=== PATIENT | male | born 1965 | race Caucasian/White ===

== ENCOUNTER 2016-11-14 12:57 | Inpatient (IN) | payer OTHER ==
[2016-11-14] VITALS (8 sets, daily range): BP systolic 114–132; BP diastolic 67–85; PULSE 95–127; RESP 16–18; TEMP 98.2–99; O2SAT 93–99
[~2016-11-14] VITALS: Ht 177.8 cm; Wt 103.0 kg
[~2016-11-14 12:57] MED LIST: NAPR550 PO; ST JTAB PO
--- NOTE | 2016-11-14 13:06 | PD ---
Physical Exam Date Seen by Provider: Nov 14, 2016 Time Seen by Provider: 13:03 Narrative 51 YOWM C/O FINGER TIP BRUISING. L INDEX THE WORST. POS DM. NO TOB. NO SOB OR CP VSS Data Data Last Documented VS Vital Signs Date Time Temp Pulse Resp B/P Pulse Ox O2 Delivery O2 Flow Rate FiO2 11/14/16 13:01 98.6 127 18 114/85 94 MDM Medical Record Reviewed: Yes Supervised Visit with RAYSA: Yes Mesfin Capellan Nov 14, 2016 13:06
[2016-11-14] MEDS ORDERED: SODIUM CHLORIDE 0.9% FLUSH 10 ML FLUSH IVF PRN (13:15)
[2016-11-14] MEDS ORDERED: GLIM1TAB PO (13:16)
[2016-11-14] MEDS ORDERED: METF500T PO (13:16)
[2016-11-14] MEDS ORDERED: ALBUAER3 INH (13:16)
[2016-11-14] MEDS ORDERED: ZANT300T PO (13:16)
--- NOTE | 2016-11-14 13:34 | PD ---
HPI Chief Complaint: Injury Time Seen by Provider: 13:26 Travel History International Travel<30 days: No Contact w/Intl Traveler<30days: No Traveled to known affect area: No History of Present Illness HPI [id number] male patient comes in the emergency department complaining of pain and discoloration the distal phalanx of his left hand second digit that began approximately 3 weeks ago. Patient awoke with the pain however over time progressively become more painful and discoloration to the tip of his finger. Patient states 2 days ago began as a pressure sensation in his right hand second digit distal phalanx. Patient denies any history of smoking or drug use. Patient denies any known trauma to it. Patient denies doing anything for it. Denies anything making it better. Pain is worse with movement of his left finger and palpation. Pain is sharp stabbing like in nature. Patient reports past medical history includes diabetes type 2, asthma, and chronic sinusitis. Denies any fevers with this. States just finished antibiotic yesterday for his chronic sinusitis PFSH Past Medical History Hx Anticoagulant Therapy: No Asthma: Yes Cardiovascular Problems: No Chemotherapy: No Cerebrovascular Accident: No Diabetes: No Patient Takes Glucophage: Yes Diminished Hearing: No Respiratory: Yes (ASTHMA ) Tetanus Vaccination: > 5 Years Influenza Vaccination: No Past Surgical History Hysterectomy: No Other Surgery: Yes (H/O CYST REMOVAL) Social History Alcohol Use: No Tobacco Use: No Substance Use: No Allergies-Medications (Allergen,Severity, Reaction): Coded Allergies: No Known Allergies (Verified , 11/14/16) Reported Meds & Prescriptions Reported Meds & Active Scripts Active Reported Zantac (Ranitidine HCl) 300 Mg Tab 300 Mg PO DAILY Proair Hfa 8.5 GM Inh (Albuterol Sulfate) 90 Mcg/Act Aer 1 Puff INH Q4H PRN 108 mcg/actuation Glimepiride 1 Mg Tab 1 Mg PO DAILY Take with breakfast or first main meal Metformin (Metformin HCl) 500 Mg Tab 500 Mg PO BIDPC With meals Review of Systems Except as stated in HPI: all other systems reviewed are Neg Physical Exam Narrative GENERAL: Well-developed, overly nourished, in no acute distress, and non-ill appearing. SKIN: Focused skin assessment warm and dry. Cyanotic/necrotic appearing distal phalanx second digit left upper extremity. Patient has purple discoloration noted to the distal phalanx of the first third digit left upper extremity and first second and third digits of right upper extremity. There is decreased capillary refill and are cooler to palpation than fourth and fifth digits. Is neurologically intact. Patient is slightly decreased range of motion with flexion of the left hand second digit secondary to pain. HEAD: Atraumatic. Normocephalic. EYES: Pupils equal and round. EOMI. No scleral icterus. No injection or drainage. ENT: No nasal bleeding or discharge. Mucous membranes pink and moist. NECK: Trachea midline. Supple. No nuclear rigidity. CARDIOVASCULAR: Radial pulses 2+, intact, equal bilaterally. RESPIRATORY: No accessory muscle use. No respiratory distress. MUSCULOSKELETAL: No obvious deformities. No clubbing. No edema. Full range of motion. NEUROLOGICAL: Awake and alert. No obvious cranial nerve deficits. Motor grossly within normal limits. Normal speech. PSYCHIATRIC: Appropriate mood and affect; insight and judgment normal. Data Data Last Documented VS Vital Signs Date Time Temp Pulse Resp B/P Pulse Ox O2 Delivery O2 Flow Rate FiO2 11/14/16 15:07 17 11/14/16 14:56 123/77 98 Room Air 11/14/16 13:35 103 11/14/16 13:01 98.6 Orders Basic Metabolic Panel (Bmp) (11/14/16 13:15) Complete Blood Count With Diff (11/14/16 13:15) Prothrombin Time / Inr (Pt) (11/14/16 13:15) Act Partial Throm Time (Ptt) (11/14/16 13:15) Ecg Monitoring (11/14/16 13:15) Iv Access Insert/Monitor (11/14/16 13:15) Oximetry (11/14/16 13:15) Oxygen Administration (11/14/16 13:15) Sodium Chloride 0.9% Flush (Ns Flush) (11/14/16 13:15) Finger (Apt2xut) (11/14/16 ) Cta Up Extrem W Iv Cont W 3d (11/14/16 ) Morphine Inj (Morphine Inj) (11/14/16 13:45) Ondansetron Inj (Zofran Inj) (11/14/16 13:45) Sodium Chlor 0.9% 1000 Ml Inj (Ns 1000 M (11/14/16 13:45) Lactic Acid (11/14/16 14:48) Potassium Chloride (Kcl) (11/14/16 15:00) Sodium Chlor 0.9% 1000 Ml Inj (Ns 1000 M (11/14/16 15:00) Morphine Inj (Morphine Inj) (11/14/16 15:00) Morphine Inj (Morphine Inj) (11/14/16 15:00) Blood Culture (11/14/16 15:02) Sodium Chlor 0.9% 1000 Ml Inj (Ns 1000 M (11/14/16 15:15) Sodium Chlor 0.9% 1000 Ml Inj (Ns 1000 M (11/14/16 15:15) Sodium Chlor 0.9% 1000 Ml Inj (Ns 1000 M (11/14/16 15:15) Ct Brain W & W/O Iv Contrast (11/14/16 ) Piperacil-Tazo 4.5 Gm Premix (Zosyn 4.5 (11/14/16 15:15) Vancomycin Inj (Vancomycin Inj) (11/14/16 15:15) Urinalysis - C+S If Indicated (11/14/16 15:05) Labs Laboratory Tests Test 11/14/16 11/14/16 13:30 14:50 White Blood Count 22.5 TH/MM3 Red Blood Count 4.25 MIL/MM3 Hemoglobin 10.5 GM/DL Hematocrit 33.3 % Mean Corpuscular Volume 78.4 FL Mean Corpuscular Hemoglobin 24.6 PG Mean Corpuscular Hemoglobin 31.4 % Concent Red Cell Distribution Width 15.8 % Platelet Count 504 TH/MM3 Mean Platelet Volume 7.0 FL Neutrophils (%) (Auto) 88.3 % Lymphocytes (%) (Auto) 4.7 % Monocytes (%) (Auto) 6.8 % Eosinophils (%) (Auto) 0.1 % Basophils (%) (Auto) 0.1 % Neutrophils # (Auto) 19.9 TH/MM3 Lymphocytes # (Auto) 1.1 TH/MM3 Monocytes # (Auto) 1.5 TH/MM3 Eosinophils # (Auto) 0.0 TH/MM3 Basophils # (Auto) 0.0 TH/MM3 CBC Comment AUTO DIFF Differential Comment AUTO DIFF CONFIRMED Platelet Estimate HIGH Platelet Morphology Comment NORMAL Prothrombin Time 14.6 SEC Prothromb Time International 1.3 RATIO Ratio Activated Partial 32.2 SEC Thromboplast Time Sodium Level 133 MEQ/L Potassium Level 3.1 MEQ/L Chloride Level 91 MEQ/L Carbon Dioxide Level 23.5 MEQ/L Anion Gap 19 MEQ/L Blood Urea Nitrogen 8 MG/DL Creatinine 0.64 MG/DL Estimat Glomerular Filtration 133 ML/MIN Rate Random Glucose 223 MG/DL Calcium Level 9.0 MG/DL Lactic Acid Level 1.7 mmol/L MDM Medical Decision Making Medical Screen Exam Complete: Yes Emergency Medical Condition: Yes Differential Diagnosis Occlusion, vascular spasm, infection, other Narrative Course Reevaluation patient's questionable slight facial droop noted on right. On further examination. Patient has asymmetrical rise of eyebrows, is unable to keep right eye closed to forced opening, and smile is asymmetrical with the inability to smile on the right. Patient reports this began yesterday when he noticed that he was having liquid drip out the side of his mouth. Patient denies any pain with this, headache, or numbness or tingling. Patient reports he thought that he just slept wrong. I discussed patient with Dr. Rios who saw, evaluated, and assume care of the patient. Please see her documentation for final diagnosis and disposition. Reinaldo Arenas Nov 14, 2016 13:34
[2016-11-14] MEDS ORDERED: MORPHINE SULFATE 4 MG/ML INJ IV PUSH ONE ×3 (13:45→15:00)
[2016-11-14] MEDS ORDERED: ONDANSETRON HCL 4 MG/2 ML VIAL IV PUSH ONE (13:45)
[2016-11-14] MEDS ORDERED: SODIUM CHLOR 0.9% 1000 ML INJ 1,000 ML IV ONE ×5 (13:45→15:15)
[2016-11-14 13:54] LABS: AUTOMATED NEUTROPHIL # 19.9 TH/MM3 (1.8-7.7); BASOPHIL % 0.1 % (0.0-2.0); EOSINOPHIL % 0.1 % (0.0-4.0); HEMATOCRIT 33.3 % (39.0-51.0); LYMPH % 4.7 % (9.0-44.0); LYMPHOCYTE # 1.1 TH/MM3 (1.0-4.8); MEAN CELL VOLUME 78.4 FL (80.0-100.0); MEAN CORPUSCULAR HEMOGLOBIN 24.6 PG (27.0-34.0); MEAN CORPUSCULAR HGB CONC 31.4 % (32.0-36.0); MONO % 6.8 % (0.0-8.0); NEUT % 88.3 % (16.0-70.0); PLATELET COUNT 504 TH/MM3 (150-450); RED BLOOD COUNT 4.25 MIL/MM3 (4.50-5.90); RED CELL DISTRIBUTION WIDTH 15.8 % (11.6-17.2); WHITE BLOOD COUNT 22.5 TH/MM3 (4.0-11.0)
[2016-11-14 13:59] LABS: HEMO FLAGS AUTO DIFF
[2016-11-14 14:10] LABS: APTT (PATIENT) 32.2 SEC (24.3-30.1); INTERNATIONAL NORMALIZED RATIO 1.3 RATIO; PROTHROMBIN TIME - PATIENT 14.6 SEC (9.8-11.6)
[2016-11-14 14:12] LABS: BICARBONATE 23.5 MEQ/L (21.0-32.0); POTASSIUM 3.1 MEQ/L (3.5-5.1)
[2016-11-14 14:30] LABS: PLATELET ESTIMATE SMEAR HIGH (NORMAL); PLATELET MORPHOLOGY NORMAL (NORMAL); SCAN/DIFF AUTO DIFF CONFIRMED
[2016-11-14] MEDS ORDERED: POTASSIUM CHLORIDE 20 MEQ CONTROLLED RELEASE TAB PO ONE (15:00)
--- NOTE | 2016-11-14 15:05 | RADRPT ---
EXAM DATE/TIME: 11/14/2016 14:37 [facility] COMPARISON: No previous studies available for comparison. INDICATIONS : Left hand second digit pain MEDICAL HISTORY : Diabetes mellitus type II. SURGICAL HISTORY : None. ENCOUNTER: Initial ACUITY: 3 weeks PAIN SCORE: 10/10 LOCATION: Left upper extremity FINDINGS: Examination of the second digit of the left hand demonstrates no evidence of fracture or dislocation. No radiopaque foreign bodies are seen. The soft tissues are intact. CONCLUSION: Unremarkable examination of the left second finger. David Palmer MD on November 14, 2016 at 15:02 Board Certified Radiologist. This report was verified electronically.
[2016-11-14] MEDS ORDERED: PIPERACIL-TAZO 4.5 GM PREMIX 100 ML IV ONE (15:15)
[2016-11-14] MEDS ORDERED: VANCOMYCIN INJ 1,000 MG in SODIUM CHLOR 0.9% 250 ML INJ 250 ML IV ONE (15:15)
[2016-11-14] MEDS ORDERED: POTASSIUM CHLOR 20 MEQ PREMIX 100 ML IV ONE (16:30)
[2016-11-14] MEDS ORDERED: POTASSIUM CHLORIDE 25 MEQ EFFERVESCENT TAB PO ONE (16:30)
--- NOTE | 2016-11-14 16:41 | PD ---
HPI Chief Complaint: Injury Time Seen by Provider: 13:14 Travel History International Travel<30 days: No Contact w/Intl Traveler<30days: No Traveled to known affect area: No History of Present Illness HPI 51-year-old male came to the emergency room with history of left index fingertip discoloration. He says it's been going on for past 2-3 weeks but worse today. He was seen by the PA initially and I've taken over the case. Patient was tachycardic upon arrival and continued to stay tachycardic. He looks to be in moderate distress and says that he has not been feeling good and dizzy and lightheaded for 2-3 weeks. He wasn't sure if he was getting any fever at home are not. He says he has been having a lot of head pressure and sinus kind of symptoms over the past few weeks. He also feels like his right ear is plugged up. While I was talking to him I noticed that he had difficulty closing his right eye completely when he blinked and some right-sided facial droop. Upon asking he said he noticed that since yesterday. He has been drooling a little bit when he drinks liquid. Patient does look to be in moderate distress in ER. Patient is a diabetic. He denies smoking cigarettes. PFSH Past Medical History Narrative Medical List of his past medical, surgical, social and family history is reviewed from the nursing note. Hx Anticoagulant Therapy: No Asthma: Yes Cardiovascular Problems: No Chemotherapy: No Cerebrovascular Accident: No Diabetes: No Patient Takes Glucophage: Yes Diminished Hearing: No Respiratory: Yes (ASTHMA ) Tetanus Vaccination: > 5 Years Influenza Vaccination: No Past Surgical History Hysterectomy: No Other Surgery: Yes (H/O CYST REMOVAL) Social History Alcohol Use: No Tobacco Use: No Substance Use: No Allergies-Medications (Allergen,Severity, Reaction): Coded Allergies: No Known Allergies (Verified , 11/14/16) Comments List of his allergies reviewed from the nursing note. Reported Meds & Prescriptions Reported Meds & Active Scripts Active Reported Zantac (Ranitidine HCl) 300 Mg Tab 300 Mg PO DAILY Proair Hfa 8.5 GM Inh (Albuterol Sulfate) 90 Mcg/Act Aer 1 Puff INH Q4H PRN 108 mcg/actuation Glimepiride 1 Mg Tab 1 Mg PO DAILY Take with breakfast or first main meal Metformin (Metformin HCl) 500 Mg Tab 500 Mg PO BIDPC With meals Narrative Medication List of his home medications reviewed from the nursing note. Review of Systems Except as stated in HPI: all other systems reviewed are Neg Physical Exam Narrative GENERAL: Awake, alert, moderate distress, disheveled SKIN: Focused skin assessment warm/dry. Pale. Left index finger distal phalanx is discolored and almost black in color. There is discoloration of his thumb on the same hand as well as discoloration of his right index and middle finger. It is not as black as the left index finger but definitely discolored compared to the other fingers. Distal radial pulses palpable. HEAD: Atraumatic. Normocephalic. EYES: Pupils equal and round. No scleral icterus. No injection or drainage. ENT: No nasal bleeding or discharge. Mucous membranes pink and moist. NECK: Trachea midline. No JVD. CARDIOVASCULAR: Regular rate and rhythm. Tachycardia. No murmur appreciated. RESPIRATORY: No accessory muscle use. Clear to auscultation. Breath sounds equal bilaterally. GASTROINTESTINAL: Abdomen soft, non-tender, nondistended. Hepatic and splenic margins not palpable. MUSCULOSKELETAL: No obvious deformities. No clubbing. No cyanosis. No edema. NEUROLOGICAL: Awake and alert. No obvious cranial nerve deficits. Motor grossly within normal limits. Normal speech. Right Akins's palsy. PSYCHIATRIC: Appropriate mood and affect; insight and judgment normal. Data Data Last Documented VS Vital Signs Date Time Temp Pulse Resp B/P Pulse Ox O2 Delivery O2 Flow Rate FiO2 11/14/16 17:19 98.2 100 18 124/67 99 Room Air Orders Basic Metabolic Panel (Bmp) (11/14/16 13:15) Complete Blood Count With Diff (11/14/16 13:15) Prothrombin Time / Inr (Pt) (11/14/16 13:15) Act Partial Throm Time (Ptt) (11/14/16 13:15) Ecg Monitoring (11/14/16 13:15) Iv Access Insert/Monitor (11/14/16 13:15) Oximetry (11/14/16 13:15) Oxygen Administration (11/14/16 13:15) Sodium Chloride 0.9% Flush (Ns Flush) (11/14/16 13:15) Finger (Vtr3psl) (11/14/16 ) Cta Up Extrem W Iv Cont W 3d (11/14/16 ) Morphine Inj (Morphine Inj) (11/14/16 13:45) Ondansetron Inj (Zofran Inj) (11/14/16 13:45) Sodium Chlor 0.9% 1000 Ml Inj (Ns 1000 M (11/14/16 13:45) Lactic Acid (11/14/16 14:48) Potassium Chloride (Kcl) (11/14/16 15:00) Sodium Chlor 0.9% 1000 Ml Inj (Ns 1000 M (11/14/16 15:00) Morphine Inj (Morphine Inj) (11/14/16 15:00) Morphine Inj (Morphine Inj) (11/14/16 15:00) Blood Culture (11/14/16 15:02) Sodium Chlor 0.9% 1000 Ml Inj (Ns 1000 M (11/14/16 15:15) Sodium Chlor 0.9% 1000 Ml Inj (Ns 1000 M (11/14/16 15:15) Sodium Chlor 0.9% 1000 Ml Inj (Ns 1000 M (11/14/16 15:15) Ct Brain W & W/O Iv Contrast (11/14/16 ) Piperacil-Tazo 4.5 Gm Premix (Zosyn 4.5 (11/14/16 15:15) Vancomycin Inj (Vancomycin Inj) (11/14/16 15:15) Urinalysis - C+S If Indicated (11/14/16 15:05) Potassium Chloride Eff (K-Lyte Cl Eff) (11/14/16 16:30) Potassium Chlor 20 Meq Premix (Kcl 20 Me (11/14/16 16:30) Electrocardiogram (11/14/16 ) Iohexol 350 Inj (Omnipaque 350 Inj) (11/14/16 16:59) Admit To Inpatient (11/14/16 ) Vital Signs (Adult) Q4H (11/14/16 17:57) Activity Oob With Assistance (11/14/16 17:57) Bedside Glucose ESPERANZA.AC&HS (11/14/16 17:57) Material Chaser / Telemetry .CONTINUOUS (11/14/16 17:57) Sodium Chlor 0.9% 1000 Ml Inj (Ns 1000 M (11/14/16 20:00) Sodium Chloride 0.9% Flush (Ns Flush) (11/14/16 18:00) Sodium Chloride 0.9% Flush (Ns Flush) (11/14/16 21:00) Acetaminophen (Tylenol) (11/14/16 18:00) Ondansetron Inj (Zofran Inj) (11/14/16 18:00) Magnesium Hydroxide Liq (Milk Of Magnesi (11/14/16 18:00) Basic Metabolic Panel (Bmp) (11/15/16 06:00) Complete Blood Count With Diff (11/15/16 06:00) Resp Oxygen Dex C Titrat 1-4 L (11/14/16 ) Pt Request For Service (11/14/16 17:57) Case Management Consult (11/14/16 17:57) Scd Bilateral/Knee High ESPERANZA.BID (11/14/16 17:57) Juan Bilateral/Knee High ESPERANZA.QSHIFT (11/14/16 17:57) Inpatient Certification (11/14/16 ) Diet 1800 Ada Cons Carb (11/14/16 Dinner) Piperacil-Tazo 4.5 Gm Premix (Zosyn 4.5 (11/14/16 21:00) Vancomycin Consult Pharmacy (Vancomycin (11/14/16 18:00) Consult Infectious Disease (11/14/16 ) Echo 2d Comp W/Dopp(Routine) (11/14/16 ) Consult Hand Surgery (11/14/16 ) Basic Metabolic Panel (Bmp) (11/14/16 18:01) Basic Metabolic Panel (Bmp) (11/15/16 18:01) Lactic Acid Sepsis Protocol (11/14/16 18:02) (Hub Use Only)Inp Phy Cons/Ref (11/14/16 ) Admit Order (Ed Use Only) (11/14/16 18:28) Labs Laboratory Tests Test 11/14/16 11/14/16 11/14/16 13:30 14:50 18:08 White Blood Count 22.5 TH/MM3 Red Blood Count 4.25 MIL/MM3 Hemoglobin 10.5 GM/DL Hematocrit 33.3 % Mean Corpuscular Volume 78.4 FL Mean Corpuscular Hemoglobin 24.6 PG Mean Corpuscular Hemoglobin 31.4 % Concent Red Cell Distribution Width 15.8 % Platelet Count 504 TH/MM3 Mean Platelet Volume 7.0 FL Neutrophils (%) (Auto) 88.3 % Lymphocytes (%) (Auto) 4.7 % Monocytes (%) (Auto) 6.8 % Eosinophils (%) (Auto) 0.1 % Basophils (%) (Auto) 0.1 % Neutrophils # (Auto) 19.9 TH/MM3 Lymphocytes # (Auto) 1.1 TH/MM3 Monocytes # (Auto) 1.5 TH/MM3 Eosinophils # (Auto) 0.0 TH/MM3 Basophils # (Auto) 0.0 TH/MM3 CBC Comment AUTO DIFF Differential Comment AUTO DIFF CONFIRMED Platelet Estimate HIGH Platelet Morphology Comment NORMAL Prothrombin Time 14.6 SEC Prothromb Time International 1.3 RATIO Ratio Activated Partial 32.2 SEC Thromboplast Time Sodium Level 133 MEQ/L 135 MEQ/L Potassium Level 3.1 MEQ/L 3.5 MEQ/L Chloride Level 91 MEQ/L 97 MEQ/L Carbon Dioxide Level 23.5 MEQ/L 27.9 MEQ/L Anion Gap 19 MEQ/L 10 MEQ/L Blood Urea Nitrogen 8 MG/DL 7 MG/DL Creatinine 0.64 MG/DL 0.57 MG/DL Estimat Glomerular Filtration 133 ML/MIN 152 ML/MIN Rate Random Glucose 223 MG/DL 190 MG/DL Calcium Level 9.0 MG/DL 8.3 MG/DL Lactic Acid Level 1.7 mmol/L 1.8 mmol/L [facility] Medical Decision Making Medical Screen Exam Complete: Yes Emergency Medical Condition: Yes Medical Record Reviewed: Yes Interpretation(s) Twelve-lead EKG was reviewed by me. Normal sinus rhythm, right axis deviation, right bundle branch block, tachycardia. Heart rate of 100 bpm. Differential Diagnosis Sepsis, septic emboli Narrative Course 4:37 PM blood test result that was ordered by the PA came back with significant leukocytosis and bandemia. Patient was started on IV antibiotic as per sepsis protocol by me and fluids. Lactic acid is within normal limit. Patient has slight anion gap increased. His sugar is elevated and his potassium is low. I replaced the potassium. Awaiting for the CAT scan to be resulted. He just came back from CT. Patient will require admission. The PA of the vascular surgeon is down here seeing another patient. I let her know about him as well and she will see him and let him know about the case. 5:46 PM vascular surgeon wanted hand surgeon to consult on the patient first given the location of the insufficiency. Hand surgery, Dr. Pablo will be called again once the report of the CT angiogram of the upper extremity which is pending. CAT scan of his head showed abnormal sinuses and nasal cavity but otherwise negative. Critical Care Narrative Aggregate critical care time was 45 minutes. Time to perform other separately billable procedures was not included in the critical care time. My time did not include minutes spent treating any other patients simultaneously or on activities that did not directly contribute to the patient's treatment. The services I provided to this patient were to treat and/or prevent clinically significant deterioration that could result in: Sepsis, sepsis protocol I provided critical care services requiring my management, as noted below: Chart data review, documentation time, medication orders and management, vital sign assessments/reviewing monitor data, ordering and reviewing lab tests, ordering and interpreting/reviewing x-rays and diagnostic studies, care of the patient and discussion of the patient with the admitting physicians. Procedures EKG Prior to Arrival: No Physician Communication Physician Communication Dr. Hassan, Dr. Huitron Diagnosis Primary Impression: Sepsis Qualified Code: A41.9 - Sepsis, due to unspecified organism Additional Impressions: Gangrene of finger Akins's palsy Admitting Information Admitting Physician Requests: Admit Elmer Marcelino MD Nov 14, 2016 16:41
[2016-11-14] MEDS: IOHEXOL 350 MG/ML 10 ML VIAL (for RAD DIAG) IV ONE (16:59)
--- NOTE | 2016-11-14 17:30 | RADRPT ---
EXAM DATE/TIME: 11/14/2016 16:29 [facility] COMPARISON: No previous studies available for comparison. INDICATIONS : Eval cerebral abscess. IV CONTRAST: 100 cc Omnipaque 350 (iohexol) IV RADIATION DOSE: 49.69 CTDIvol (mGy) MEDICAL HISTORY : Diabetes mellitus type 2. SURGICAL HISTORY : None. ENCOUNTER: Initial ACUITY: 1 day PAIN SCALE: 5/10 LOCATION: cranial TECHNIQUE: Multiple contiguous axial images were obtained of the head. Using automated exposure control and adj ustment of the mA and/or kV according to patient size, radiation dose was kept as low as reasonably a chievable to obtain optimal diagnostic quality images. FINDINGS: CEREBRUM: The ventricles are normal for age. No evidence of midline shift, cerebral edema or blood products. No extra-axial fluid collections are seen. POSTERIOR FOSSA: The cerebellum and brainstem are intact. The 4th ventricle is midline. The cerebellar pontine angle is unremarkable. EXTRACRANIAL: There is extensive sinus disease with complete or near complete opacification of multiple ethmoid air cells and portions of the sphenoid sinus. There is mucosal thickening in the frontal sinuses and vis ualized maxillary antra. The nasal cavity is severely disrupted with absence of the nasal septum and turbinates in the visualized upper nasal cavity. This could be a destructive phenomena if the patient has not had some sort of aggressive surgery to account for the appearance. SKULL: The calvaria is intact. No evidence of skull fracture. POST CONTRAST: No abnormal areas of parenchymal or dural enhancement. No evidence of blood-brain barrier breakdown. CONCLUSION: No acute intracranial findings. Severely abnormal appearance of the sinuses and nasal cavity David Palmer MD on November 14, 2016 at 17:25 Board Certified Radiologist. This report was verified electronically.
[2016-11-14] MEDS ORDERED: SODIUM CHLORIDE 0.9% FLUSH 10 ML FLUSH IV FLUSH PRN (18:00)
[2016-11-14] MEDS ORDERED: ACETAMINOPHEN 325 MG TAB PO PRN (18:00)
[2016-11-14] MEDS ORDERED: VANCOMYCIN INJ 1,250 MG in SODIUM CHLOR 0.9% 250 ML INJ 250 ML IV SCH (18:00)
[2016-11-14] MEDS ORDERED: MAGNESIUM HYDROXIDE SUSP 30 ML CUP PO PRN (18:00)
[2016-11-14] MEDS ORDERED: ONDANSETRON HCL 4 MG/2 ML VIAL IVP PRN (18:00)
[2016-11-14] MEDS ORDERED: Vancomycin Consult Pharmacy 1 EA OTHER SCH (18:00)
--- NOTE | 2016-11-14 18:28 | RADRPT ---
EXAM DATE/TIME: 11/14/2016 16:37 [facility] COMPARISON: No previous studies available for comparison. INDICATIONS : Pain and discoloration of left second digit. IV CONTRAST: 100 cc Omnipaque 350 (iohexol) IV ; Cumulative dose for multiple exams. RADIATION DOSE: 16.45 CTDIvol (mGy) MEDICAL HISTORY : Venous insufficiency. SURGICAL HISTORY : None. ENCOUNTER: Initial ACUITY: 1 day PAIN SCALE: 5/10 LOCATION: Left fingers TECHNIQUE: Volumetric scanning was performed using a multirow detector CT scanner. Using automated exposure cont rol and adjustment of the mA and/or kV according to patient size, radiation dose was kept as low as r easonably achievable to obtain optimal diagnostic quality images. The data was post processed with a variety of visualization algorithms including full-volume maximum intensity projection, multiplanar sliding thin-slab reformation, curved-planar reformation, and surface-rendering techniques. Using au tomated exposure control and adjustment of the mA and/or kV according to patient size, radiation dose was kept as low as reasonably achievable to obtain optimal diagnostic quality images. FINDINGS: There is normal diameter and smooth margins of the distal axillary artery, and throughout the brachia l artery. There is a normal bifurcation and flow seen in the proximal radial and ulnar arteries. Fl ow is seen in the radial artery all the way to the wrist and the flow the ulnar artery tapers out in the distal one third of the forearm. No vessel truncation and no aneurysm. CONCLUSION: Negative CTA of the upper extremity. Flow is seen down to the wrist via the radial artery. Tom Campos MD on November 14, 2016 at 18:24 Board Certified Radiologist. This report was verified electronically.
[2016-11-14 18:40] LABS: BICARBONATE 27.9 MEQ/L (21.0-32.0); POTASSIUM 3.5 MEQ/L (3.5-5.1)
[2016-11-14] MEDS: SODIUM CHLOR 0.9% 1000 ML INJ 1,000 ML IV SCH (20:13)
[2016-11-14] MEDS: SODIUM CHLORIDE 0.9% FLUSH 10 ML FLUSH IV FLUSH SCH (21:00)
[2016-11-14] MEDS ORDERED: ACETAMINOPHEN/HYDROcodone 325 MG/5 MG TAB PO PRN (21:15)
[2016-11-14] MEDS ORDERED: ALBUTEROL SULFATE 90 MCG/ACT HFA 18 GM INHALER INH PRN (21:15)
[2016-11-14] MEDS ORDERED: DEXTROSE 50% IN WATER 50 ML VIAL(D50) IV PUSH PRN (21:15)
[2016-11-14] MEDS ORDERED: GLUCAGON 1 MG/ML VIAL OTHER PRN (21:15)
--- NOTE | 2016-11-14 21:26 | HHI.HP ---
[facility] Ruben Harrison MD Admission Diagnosis sepsis, finger gangrene Diagnoses: (1) Gangrene of finger Diagnosis: Principal Chief Complaint: pain/ discoloration of the left index finger Travel History International Travel<30 Days: No Contact w/Intl Traveler <30 Da: No Traveled to Known Affected Are: No History of Present Illness patient is a 51 y/o male with history of diabetes who presented to ER with pain and discoloration of the left index finger. he says that it started as a ' bruise' about three weeks ago. however it started to get painful and cold about a week ago. he says that he noticed that the first three right fingers started to have some discoloration today. no history of similar episodes in the past. during my evaluation I noticed that he wasn't able to open the right eye completely and had some facial droop on the right side. on further questioning he said that he had these symptoms since yesterday. Review of Systems Constitutional: DENIES: Fever, Weight loss, Chills, Night Sweats Eyes: DENIES: Blurred vision, Diplopia, Vision loss, Double Vision Ears, nose, mouth, throat: DENIES: Tinnitus, Vertigo, Throat pain, Epistaxis Respiratory: DENIES: Apneas, Cough, Snoring, Wheezing, Hemoptysis, Sputum production, Shortness of breath Cardiovascular: DENIES: Chest pain, Palpitations, Syncope, Dyspnea on Exertion , PND, Lower Extremity Edema, Orthopnea, Claudication Gastrointestinal: DENIES: Abdominal pain, Black stools, Bloody stools, Constipation, Diarrhea, Nausea, Vomiting, Difficulty Swallowing, Anorexia Genitourinary: DENIES: Urinary frequency, Urgency, Hematuria, Dysuria Musculoskeletal: DENIES: Joint pain, Muscle aches, Stiffness, Joint Swelling Integumentary: DENIES: Rash Neurologic: DENIES: Abnormal gait, Headache, Localized weakness, Paresthesias, Seizures, Speech Problems, Tremor, Poor Balance Psychiatric: DENIES: Anxiety, Confusion, Mood changes, Depression, Hallucinations, Agitation, Suicidal Ideation, Homicidal Ideation, Delusions discoloration/ pain to the left index finger Past Family Social History Past Medical History diabetes mellitus murphy's palsy Past Surgical History sinus surgery Reported Medications Zantac (Ranitidine HCl) 300 Mg Tab 300 Mg PO DAILY Proair Hfa 8.5 GM Inh (Albuterol Sulfate) 90 Mcg/Act Aer 1 Puff INH Q4H PRN 108 mcg/actuation Glimepiride 1 Mg Tab 1 Mg PO DAILY Take with breakfast or first main meal Metformin (Metformin HCl) 500 Mg Tab 500 Mg PO BIDPC With meals Allergies: Coded Allergies: No Known Allergies (Verified , 11/14/16) Active Ordered Medications Current Medications Sodium Chloride (NS Flush) 2 ml UNSCH PRN IVF FLUSH AFTER USING IV ACCESS Last administered on 11/14/16 14:40; Start 11/14/16 at 13:15; Stop 11/14/16 at 19:05; Status DC Morphine Sulfate (Morphine Inj) 2 mg ONCE ONCE IV PUSH Last administered on 13:41; Start 11/14/16 at 13:45; Stop 11/14/16 at 13:46; Status DC Ondansetron HCl 4 mg 4 mg ONCE ONCE IV PUSH Last administered on 11/14/16 13: 41; Start 11/14/16 at 13:45; Stop 11/14/16 at 13:46; Status DC Sodium Chloride (NS 1000 ml Inj) 1,000 ml @ 999 mls/hr BOLUS ONCE IV Last administered on 11/14/16 13:40; Start 11/14/16 at 13:45; Stop 11/14/16 at 14:45; Status DC Potassium Chloride 40 meq 40 meq ONCE ONCE PO Last administered on 11/14/16 15 :01; Start 11/14/16 at 15:00; Stop 11/14/16 at 15:01; Status DC Sodium Chloride (NS 1000 ml Inj) 1,000 ml @ 999 mls/hr BOLUS ONCE IV Last administered on 11/14/16 15:01; Start 11/14/16 at 15:00; Stop 11/14/16 at 16:00; Status DC Morphine Sulfate (Morphine Inj) 2 mg ONCE ONCE IV PUSH ; Start 11/14/16 at 15:00 ; Stop 11/14/16 at 15:00; Status DC Morphine Sulfate 4 mg 4 mg ONCE ONCE IV PUSH Last administered on 11/14/16 15: 02; Start 11/14/16 at 15:00; Stop 11/14/16 at 15:01; Status DC Sodium Chloride 1,000 ml @ 999 mls/hr BOLUS ONCE IV Last administered on 15:19; Start 11/14/16 at 15:15; Stop 11/14/16 at 16:15; Status DC Sodium Chloride 1,000 ml @ 999 mls/hr BOLUS ONCE IV Last administered on 15:20; Start 11/14/16 at 15:15; Stop 11/14/16 at 16:15; Status DC Sodium Chloride 1,000 ml @ 999 mls/hr BOLUS ONCE IV Last administered on 15:40; Start 11/14/16 at 15:15; Stop 11/14/16 at 16:15; Status DC Piperacillin Sod/ Tazobactam Sod 100 ml @ 200 mls/hr ONCE ONCE IV Last administered on 11/14/16 15:19; Start 11/14/16 at 15:15; Stop 11/14/16 at 15:44; Status DC Vancomycin HCl/ Sodium Chloride (Vancomycin Inj/ NS 250 ml Inj) 250 ml @ 250 mls/hr ONCE ONCE IV Last administered on 11/14/16 15:20; Start 11/14/16 at 15: 15; Stop 11/14/16 at 16:14; Status DC Potassium Bicarb/ Potassium Chloride 25 meq 25 meq ONCE ONCE PO Last administered on 11/14/16 17:01; Start 11/14/16 at 16:30; Stop 11/14/16 at 16:31; Status DC Potassium Chloride (KCl 20 Meq Premix Inj) 100 ml @ 50 mls/hr ONCE ONCE IV Last administered on 11/14/16 17:01; Start 11/14/16 at 16:30; Stop 11/14/16 at 18: 29; Status DC Iohexol 100 ml 100 ml STK-MED ONCE IV Last administered on 11/14/16 16:59; Start 11/14/16 at 16:59; Stop 11/14/16 at 17:00; Status DC Sodium Chloride (NS 1000 ml Inj) 1,000 ml @ 100 mls/hr Q10H IV Last administered on 4/4/17at 20:13; Start 11/14/16 at 20:00 Sodium Chloride (NS Flush) 2 ml UNSCH PRN IV FLUSH FLUSH AFTER USING IV ACCESS ; Start 11/14/16 at 18:00 Sodium Chloride (NS Flush) 2 ml BID IV FLUSH ; Start 11/14/16 at 21:00 Acetaminophen (Tylenol) 650 mg Q4H PRN PO TEMP > 100.4; Start 11/14/16 at 18:00 Ondansetron HCl (Zofran Inj) 4 mg Q6H PRN IVP NAUSEA OR VOMITING; Start at 18:00 Magnesium Hydroxide 30 ml 30 ml Q12H PRN PO CONSTIPATION; Start 11/14/16 at 18: 00 Piperacillin Sod/ Tazobactam Sod 100 ml @ 200 mls/hr Q6H IV ; Start 11/14/16 at 21:00 Vancomycin HCl 1250 mg/Sodium Chloride 262.5 ml @ 262.5 mls/ hr Q24H IV ; Start 11/14/16 at 18:00; Status UNV Pharmacy Profile Note 0 ml @ 0 mls/hr UNSCH OTHER ; Start 11/14/16 at 18:00 Vancomycin HCl/ Sodium Chloride (Vancomycin Inj/ NS 500 ml Inj) 516 ml @ 250 mls/hr Q12H IV ; Start 11/14/16 at 22:00 Miscellaneous Information SPECIFIC LAB TO BE ... ONCE ONCE .XX ; Start at 09:45; Stop 11/16/16 at 09:46 Family History not significant. Social History no smoking or drinking. Physical Exam Vital Signs Vital Signs Date Time Temp Pulse Resp B/P Pulse Ox O2 Delivery O2 Flow Rate FiO2 11/14/16 20:22 98.4 102 16 120/71 98 11/14/16 19:54 98.5 100 16 122/70 98 Room Air 11/14/16 17:19 98.2 100 18 124/67 99 Room Air 11/14/16 15:07 17 11/14/16 14:56 18 123/77 98 Room Air 11/14/16 13:46 17 11/14/16 13:35 103 17 132/78 97 Room Air 11/14/16 13:25 18 97 Room Air 11/14/16 13:25 97 Room Air 11/14/16 13:09 106 18 97 Room Air 11/14/16 13:01 98.6 127 18 114/85 94 Physical Exam GENERAL: This is a well-nourished, well-developed patient, in no apparent distress. SKIN:discoloration of the left index finger and the first three fingers on the right HEAD: Atraumatic. Normocephalic. No temporal or scalp tenderness. EYES: Pupils equal round and reactive. Extraocular motions intact. No scleral icterus. No injection or drainage. ENT: Nose without bleeding, purulent drainage or septal hematoma. Throat without erythema, tonsillar hypertrophy or exudate. Uvula midline. Airway patent. NECK: Trachea midline. No JVD or lymphadenopathy. Supple, nontender, no meningeal signs. CARDIOVASCULAR: Regular rate and rhythm without murmurs, gallops, or rubs. RESPIRATORY: Clear to auscultation. Breath sounds equal bilaterally. No wheezes , rales, or rhonchi. GASTROINTESTINAL: Abdomen soft, non-tender, nondistended. No hepato-splenomegaly , or palpable masses. No guarding. MUSCULOSKELETAL: Extremities without clubbing, cyanosis, or edema. No joint tenderness, effusion, or edema noted. No calf tenderness. Negative Homans sign bilaterally. NEUROLOGICAL: Awake and alert. Cranial nerves II through XII intact. Motor and sensory grossly within normal limits. Five out of 5 muscle strength in all muscle groups. Normal speech. Laboratory Laboratory Tests Test 11/14/16 11/14/16 11/14/16 13:30 14:50 18:08 White Blood Count 22.5 Red Blood Count 4.25 Hemoglobin 10.5 Hematocrit 33.3 Mean Corpuscular Volume 78.4 Mean Corpuscular Hemoglobin 24.6 Mean Corpuscular Hemoglobin 31.4 Concent Red Cell Distribution Width 15.8 Platelet Count 504 Mean Platelet Volume 7.0 Neutrophils (%) (Auto) 88.3 Lymphocytes (%) (Auto) 4.7 Monocytes (%) (Auto) 6.8 Eosinophils (%) (Auto) 0.1 Basophils (%) (Auto) 0.1 Neutrophils # (Auto) 19.9 Lymphocytes # (Auto) 1.1 Monocytes # (Auto) 1.5 Eosinophils # (Auto) 0.0 Basophils # (Auto) 0.0 CBC Comment AUTO DIFF Differential Comment AUTO DIFF CONFIRMED Platelet Estimate HIGH Platelet Morphology Comment NORMAL Prothrombin Time 14.6 Prothromb Time International 1.3 Ratio Activated Partial 32.2 Thromboplast Time Sodium Level 133 135 Potassium Level 3.1 3.5 Chloride Level 91 97 Carbon Dioxide Level 23.5 27.9 Anion Gap 19 10 Blood Urea Nitrogen 8 7 Creatinine 0.64 0.57 Estimat Glomerular Filtration 133 152 Rate Random Glucose 223 190 Calcium Level 9.0 8.3 Lactic Acid Level 1.7 1.8 Date/Time Procedure Status Source Growth 11/14/16 15:11 Aerobic Blood Culture Received Blood Peripheral Pending 11/14/16 15:11 Anaerobic Blood Culture Received Blood Peripheral Pending Result Diagram: 11/14/16 1330 11/14/16 1808 Imaging Last Impressions Upper Extremity CTA 11/14/16 0000 Signed Impressions: Service Date/Time: Monday, November 14, 2016 16:37 - CONCLUSION: Negative CTA of the upper extremity. Flow is seen down to the wrist via the radial artery. Tom Campos MD Head CT 11/14/16 0000 Signed Impressions: Service Date/Time: Monday, November 14, 2016 16:29 - CONCLUSION: No acute intracranial findings. Severely abnormal appearance of the sinuses and nasal cavity David Palmer MD Finger X-Ray 11/14/16 0000 Signed Impressions: Service Date/Time: Monday, November 14, 2016 14:37 - CONCLUSION: Unremarkable examination of the left second finger. David Palmer MD Assessment and Plan Assessment and Plan A/P - left index finger discoloration CTA of the left upper extremity negative. d/w hand surgery mariama who recommended vascular surgery evaluation and trial of CCB; will start him on Amlodipine. 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 Physician Certification 2 Midnight Certification Type: Admission for Inpatient Services Order for Inpatient Services The services are ordered in accordance with Medicare regulations or non- Medicare payer requirements, as applicable. In the case of services not specified as inpatient-only, they are appropriately provided as inpatient services in accordance with the 2-midnight benchmark. Estimated LOS (days): 2 days is the estimated time the patient will need to remain in the hospital, assuming treatment plan goals are met and no additional complications. Post-Hospital Plan: Home Andre Díaz MD Nov 14, 2016 21:26
--- NOTE | 2016-11-14 21:34 | MB ---
cc: ADAN BLANC MD DATE OF CONSULTATION 11/14/2016 REASON FOR CONSULTATION Discoloration fingers of both hands. HISTORY OF THE PRESENT ILLNESS The patient is a 51-year-old left-hand dominant male with history of diabetes, presented to the ED with complaints of discoloration of the left index finger of three weeks duration. The patient states he noticed slight discoloration of the left index finger which has gradually worsened for the past three days. He also complains of discoloration, change in color involving the left thumb and middle fingers on the left side, and he also complains of discoloration involving the right hand which is worse for the past one day. The patient denies any history of similar complaints in the past. The patient also complains of tingling sensation involving fingertips. He also complains of associated pain. He also complains of feeling of cold involving the fingertips. The patient gives history of repeated sinus infection. He also had CT scan of the brain for possible Twining palsy. He denies any fever. PAST MEDICAL AND SURGICAL HISTORY His past medical and surgical history are noted significant for diabetes. PHYSICAL EXAMINATION GENERAL: The patient is alert and oriented times three. Not in acute distress. EXTREMITIES: Examination of the left hand reveals discoloration of the index finger from the DIP joint region distally. No evidence of capillary refill noted. There is also evidence of purplish discoloration of the thumb and middle fingers. The fingertips are cold to touch from middle phalanx region. No palpable digital artery. Delayed capillary refill noted in the finger pulps as well as the thumb pulp. He has palpable radial artery. Ulnar arteries not palpable. He has palpable brachial artery. The patient is able to make a full fist. He has full extension of the fingers. Range of motion of the fingers is associated with pain. Decreased sensation noted ove the fingertips. Examination of right hand reveals purplish discoloration as well as pale fingertips. The fingertips are cold to touch from the middle phalanx region distally. Capillary refill is delayed. No palpable digital arteries. He has palpable radial artery. Ulnar artery is questionable. He has decreased sensation over the fingertips. Pulse ox over the fingers is not able to pick any signal over the index finger. Other fingers have poor quality wave forms. Doppler ultrasound was carried out bedside. He has good Dopplerable pulses at the radial and ulnar arteries. Weak Dopplerable pulses in the arch and weak Dopplerable pulses in the digital arteries. This appears to be bilaterally symmetrical. CTA of the left upper extremity was reviewed. Also had a discussion regarding the same with the radiologist. He has good flow in the radial artery up to the anatomical snuff box and the artery tapers off with no formation of the arch. The ulnar artery has good takeoff and tapers off in the proximal to mid forearm in a smooth tapering extending up to the wrist region. No superficial palmar visible visible on the CTA. LABORATORY DATA His lab work was reviewed. He has a white count of 22. He has a neutrophil shift of 83%. He has a PT of 14.6 and APTT of 32.2. Chemistry he has low sodium levels. ASSESSMENT A 51-year-old male with diabetes and bilateral ischemic fingers. PLAN The patient appears to have ischemic fingers with decreased capillary refill and cold fingers from distal to the middle phalanx region bilaterally. He also has necrotic left index fingertip. Differential diagnosis includes vascular spasm, vasculitis, septic emboli. He would also benefit from angiogram after the discussion with the radiologist to better delineate the vascular anatomy. Plan will be to obtain a vascular consult and we will have a discussion with hospitalist regarding calcium channel blockers, anticoagulation and hand surgery will follow. Adan Blanc MD SE/LOREN /8:17 PM /9:10 PM ROSIBEL
[2016-11-14] MEDS ORDERED: VANCOMYCIN INJ 1,600 MG in SODIUM CHLORID 0.9% 500 ML INJ 500 ML IV SCH (22:00)
[2016-11-14] MEDS: PIPERACIL-TAZO 4.5 GM PREMIX 100 ML IV SCH (22:38)
[2016-11-14 22:53] LABS: BACTERIA, URINE RARE /hpf; BLOOD, URINE LARGE (NEG); GLUCOSE,URINE NEG (NEG); KETONE, URINE 80 mg/dL (NEG); MUCUS URINE FEW /lpf (OCC); NITRITE,URINE NEG (NEG); PH, URINE 6.5 (5.0-8.5); RENAL EPITHELIAL CELLS <1 /hpf; SQUAMOUS EPITHELIAL CELL URINE <1 /hpf (0-5); TRANSITIONAL EPI CELLS, URINE <1 /hpf; URINE COLOR YELLOW (YELLW/STRAW)
[2016-11-14 22:54] LABS: COMMENT (UR) CULT NOT INDICATED; CULTURE IF INDICATED CULT NOT INDICATED
[2016-11-15] VITALS (8 sets, daily range): BP systolic 117–133; BP diastolic 66–88; PULSE 96–105; RESP 16–22; TEMP 98–99.8; O2SAT 86–96
[2016-11-15] MEDS: amLODIPine BESYLATE 5 MG TAB PO SCH ×2 (00:15→08:53)
[2016-11-15] MEDS: HYDROmorphone HCL PF 1 MG/ML VIAL IV PUSH PRN ×4 (00:27→17:56)
[2016-11-15] MEDS: PIPERACIL-TAZO 4.5 GM PREMIX 100 ML IV SCH ×2 (03:26→08:53)
[2016-11-15] MEDS: SODIUM CHLOR 0.9% 1000 ML INJ 1,000 ML IV SCH (05:17)
[2016-11-15] MEDS: INSULIN ASPART SUPPLEMENTAL SCALE SQ SCH ×4 (05:57→21:35)
[2016-11-15 07:49] LABS: AUTOMATED NEUTROPHIL # 11.1 TH/MM3 (1.8-7.7); BASOPHIL % 0.3 % (0.0-2.0); EOSINOPHIL # 0.2 TH/MM3 (0-0.4); EOSINOPHIL % 1.4 % (0.0-4.0); HEMATOCRIT 29.1 % (39.0-51.0); LYMPH % 9.6 % (9.0-44.0); LYMPHOCYTE # 1.3 TH/MM3 (1.0-4.8); MEAN CELL VOLUME 76.9 FL (80.0-100.0); MEAN CORPUSCULAR HEMOGLOBIN 24.6 PG (27.0-34.0); MEAN CORPUSCULAR HGB CONC 31.9 % (32.0-36.0); MONO % 9.2 % (0.0-8.0); NEUT % 79.5 % (16.0-70.0); PLATELET COUNT 432 TH/MM3 (150-450); RED BLOOD COUNT 3.78 MIL/MM3 (4.50-5.90); RED CELL DISTRIBUTION WIDTH 15.5 % (11.6-17.2); WHITE BLOOD COUNT 13.9 TH/MM3 (4.0-11.0)
[2016-11-15 07:52] LABS: HEMO FLAGS AUTO DIFF
[2016-11-15 08:13] LABS: POTASSIUM 3.1 MEQ/L (3.5-5.1)
[2016-11-15 08:21] LABS: BICARBONATE 26.9 MEQ/L (21.0-32.0)
[2016-11-15 08:39] LABS: SCAN/DIFF AUTO DIFF CONFIRMED
[2016-11-15] MEDS: FAMOTIDINE 20 MG TAB PO SCH ×2 (08:53→21:34)
--- NOTE | 2016-11-15 09:15 | PD.CONS ---
History of Present Illness Service Infectious disease Consult Requested By Dr Daryn Russell Reason for Consult Evaluate patient for possible septic emboli Primary Care Physician Ruben Harrison MD Diagnoses: History of Present Illness Patient seen and examined. Records reviewed. Patient is a 51-year-old male presented to the hospital for further evaluation of purplish discoloration of his left index finger. Patient initially noted a discoloration on his left index finger about 3 weeks ago. He thought it was a bruise and he just monitored it. It was not improving and it was changing color , and about for 5 days ago he started getting really dark. He also noted some discoloration beginning on his left middle finger as well as his thumb, and also noted some changes on his right hand. There is some numbness to it. He has no prior history of experiencing any cyanosis of his fingers at any time. Had any fever or chills or sweats. Patient has had sinus problems since around 2014, and that time he was treated initially conservatively, but he was not improving, and subsequently underwent surgery at [facility]. Since around March or April, he started having symptoms again related to his sinuses, and he saw his ENT doctor. He was being referred to a surgeon in [place], but apparently his insurance did not cover that. He was managed conservatively again and his been having on and off exacerbation of his sinus problem. The last time he received any antibiotics for his sinusitis was about a month ago. About a day prior to admission patient also noted some problem on the right side of his face. Patient denies any previous heart problem. Patient has had problem with asthma. Since admission he has not had any fever. His sedimentation rate and CRP are both elevated. He is now being worked up for septic emboli, and there is a vascular consult pending. The CTA was unremarkable. His initial WBC was 22,000. Infectious disease consultation has been requested to evaluate the patient. Review of Systems Constitutional: DENIES: Fever, Weight loss, Chills Eyes: DENIES: Eye pain Ears, nose, mouth, throat: COMPLAINS OF: Nasal discharge, Throat pain, Hoarseness, Sinus Pain, DENIES: Oral lesions, Ear Pain, Toothache Respiratory: COMPLAINS OF: Cough, Wheezing, Shortness of breath, DENIES: Sputum production Cardiovascular: DENIES: Chest pain, Palpitations Gastrointestinal: DENIES: Abdominal pain, Constipation, Diarrhea, Nausea, Vomiting, Difficulty Swallowing Genitourinary: DENIES: Dysuria Musculoskeletal: DENIES: Joint pain, Muscle aches, Joint Swelling Neurologic: COMPLAINS OF: Paresthesias, DENIES: Headache Psychiatric: DENIES: Hallucinations Past Family Social History Allergies: Coded Allergies: No Known Allergies (Verified , 11/14/16) Past Medical History diabetes mellitus murphy's palsy Asthma, and patient was told it was work-related Past Surgical History Sinus surgery Active Ordered Medications Tylenol [place] Albuterol Norvasc Pepcid Dilaudid Insulin MOM Morphine Zosyn Vancomycin Social History No smoking Alcohol abuse No illicit drug use Works as a boom truck driver Physical Exam Vital Signs Vital Signs Date Time Temp Pulse Resp B/P Pulse Ox O2 Delivery O2 Flow Rate FiO2 11/15/16 04:00 99.8 96 16 119/66 94 11/15/16 02:07 86 11/15/16 00:00 98.5 101 18 117/70 92 11/14/16 20:40 99.0 95 18 130/69 93 11/14/16 20:22 98.4 102 16 120/71 98 11/14/16 19:54 98.5 100 16 122/70 98 Room Air 11/14/16 17:19 98.2 100 18 124/67 99 Room Air 11/14/16 15:07 17 11/14/16 14:56 18 123/77 98 Room Air 11/14/16 13:46 17 11/14/16 13:35 103 17 132/78 97 Room Air 11/14/16 13:25 18 97 Room Air 11/14/16 13:25 97 Room Air 11/14/16 13:09 106 18 97 Room Air 11/14/16 13:01 98.6 127 18 114/85 94 Physical Exam GENERAL: This is a well-nourished, well-developed male, awake and alert, not toxic appearing, not in respiratory distress. SKIN: Cool and dry. Has mottling noted on his R hand, R foot, and LMF and L thumb. Has gangrene at distal LIF. Some embolic lesions on his R palm HEAD: Atraumatic. Normocephalic. No temporal or scalp tenderness. EYES: [place] conjunctivae, no petechia or subconjunctival hemorrhage. Pupils equal round and reactive. Extraocular motions intact. No scleral icterus. No injection or drainage. ENT: Nose without bleeding, or purulent drainage. Moist oral mucosa. Troat without erythema, or exudate. Airway patent. NECK: Trachea midline. No JVD or lymphadenopathy. Supple, nontender, no meningeal signs. CARDIOVASCULAR: Regular rate and rhythm without murmurs, gallops, or rubs. Difficult exam due to the diffuse rhonchi. RESPIRATORY: Has diffuse rhonchi bilaterally. Equal breath sounds. GASTROINTESTINAL: Abdomen soft, non-tender, nondistended. Bowel sounds are present and normoactive. No hepato-splenomegaly, or palpable masses. No guarding. MUSCULOSKELETAL: Extremities without clubbing, or edema. No joint effusion, or edema noted, has good ROM. No calf tenderness. Negative Homans sign bilaterally. Findings also as described in the skin exam NEUROLOGICAL: Awake and alert. Has decreased nasolabial fold on R, not closing R eye, not raising R eyebrow. Five out of 5 muscle strength in all muscle groups. Normal speech. PSYCH: Calm and cooperative LINE: PIV with no evidence of infection Laboratory Laboratory Tests Test 11/14/16 11/14/16 11/14/16 11/14/16 13:30 14:50 18:08 22:20 White Blood Count 22.5 Red Blood Count 4.25 Hemoglobin 10.5 Hematocrit 33.3 Mean Corpuscular Volume 78.4 Mean Corpuscular Hemoglobin 24.6 Mean Corpuscular Hemoglobin 31.4 Concent Red Cell Distribution Width 15.8 Platelet Count 504 Mean Platelet Volume 7.0 Neutrophils (%) (Auto) 88.3 Lymphocytes (%) (Auto) 4.7 Monocytes (%) (Auto) 6.8 Eosinophils (%) (Auto) 0.1 Basophils (%) (Auto) 0.1 Neutrophils # (Auto) 19.9 Lymphocytes # (Auto) 1.1 Monocytes # (Auto) 1.5 Eosinophils # (Auto) 0.0 Basophils # (Auto) 0.0 CBC Comment AUTO DIFF Differential Comment AUTO DIFF CONFIRMED Platelet Estimate HIGH Platelet Morphology Comment NORMAL Prothrombin Time 14.6 Prothromb Time International 1.3 Ratio Activated Partial 32.2 Thromboplast Time Sodium Level 133 135 Potassium Level 3.1 3.5 Chloride Level 91 97 Carbon Dioxide Level 23.5 27.9 Anion Gap 19 10 Blood Urea Nitrogen 8 7 Creatinine 0.64 0.57 Estimat Glomerular Filtration 133 152 Rate Random Glucose 223 190 Calcium Level 9.0 8.3 Lactic Acid Level 1.7 1.8 Urine Color YELLOW Urine Turbidity CLEAR Urine pH 6.5 Urine Specific [place] GREATER THAN 1.050 Urine Protein 30 Urine Glucose (UA) NEG Urine Ketones 80 Urine Occult Blood LARGE Urine Nitrite NEG Urine Bilirubin NEG Urine Urobilinogen 2.0 Urine Leukocyte Esterase NEG Urine RBC 42 Urine WBC 4 Urine Squamous Epithelial <1 Cells Urine Transitional Epithelial <1 Cells Urine Renal Epithelial Cells <1 Urine Bacteria RARE Urine Mucus FEW Microscopic Urinalysis Comment CULT NOT INDICATED Test 11/15/16 07:12 White Blood Count 13.9 Red Blood Count 3.78 Hemoglobin 9.3 Hematocrit 29.1 Mean Corpuscular Volume 76.9 Mean Corpuscular Hemoglobin 24.6 Mean Corpuscular Hemoglobin 31.9 Concent Red Cell Distribution Width 15.5 Platelet Count 432 Mean Platelet Volume 6.5 Neutrophils (%) (Auto) 79.5 Lymphocytes (%) (Auto) 9.6 Monocytes (%) (Auto) 9.2 Eosinophils (%) (Auto) 1.4 Basophils (%) (Auto) 0.3 Neutrophils # (Auto) 11.1 Lymphocytes # (Auto) 1.3 Monocytes # (Auto) 1.3 Eosinophils # (Auto) 0.2 Basophils # (Auto) 0.0 CBC Comment AUTO DIFF Differential Comment AUTO DIFF CONFIRMED Erythrocyte Sedimentation Rate GREATER THAN 140 Sodium Level 139 Potassium Level 3.1 Chloride Level 102 Carbon Dioxide Level 26.9 Anion Gap 10 Blood Urea Nitrogen 5 Creatinine 0.39 Estimat Glomerular Filtration 235 Rate Random Glucose 135 Calcium Level 8.4 C-Reactive Protein 22.90 Date/Time Procedure Status Source Growth 11/14/16 15:11 Aerobic Blood Culture Received Blood Peripheral Pending 11/14/16 15:11 Anaerobic Blood Culture Received Blood Peripheral Pending Result Diagram: 11/15/16 0712 11/15/16 0712 Imaging RADIOLOGY STUDIES/FILMS REVIEWED Upper Extremity CTA 11/14/16 0000 Signed Impressions: Service Date/Time: Monday, November 14, 2016 16:37 - CONCLUSION: Negative CTA of the upper extremity. Flow is seen down to the wrist via the radial artery. Tom Campos MD Head CT 11/14/16 0000 Signed Impressions: Service Date/Time: Monday, November 14, 2016 16:29 - CONCLUSION: No acute intracranial findings. Severely abnormal appearance of the sinuses and nasal cavity David Palmer MD Finger X-Ray 11/14/16 0000 Signed Impressions: Service Date/Time: Monday, November 14, 2016 14:37 - CONCLUSION: Unremarkable examination of the left second finger. David aPlmer MD Assessment and Plan Assessment and Plan IMPRESSION Embolic lesions to both hands and R foot, etiology? - endocarditis can do this but if he is throwing this much emboli one would expect to see more S/Sxs of sepsis, like more acutely ill appearing, fevers; ? valvular heart disease - ?autoimmune, vasculitis Asthma and sinusitis, ?CVD, Osei's Known DM RECOMMENDATION Agree with echo Hold off on Abx Repeat BC Work-up for vasculitis, autoimmune disorder - will get KRYSTIAN, RF, ANCA Follow C/S Monitor progress I will follow along with you Thank you for this consultation Discussed Condition With Explained plan to the patient Maggie Norman MD Nov 15, 2016 09:15
--- NOTE | 2016-11-15 09:55 | EKG ---
Date Performed: 11/14/2016 Time Performed: 17:17:10 PTAGE: 51 years EKG: SINUS TACHYCARDIA BORDERLINE LEFT AXIS DEVIATION RIGHT BUNDLE BRANCH BLOCK ABNORMAL ECG NO PREVIOUS TRACING DOCTOR: Tano Yates Interpretating Date/Time 11/15/2016 09:53:59
--- NOTE | 2016-11-15 10:36 | EC ---
Study Study Date:11/15/2016 STUDY CONCLUSIONS SUMMARY - Procedure narrative: Transthoracic echocardiography. Image quality was good. Scanning was performed from the parasternal, apical, and subcostal acoustic windows. - Left ventricle: The cavity size was normal. Wall thickness was normal. Systolic function was normal. The estimated ejection fraction was in the range of 60% to 65%. Wall motion was normal; there were no regional wall motion abnormalities. - Tricuspid valve: Trace regurgitation. If LV function is below 40, please consider prescribing an ACEI or ARB or document rationale for non-use. PROCEDURE DATA STUDY STATUS: Elective. Procedure: Transthoracic echocardiography. Image quality was good. Scanning was performed from the parasternal, apical, and subcostal acoustic windows. Study completion: The patient tolerated the procedure well. Transthoracic echocardiography. M-mode, complete 2D, complete spectral Doppler, and color Doppler. Patient status: Inpatient. CARDIAC ANATOMY LEFT VENTRICLE: The cavity size was normal. Wall thickness was normal. Systolic function was normal. The estimated ejection fraction was in the range of 60% to 65%. Wall motion was normal; there were no regional wall motion abnormalities. AORTIC VALVE: Trileaflet; normal thickness leaflets. Doppler: Transvalvular velocity was within the normal range. There was no stenosis. No regurgitation. Peak gradient: 13mm Hg (S). AORTA: Aortic root: The aortic root was normal in size. MITRAL VALVE: Structurally normal valve. Doppler: Transvalvular velocity was within the normal range. There was no evidence for stenosis. No regurgitation. LEFT ATRIUM: The atrium was normal in size. RIGHT VENTRICLE: The cavity size was normal. Wall thickness was normal. PULMONIC VALVE: Doppler: Transvalvular velocity was within the normal range. There was no evidence for stenosis. No regurgitation. TRICUSPID VALVE: Structurally normal valve. Doppler: Transvalvular velocity was within the normal range. Trace regurgitation. PULMONARY ARTERY: The main pulmonary artery was normal-sized. Systolic pressure was within the normal range. RIGHT ATRIUM: The atrium was normal in size. PERICARDIUM: There was no pericardial effusion. SYSTEMIC VEINS: Inferior vena cava: The vessel was normal in size. BASIC MEASUREMENTS ADULT NORMAL Left ventricle LV internal dimension, ED, chordal level, 45.9 mm 43-52 PLAX LV internal dimension, ES, chordal level, 36 mm 23-38 PLAX Fractional shortening, chordal level, PLAX *22 % >29 LV posterior wall thickness, ED 6.44 mm IVS/LVPW ratio, ED *1.5 <1.3 Ventricular septum Septal thickness, ED 9.66 mm Aortic valve Leaflet separation 21 mm 15-26 Left atrium Anterior-posterior dimension 32 mm Right ventricle RV internal dimension, ED, PLAX 20.4 mm 19-38 BASIC MEASUREMENTS ADULT NORMAL Aortic valve Leaflet separation 21 mm 15-26 Aorta Root diameter, ED 33 mm 20-37 DOPPLER MEASUREMENTS ADULT NORMAL Aortic valve Peak velocity, S 178 cm/s Peak gradient, S 13 mm Hg Mitral valve Peak E-wave velocity 68.1 cm/s Peak A-wave velocity 88.4 cm/s Peak E/A ratio 0.8 Tricuspid valve Regurgitant peak velocity 149 cm/s Peak RV-RA gradient, S 9 mm Hg Maximal regurgitant velocity 149 cm/s LEGEND: Mean values are shown as u=mean value. Asterisk (*) gaitan values outside specified normal range. Prepared and signed by Babatunde Bardales [id number]
--- NOTE | 2016-11-15 10:57 | HHI.PR ---
Subjective Remarks Patient laying in bed with at the bedside He told me he had sinus surgeries and that's why his nose bridge is collapsed, however he denied having sinusitis problem of his life I discussed with the hand surgeon who requested to have the vascular surgeon seeing the patient prior to addressing further recommendation, I also discussed with him the option of sending patient to a [facility] like [facility], I will consult case monitor to start the process home especially that we do not have a critical care registered nurse on board Objective Vitals Vital Signs Date Time Temp Pulse Resp B/P Pulse Ox O2 Delivery O2 Flow Rate FiO2 11/15/16 04:00 99.8 96 16 119/66 94 11/15/16 02:07 86 11/15/16 00:00 98.5 101 18 117/70 92 11/14/16 20:40 99.0 95 18 130/69 93 11/14/16 20:22 98.4 102 16 120/71 98 11/14/16 19:54 98.5 100 16 122/70 98 Room Air 11/14/16 17:19 98.2 100 18 124/67 99 Room Air 11/14/16 15:07 17 11/14/16 14:56 18 123/77 98 Room Air 11/14/16 13:46 17 11/14/16 13:35 103 17 132/78 97 Room Air 11/14/16 13:25 18 97 Room Air 11/14/16 13:25 97 Room Air 11/14/16 13:09 106 18 97 Room Air 11/14/16 13:01 98.6 127 18 114/85 94 I/O 11/14/16 11/14/16 11/14/16 11/15/16 11/15/16 11/15/16 07:00 15:00 23:00 07:00 15:00 23:00 Intake Total 1229 ml Balance 1229 ml Intake Oral 240 ml IV Total 989 ml # Voids 1 # Bowel Movements 0 Result Diagram: 11/15/1612 11/15/1612 Imaging Last Impressions Upper Extremity CTA 11/14/16 0000 Signed Impressions: Service Date/Time: Monday, November 14, 2016 16:37 - CONCLUSION: Negative CTA of the upper extremity. Flow is seen down to the wrist via the radial artery. Tom Campos MD Head CT 11/14/16 0000 Signed Impressions: Service Date/Time: Monday, November 14, 2016 16:29 - CONCLUSION: No acute intracranial findings. Severely abnormal appearance of the sinuses and nasal cavity David Palmer MD Finger X-Ray 11/14/16 0000 Signed Impressions: Service Date/Time: Monday, November 14, 2016 14:37 - CONCLUSION: Unremarkable examination of the left second finger. David Palmer MD Objective Remarks GENERAL: This is a well-nourished, well-developed patient, in no apparent distress. SKIN: Multiple petechial skin lesion on the sole of the right and left feet more on the right, left tip index gangrene, and right gangrenous lesion which is less than the left HEAD: Collapsed nose bridge due to sinus surgery, Normocephalic. EYES: Pupils equal round and reactive. Extraocular motions intact. No scleral icterus. ENT: Nose without bleeding, or drainage, Airway patent. NECK: Trachea midline. Supple CARDIOVASCULAR: Regular rate and rhythm without murmurs, gallops, or rubs. RESPIRATORY: Fair air entry bilaterally. No wheezes, rales, or rhonchi. GASTROINTESTINAL: Abdomen soft, non-tender, nondistended. Positive bowel sounds MUSCULOSKELETAL: Extremities without clubbing, cyanosis, or edema. Pedal pulses appreciated NEUROLOGICAL: Awake and alert. Moves all extremity. Normal speech.no focal neurological deficit A/P Problem List: (1) Gangrene of finger ICD Code: I96 Status: Acute Assessment and Plan -Bilateral hands and right foot embolic lesion rule out endocarditis versus autoimmune vasculitis -Left finger index discoloration continue pain control. CTA of the left upper extremity as above, hand surgeon consulted as well as vascular surgery d/w hand surgeryDr.E in length , he requested to notify vascular surgery that he did see the patient and he still would like to have them evaluate the patient ; he also may consider transferring patient to [facility] started on Amlodipine. Status post IV antibiotics- ID consulted> recommended stopping antibiotic in pursuing autoimmune workup With his history of sinusitis need to rule out possibility of underlying vasculitis such as Jc , Will need a rheumatology consultation, unfortunately no critical care registered nurse available on board, we will KRYSTIAN, RF, ANCA pending , significant increase ESR was 49, CRP 22, if ANCA + we may consider CT chest and PFT to look for nodules or increase DLCO, and later on tissue bx -[place] palsy- CT head negative-pending neurology consult -diabetes mellitus; accu-check with SSI -DVT prophylaxis with SCD's Time spent 60 minutes addendum : i received a call from the hand surgeon asking to start pt on nitro patch to be placed on his left palm Jabier Conroy MD Nov 15, 2016 10:57
[2016-11-15 12:23] LABS: RHEUMATOID FACTOR TRIGGER LESS THAN 10.0 IU/ML (0.0-14.9)
--- NOTE | 2016-11-15 15:04 | PD.VS.CON ---
History of Present Illness Chief Complaint: Left 2nd, 3rd digit fingers with discoloration times 2- 3 weeks Consult Requested by: Dr. Conroy History of Present Illness As noted Mr. Mercado is a 51 y/o male with history of diabetes who presented to ER with pain and discoloration of the left index finger. he says that it started as a ' bruise' about three weeks ago. however it started to get painful and cold about a week ago. he says that he noticed that the first three right fingers started to have some discoloration today. no history of similar episodes in the past. during my evaluation I noticed that he wasn't able to open the right eye completely and had some facial droop on the right side. on further questioning he said that he had these symptoms since yesterday. (Acacia Jones) Past/Family/Social History Past Medical History diabetes mellitus murphy's palsy Past Surgical History sinus surgery Social History Denies smoking Denies ETOH (Acacia Jones) Home Medications Reported Medications Ranitidine (Zantac)300 Mg [id number] Mg PO DAILY Ref 0 11/14/16 Albuterol 8.5 GM Inh (Proair Hfa 8.5 GM Inh)90 Mcg/Act Aer1 Puff INH Q4H PRN ( SHORTNESS OF BREATH) #1 INHALER Ref 0 108 mcg/actuation 11/14/16 Glimepiride 1 Mg Tab1 Mg PO DAILY #30 TAB Ref 0 Take with breakfast or first main meal 11/14/16 Metformin 500 Mg [id number] Mg PO BIDPC #60 TAB Ref 0 With meals 11/14/16 Coded Allergies: No Known Allergies (Verified , 11/14/16) Physical Exam Vitals/I&O Date Time Temp Pulse Resp B/P Pulse Ox O2 Delivery O2 Flow Rate FiO2 11/15/16 12:00 98.0 100 20 124/72 96 11/15/16 08:00 99.0 100 20 120/69 94 11/15/16 04:00 99.8 96 16 119/66 94 11/15/16 02:07 86 11/15/16 00:00 98.5 101 18 117/70 92 11/14/16 20:40 99.0 95 18 130/69 93 11/14/16 20:22 98.4 102 16 120/71 98 11/14/16 19:54 98.5 100 16 122/70 98 Room Air 11/14/16 17:19 98.2 100 18 124/67 99 Room Air 11/14/16 15:07 17 11/14/16 14:56 18 123/77 98 Room Air Neuro: Alert and oriented Neck: supple, NO JVD Vascular: Palpable radial pulses noted bilat Extremities: Left index and middle finger discolored at the tips of the fingers (Acacia Jones) Laboratory Tests Test 11/14/16 11/14/16 11/14/16 11/15/16 14:50 18:08 22:20 07:12 Lactic Acid Level 1.7 1.8 Sodium Level 135 139 Potassium Level 3.5 3.1 Chloride Level 97 102 Carbon Dioxide Level 27.9 26.9 Anion Gap 10 10 Blood Urea Nitrogen 7 5 Creatinine 0.57 0.39 Estimat Glomerular Filtration 152 235 Rate Random Glucose 190 135 Calcium Level 8.3 8.4 Urine Color YELLOW Urine Turbidity CLEAR Urine pH 6.5 Urine Specific [place] GREATER THAN 1.050 Urine Protein 30 Urine Glucose (UA) NEG Urine Ketones 80 Urine Occult Blood LARGE Urine Nitrite NEG Urine Bilirubin NEG Urine Urobilinogen 2.0 Urine Leukocyte Esterase NEG Urine RBC 42 Urine WBC 4 Urine Squamous Epithelial <1 Cells Urine Transitional Epithelial <1 Cells Urine Renal Epithelial Cells <1 Urine Bacteria RARE Urine Mucus FEW Microscopic Urinalysis Comment CULT NOT INDICATED White Blood Count 13.9 Red Blood Count 3.78 Hemoglobin 9.3 Hematocrit 29.1 Mean Corpuscular Volume 76.9 Mean Corpuscular Hemoglobin 24.6 Mean Corpuscular Hemoglobin 31.9 Concent Red Cell Distribution Width 15.5 Platelet Count 432 Mean Platelet Volume 6.5 Neutrophils (%) (Auto) 79.5 Lymphocytes (%) (Auto) 9.6 Monocytes (%) (Auto) 9.2 Eosinophils (%) (Auto) 1.4 Basophils (%) (Auto) 0.3 Neutrophils # (Auto) 11.1 Lymphocytes # (Auto) 1.3 Monocytes # (Auto) 1.3 Eosinophils # (Auto) 0.2 Basophils # (Auto) 0.0 CBC Comment AUTO DIFF Differential Comment AUTO DIFF CONFIRMED Erythrocyte Sedimentation Rate GREATER THAN 140 C-Reactive Protein 22.90 Test 11/15/16 11:34 Rheumatoid Factor Screen NEGATIVE Rheumatoid Factor Titer Date/Time Procedure Status Source Growth 11/15/16 11:40 Aerobic Blood Culture Received Blood Peripheral Pending 11/15/16 11:40 Anaerobic Blood Culture Received Blood Peripheral Pending 11/14/16 15:11 Aerobic Blood Culture - Preliminary Resulted Blood Peripheral NO GROWTH IN 1 DAY 11/14/16 15:11 Anaerobic Blood Culture - Preliminary Resulted Blood Peripheral NO GROWTH IN 1 DAY Last 48 hours Impressions Upper Extremity CTA 11/14/16 0000 Signed Impressions: Service Date/Time: Monday, November 14, 2016 16:37 - CONCLUSION: Negative CTA of the upper extremity. Flow is seen down to the wrist via the radial artery. Tom Campos MD Head CT 11/14/16 0000 Signed Impressions: Service Date/Time: Monday, November 14, 2016 16:29 - CONCLUSION: No acute intracranial findings. Severely abnormal appearance of the sinuses and nasal cavity David Palmer MD Finger X-Ray 11/14/16 0000 Signed Impressions: Service Date/Time: Monday, November 14, 2016 14:37 - CONCLUSION: Unremarkable examination of the left second finger. David Palmer MD (Acacia Jones) Assessment and Plan Assessment: (1) Gangrene of finger Status: Acute Plan Plan Ordered CTA Carotids Consult Rheumatology Pending results will continue to follow Acacia WOODY [facility]/[place] [phone] (Acacia Jones) Plan Patient 51 year old with distal index finger ischemia bilaterally. Bounding radial pulses and palpable ulnar pulses as well. left index great finger more impressive ischemic changes. CTA of arm shows intact blood vessels but does not look at great vessel origins. Need a CTA of great vessel origins off the arch of the aorta. With increased CRP and ESR with leukocytosis may be a vasculitis vs septic atheremboli from a cardiac source? Will rule out proximal vascular lesion. Will follow. Ricardo Hassan DO, FACS [employer]. (Ricardo Hassan DO) Acacia Jones Nov 15, 2016 15:04 Ricardo Hassan DO Nov 15, 2016 15:16
[2016-11-15] MEDS ORDERED: NITROGLYCERIN 0.2 MG/HR PATCH T-DERMAL ONE (17:00)
[2016-11-15] MEDS ORDERED: IOHEXOL 350 MG/ML 10 ML VIAL (for RAD DIAG) IV ONE (17:01)
--- NOTE | 2016-11-15 17:56 | HHI.PR ---
Subjective Remarks pain symptoms little better keeping the hands warm started on calcium channel blockers Objective Vital Signs Date Time Temp Pulse Resp B/P Pulse Ox O2 Delivery O2 Flow Rate FiO2 11/15/16 12:00 98.0 100 20 124/72 96 11/15/16 08:00 102 11/15/16 08:00 99.0 100 20 120/69 94 11/15/16 04:00 99.8 96 16 119/66 94 11/15/16 02:07 86 11/15/16 00:00 98.5 101 18 117/70 92 11/14/16 20:40 99.0 95 18 130/69 93 11/14/16 20:22 98.4 102 16 120/71 98 11/14/16 19:54 98.5 100 16 122/70 98 Room Air I/O 11/14/16 11/14/16 11/14/16 11/15/16 11/15/16 11/15/16 07:00 15:00 23:00 07:00 15:00 23:00 Intake Total 1229 ml Balance 1229 ml Intake Oral 240 ml IV Total 989 ml # Voids 1 # Bowel Movements 0 examination of the both hand: gangrene involving the left index finger tip purplish discoloration and pale looking fingers with decreased capillary refill numbness of the finger tips noted palpable radial pulse, ulnar artery not palpable digital arteries not palpable Laboratory Tests Test 11/14/16 11/14/16 11/14/16 11/15/16 13:30 18:08 22:20 07:12 White Blood Count 22.5 TH/MM3 13.9 TH/MM3 (4.0-11.0) (4.0-11.0) Red Blood Count 4.25 MIL/MM3 3.78 MIL/MM3 (4.50-5.90) (4.50-5.90) Hemoglobin 10.5 GM/DL 9.3 GM/DL (13.0-17.0) (13.0-17.0) Hematocrit 33.3 % 29.1 % (39.0-51.0) (39.0-51.0) Mean Corpuscular Volume 78.4 FL 76.9 FL (80.0-100.0) (80.0-100.0) Mean Corpuscular Hemoglobin 24.6 PG 24.6 PG (27.0-34.0) (27.0-34.0) Mean Corpuscular Hemoglobin 31.4 % 31.9 % Concent (32.0-36.0) (32.0-36.0) Platelet Count 504 TH/MM3 (150-450) Neutrophils (%) (Auto) 88.3 % 79.5 % (16.0-70.0) (16.0-70.0) Lymphocytes (%) (Auto) 4.7 % (9.0-44.0) Neutrophils # (Auto) 19.9 TH/MM3 11.1 TH/MM3 (1.8-7.7) (1.8-7.7) Monocytes # (Auto) 1.5 TH/MM3 1.3 TH/MM3 (0-0.9) (0-0.9) Platelet Estimate HIGH (NORMAL) Prothrombin Time 14.6 SEC (9.8-11.6) Activated Partial 32.2 SEC Thromboplast Time (24.3-30.1) Sodium Level 133 MEQ/L 135 MEQ/L (136-145) (136-145) Potassium Level 3.1 MEQ/L 3.1 MEQ/L (3.5-5.1) (3.5-5.1) Chloride Level 91 MEQ/L 97 MEQ/L (98-107) (98-107) Anion Gap 19 MEQ/L (5-15) Random Glucose 223 MG/DL 190 MG/DL 135 MG/DL (74-106) (74-106) (74-106) Creatinine 0.57 MG/DL 0.39 MG/DL (0.60-1.30) (0.60-1.30) Calcium Level 8.3 MG/DL 8.4 MG/DL (8.5-10.1) (8.5-10.1) Urine Specific [place] GREATER THAN 1.050 (1.002-1.035) Urine Protein 30 mg/dL (NEG-TRACE) Urine Ketones 80 mg/dL (NEG) Urine Occult Blood LARGE (NEG) Urine RBC 42 /hpf (0-3) Urine Bacteria RARE /hpf (NONE) Urine Mucus FEW /lpf (OCC) Mean Platelet Volume 6.5 FL (7.0-11.0) Monocytes (%) (Auto) 9.2 % (0.0-8.0) Erythrocyte Sedimentation Rate GREATER THAN 140 mm/hr (0-15) Blood Urea Nitrogen 5 MG/DL (7-18) C-Reactive Protein 22.90 MG/DL (0.00-0.30) Result Diagram: 11/15/16 0712 11/15/16 0712 Assessment and Plan Assessment and Plan 51 year old male with diabetes and ischemic fingers likely vasculitis vs emboli Plan; Palmar arches not visible on CTA with smooth tapering of the ulnar artery from midforearm, weak signals on hand held doppler, bilaterality suggests patient having Raynaud's phenomenon, vasculitis or emboli. Home Improvement Contractor opinion would be helpful continue keeping the hands warm nitro paste application to the palm of the hands and base of the fingers continue calcium channel blockers Seymour Huitron MD Nov 15, 2016 17:56
--- NOTE | 2016-11-15 18:00 | RADRPT ---
EXAM DATE/TIME: 11/15/2016 16:55 [facility] COMPARISON: No previous studies available for comparison. INDICATIONS : Left facial droop, evaluate for occlusion. IV CONTRAST: 73 cc Omnipaque 350 (iohexol) IV RADIATION DOSE: 28.58 CTDIvol (mGy) MEDICAL HISTORY : None SURGICAL HISTORY : None. ENCOUNTER: Initial ACUITY: 2 days PAIN SCALE: 0/10 LOCATION: Bilateral neck Elevated flow velocities and ICA/CCA ratios have been found to correlate with increased degrees of vessel stenosis, calculated as percentage of diameter relative to a normal segment of distal ICA/CCA. TECHNIQUE: Volumetric scanning was performed using a multirow detector CT scanner. The data was post processed with a variety of visualization algorithms including full-volume maximum intensity projection, multip lanar sliding thin-slab reformation, curved-planar reformation, and surface-rendering techniques. Us ing automated exposure control and adjustment of the mA and/or kV according to patient size, radiatio n dose was kept as low as reasonably achievable to obtain optimal diagnostic quality images. FINDINGS: AORTIC ARCH: There is a three-vessel origin of the great vessels from the aorta. No evidence of ostial narrowing. The right innominate artery and left subclavian artery are patent approximately RIGHT CAROTID: The common carotid artery is intact. The carotid bulb has a normal configuration without ulceration o r narrowing. The internal carotid artery lumen is smooth without stenosis. The external carotid danika ry is intact. LEFT CAROTID: The common carotid artery is intact. The carotid bulb has a normal configuration without ulceration or narrowing. The internal carotid artery lumen is smooth without stenosis. The external carotid ar lea is intact. VERTEBRALS: The vertebral arteries have a symmetric diameter. No stenotic lesions are seen. CONCLUSION: Negative for hemodynamically significant stenosis. There is strong clinical concern of an ulcerated plaque in the subclavian and her around the clavicle catheter angiography may be of benefit.. Valentin Monzon MD FACR on November 15, 2016 at 17:58 Board Certified Radiologist. This report was verified electronically.
[2016-11-15] MEDS: NITROGLYCERIN 2% OINT 1 GM PACKET TOPICAL SCH (18:21)
[2016-11-15 20:09] LABS: BICARBONATE 28.4 MEQ/L (21.0-32.0)
[2016-11-15] MEDS: SODIUM CHLORIDE 0.9% FLUSH 10 ML FLUSH IV FLUSH SCH (21:35)
[2016-11-16] VITALS (9 sets, daily range): BP systolic 127–140; BP diastolic 62–79; PULSE 95–119; RESP 17–20; TEMP 98–99.3; O2SAT 93–98
[2016-11-16] MEDS: HYDROmorphone HCL PF 1 MG/ML VIAL IV PUSH PRN ×6 (00:23→21:29)
[2016-11-16] MEDS: SODIUM CHLOR 0.9% 1000 ML INJ 1,000 ML IV SCH ×3 (02:00→21:19)
[2016-11-16] MEDS: INSULIN ASPART SUPPLEMENTAL SCALE SQ SCH ×4 (05:59→21:00)
[2016-11-16 06:43] LABS: INDIRECT BILIRUBIN 0.3 MG/DL (0.0-0.8); TOTAL BILIRUBIN ADULT 0.4 MG/DL (0.2-1.0)
--- NOTE | 2016-11-16 06:59 | MB ---
cc: MANUEL EPSTEIN MD DATE OF CONSULTATION 11/15/2016 REASON FOR CONSULTATION Akins's palsy HISTORY OF PRESENT ILLNESS Mr. Mercado is a 41-year-old male with past medical history of diabetes mellitus who presented to the emergency room at [facility] for pain and discoloration of his left index finger that had started about three weeks ago. The patient also states that over the last three days he noticed that his right eye started tearing and there was drooling from the right angle of the mouth. The patient denies any headache, numbness of the face, blurred vision, double vision, difficulty swallowing or chewing. He states that there is some slurring of speech that is intermittent. He denies any earache. He states that he has lost sense of smell, but this has been ongoing for four weeks and he thinks it is related to chronic sinusitis and he has diminished hearing on the right side which also relates to chronic sinusitis. These two symptoms have been ongoing for a few weeks. The patient denies upper or lower extremity weakness. REVIEW OF SYSTEMS A 12-point review of systems is negative except for what is stated in the HPI. PAST MEDICAL HISTORY 1. Diabetes mellitus 2. Akins's palsy 3. Peripheral vascular disease PAST SURGICAL HISTORY Sinus surgery MEDICATIONS 1. Zantac 2. ProAir 3. Glimepiride 4. Metformin ALLERGIES No known allergies. FAMILY HISTORY Noncontributory SOCIAL HISTORY Denies smoking cigarettes or drinking alcohol or use of illicit drugs. PHYSICAL EXAMINATION GENERAL: Awake, alert, oriented, good historian not in acute distress HEENT: Atraumatic, normocephalic. Right sided facial weakness. Intact hearing. Intact vision. NECK: Supple. Trachea in the midline. No signs of meningeal irritation. CARDIOVASCULAR: Regular rate and rhythm. RESPIRATORY: Clear to auscultation. No wheezes. MUSCULOSKELETAL: Extremities with bilateral index finger black discoloration more predominant on the left side. NEUROLOGIC EXAMINATION: Awake, alert, oriented to time, person and place. Hoarseness of voice/the patient states that this has been a chronic change in voice due to sinuses, intact speech content, intact external ocular motility. Pupils are 3 mm bilateral symmetrical reacting to light. Right facial weakness of lower motor neuron lesion/unable to elevate right eye globe, unable to tightly close the eye, unable to completely tightly purse the right corner of the mouth, unable to hold air on the right cheek and decreased bleeding rate on the right side of the face. No skin rashes on the side of the face. Upper and lower extremities 5/5. No abnormal movement, normal tone. Reflexes 2+ bilateral symmetrical upper extremities with 1+ bilateral ankles. Plantar's right upgoing toe, left equivocal. [id number], [id number] are bilateral symmetrical and normal. Sensation is intact bilateral symmetrical except for gloves and stockings distribution to pain and temperature. PSYCHOLOGICAL: Normal mood and affect. Normal behavior. No hallucination. LABORATORY DATA White blood cells 22.5, hemoglobin 10.5, MCV 78.4, platelets 504. Sodium 133, potassium 3.1, anion gap 90, BUN 8, creatinine 0.64, lactic acid 1.7, sed rate greater than 140, C-reactive protein 22.9, INR 1.3. DIAGNOSTICS IMAGING -Head CT scan without contrast with no acute intracranial findings, severely abnormal appearance of the sinuses and nasal cavity. - CTA was negative for hemodynamically significant stenosis, but there is strong clinical concern of an ulcerated plaque in the subclavian around the clavicle catheter. Angiography may be on benefit as per the radiology recommendation. DIAGNOSTIC IMPRESSION 1. Right lower motor neuron facial palsy. 2. Given the abnormal taste, abnormal hearing and change in the tone of voice with a right lower motor neuron facial palsy and long tract signs of upgoing toe on the right side with elevated markers of infection, I want to rule out the possibility of inflammatory/vasculitic infectious etiology, basal meningitis or a CP angle lesion. PLAN 1. Neuro checks q. four hourly. 2. MRI brain with and without contrast. 3. Cardiac echo to rule out cardiac source for possible septic emboli. 4. DVT prophylaxis. 5. Eye patch especially during the night. 6. Eye ointment/drops to prevent conjunctivitis. Thank you for opportunity to participate in the care of the patient. MD CHYNA Grossman/CARMENZA /10:41 PM /6:30 AM [facility]IB[facility]
[2016-11-16] MEDS ORDERED: LORazepam 2 MG/ML VIAL IV PRN (08:15)
[2016-11-16] MEDS: amLODIPine BESYLATE 5 MG TAB PO SCH (08:22)
[2016-11-16] MEDS: FAMOTIDINE 20 MG TAB PO SCH ×2 (08:22→21:15)
[2016-11-16] MEDS: SODIUM CHLORIDE 0.9% FLUSH 10 ML FLUSH IV FLUSH SCH ×2 (08:24→21:16)
[2016-11-16] MEDS: NITROGLYCERIN 2% OINT 1 GM PACKET TOPICAL SCH (08:32)
[2016-11-16] MEDS ORDERED: PHARMACY ORDERED LAB ONE (09:45)
--- NOTE | 2016-11-16 10:40 | HHI.DS ---
Discharge Summary Admission Date Nov 14, 2016 at 18:32 Discharge Date: Nov 16, 2016 Admitting Diagnosis sepsis, finger gangrene (1) Gangrene of finger ICD Code: I96 Diagnosis: Principal (2) right lower motor neuron palsy Diagnosis: Principal Procedures none Brief History - From Admission patient is a 51 y/o male with history of diabetes who presented to ER with pain and discoloration of the left index finger. he says that it started as a ' bruise' about three weeks ago. however it started to get painful and cold about a week ago. he says that he noticed that the first three right fingers started to have some discoloration today. no history of similar episodes in the past. during my evaluation I noticed that he wasn't able to open the right eye completely and had some facial droop on the right side. on further questioning he said that he had these symptoms since yesterday. CBC/BMP: 11/15/16 0712 11/15/161923 Significant Findings Laboratory Tests Test 11/14/16 11/14/16 11/14/16 11/15/16 13:30 18:08 22:20 07:12 White Blood Count 22.5 TH/MM3 13.9 TH/MM3 (4.0-11.0) (4.0-11.0) Red Blood Count 4.25 MIL/MM3 3.78 MIL/MM3 (4.50-5.90) (4.50-5.90) Hemoglobin 10.5 GM/DL 9.3 GM/DL (13.0-17.0) (13.0-17.0) Hematocrit 33.3 % 29.1 % (39.0-51.0) (39.0-51.0) Mean Corpuscular Volume 78.4 FL 76.9 FL (80.0-100.0) (80.0-100.0) Mean Corpuscular Hemoglobin 24.6 PG 24.6 PG (27.0-34.0) (27.0-34.0) Mean Corpuscular Hemoglobin 31.4 % 31.9 % Concent (32.0-36.0) (32.0-36.0) Platelet Count 504 TH/MM3 (150-450) Neutrophils (%) (Auto) 88.3 % 79.5 % (16.0-70.0) (16.0-70.0) Lymphocytes (%) (Auto) 4.7 % (9.0-44.0) Neutrophils # (Auto) 19.9 TH/MM3 11.1 TH/MM3 (1.8-7.7) (1.8-7.7) Monocytes # (Auto) 1.5 TH/MM3 1.3 TH/MM3 (0-0.9) (0-0.9) Platelet Estimate HIGH (NORMAL) Prothrombin Time 14.6 SEC (9.8-11.6) Activated Partial 32.2 SEC Thromboplast Time (24.3-30.1) Sodium Level 133 MEQ/L 135 MEQ/L (136-145) (136-145) Potassium Level 3.1 MEQ/L 3.1 MEQ/L (3.5-5.1) (3.5-5.1) Chloride Level 91 MEQ/L 97 MEQ/L (98-107) (98-107) Anion Gap 19 MEQ/L (5-15) Random Glucose 223 MG/DL 190 MG/DL 135 MG/DL (74-106) (74-106) (74-106) Creatinine 0.57 MG/DL 0.39 MG/DL (0.60-1.30) (0.60-1.30) Calcium Level 8.3 MG/DL 8.4 MG/DL (8.5-10.1) (8.5-10.1) Urine Specific [place] GREATER THAN 1.050 (1.002-1.035) Urine Protein 30 mg/dL (NEG-TRACE) Urine Ketones 80 mg/dL (NEG) Urine Occult Blood LARGE (NEG) Urine RBC 42 /hpf (0-3) Urine Bacteria RARE /hpf (NONE) Urine Mucus FEW /lpf (OCC) Mean Platelet Volume 6.5 FL (7.0-11.0) Monocytes (%) (Auto) 9.2 % (0.0-8.0) Erythrocyte Sedimentation Rate GREATER THAN 140 mm/hr (0-15) Blood Urea Nitrogen 5 MG/DL (7-18) C-Reactive Protein 22.90 MG/DL (0.00-0.30) Test 11/15/16 11/16/16 19:24 05:31 Potassium Level 3.0 MEQ/L (3.5-5.1) Blood Urea Nitrogen 3 MG/DL (7-18) Creatinine 0.43 MG/DL (0.60-1.30) Random Glucose 147 MG/DL (74-106) Calcium Level 7.9 MG/DL (8.5-10.1) Aspartate Amino Transf 11 U/L (15-37) (AST/SGOT) Total Protein 5.7 GM/DL (6.4-8.2) Albumin 1.5 GM/DL (3.4-5.0) Imaging Last Impressions Neck CTA 11/15/16 0000 Signed Impressions: Service Date/Time: Tuesday, November 15, 2016 16:55 - CONCLUSION: Negative for hemodynamically significant stenosis. There is strong clinical concern of an ulcerated plaque in the subclavian and her around the clavicle catheter angiography may be of benefit.. Valentin Monzon MD FACR Upper Extremity CTA 11/14/16 0000 Signed Impressions: Service Date/Time: Monday, November 14, 2016 16:37 - CONCLUSION: Negative CTA of the upper extremity. Flow is seen down to the wrist via the radial artery. Tom Campos MD Head CT 11/14/16 0000 Signed Impressions: Service Date/Time: Monday, November 14, 2016 16:29 - CONCLUSION: No acute intracranial findings. Severely abnormal appearance of the sinuses and nasal cavity David Palmer MD Finger X-Ray 11/14/16 0000 Signed Impressions: Service Date/Time: Monday, November 14, 2016 14:37 - CONCLUSION: Unremarkable examination of the left second finger. David Palmer MD PE at Discharge GENERAL: This is a well-nourished, well-developed patient, in no apparent distress. SKIN: Multiple petechial skin lesion on the sole of the right and left feet more on the right, left tip index finger gangrene, and right fingertips with multiple discoloration this has worsened. HEAD: Collapsed nose bridge due to sinus surgery, Normocephalic. EYES: Pupils equal round and reactive. Extraocular motions intact. No scleral icterus. ENT: Nose without bleeding, or drainage, Airway patent. NECK: Trachea midline. Supple CARDIOVASCULAR: Regular rate and rhythm without murmurs, gallops, or rubs. RESPIRATORY: Fair air entry bilaterally. No wheezes, rales, or rhonchi. GASTROINTESTINAL: Abdomen soft, non-tender, nondistended. Positive bowel sounds MUSCULOSKELETAL: Extremities without clubbing, cyanosis, or edema. Pedal pulses appreciated NEUROLOGICAL: Awake and alert. Moves all extremity. Normal speech.no focal neurological deficit Pt update on day of discharge Follow-up for ischemic fingers. Patient stated that ischemia has worsened. His notice increased discoloration on his right fingertips. Denies any fevers or chills. Denying visual changes or focal neurological deficits. He remains afebrile. Hospital Course Patient presented with bilateral hand and right foot with ischemic changes left index finger being severe. Patient was treated initially empirically for septic embolic disease with IV antibiotics and infectious disease was consulted. Since patient did not display any symptoms of sepsis and was afebrile per infectious disease very highly unlikely that this is an septic emboli. Antibiotics was discontinued and he remained afebrile. Hand surgeon was also consulted in which they requested vascular surgeon to be consulted and also recommending possible transfer to [facility] for rheumatology consult. Patient was put on amlodipine and nitroglycerin which did not help with symptoms. He also had CTA of the left upper extremity which was negative, x-ray of the hand which was also negative. Initial autoimmune workup was obtained which all were negative the moment. CRP was elevated at 22.9. Vascular surgeon also consulted and recommend encyclopedia research worker consultation. During hospitalization patient was diagnosed with a possible Akins's palsy so neurologist was consulted. Patient had no focal neurological deficit. CT scan of the head was done which was negative. Per neurologist he wanted to obtain a MRI of the brain. Apply eye patch during the night along with eye ointment at night. An echo was done which was negative. I d/w Dr. Ann hospitalist at [facility] in regards to transfer. She asked for urine drug screen to be obtain for the transfer and accepted the patient. And medically stable at the time of transfer. Pt Condition on Discharge: Stable Discharge Disposition: Disch to Another Hospital Discharge Time: > 30 minutes Discharge Instructions DIET: Follow Instructions for: Diabetic Diet Activities you can perform: Regular-No Restrictions New Medications: Amlodipine (Norvasc) 5 Mg Tab 5 MG PO DAILY questionable raynauds #30 Ref 0 TAB Nitroglycerin Topical (Nitro-Bid Topical) 2 % Oint [address] on palm of hands questionable raynauds #1 Ref 0 TUBE Continued Medications: Albuterol 8.5 GM Inh (Proair Hfa 8.5 GM Inh) 90 Mcg/Act Aer 1 PUFF INH Q4H 108 mcg/actuation PRN SHORTNESS OF BREATH #1 Ref 0 INHALER Glimepiride (Glimepiride) 1 Mg Tab 1 MG PO DAILY Take with breakfast or first main meal Blood Sugar Management #30 Ref 0 TAB Metformin (Metformin) 500 Mg Tab 500 MG PO BIDPC With meals Blood Sugar Management #60 Ref 0 TAB Ranitidine (Zantac) 300 Mg Tab 300 MG PO DAILY Ref 0 TAB Danna Juarez MD Nov 16, 2016 10:40
[2016-11-16] MEDS ORDERED: NITR2OIN TOPICAL (10:53)
[2016-11-16] MEDS ORDERED: AMLO5 PO (10:53)
[2016-11-16] MEDS ORDERED: GADODIAMIDE PF 287 MG/ML 20 ML VIAL (for RAD MRI) IV ONE (11:16)
--- NOTE | 2016-11-16 11:58 | RADRPT ---
EXAM DATE/TIME: 11/16/2016 10:55 [facility] COMPARISON: No previous studies available for comparison. INDICATIONS : Akins's palsy. CONTRAST: 20 cc Omniscan (gadodiamide) IV MEDICAL HISTORY : Diabetes mellitus type 2. SURGICAL HISTORY : Sinus surgery. Cyst removal. ENCOUNTER: Subsequent ACUITY: 2 day PAIN SCORE: 0/10 LOCATION: head. TECHNIQUE: Multiplanar, multisequence MRI of the brain was performed both prior to and following the administrat ion of paramagnetic contrast. FINDINGS: CEREBRUM: The ventricles are normal for age. No evidence of midline shift, mass lesion, hemorrhage or acute in farction. No extraaxial fluid collections are seen. The pituitary gland and suprasellar cistern are normal in configuration. WHITE MATTER: No significant signal abnormalities are seen in the white matter. POSTERIOR FOSSA: The cerebellum and brainstem are intact. The 4th ventricle is midline. The cerebellopontine angle is unremarkable. The cerebellar tonsils are normal in position. DIFFUSION IMAGING: No focal areas of restricted diffusion are seen. No evidence of acute infarction. EXTRACRANIAL: There is a most complete opacification right maxillary sinus. Small air-fluid level seen in the left maxillary sinus. Mucosal thickening in the right sphenoid sinus and opacification of left sphenoid sinus. Mild callosal thickening in bilateral frontal sinuses. The visualized portions of the orbits are unremarkable. POST-CONTRAST: No abnormal areas of parenchymal or dural enhancement. No evidence of blood-brain barrier breakdown. CONCLUSION: 1. No acute findings the brain. 2. Diffuse pansinus disease. Large air-fluid level in the right maxillary and small air-fluid in the left maxillary sinus. Tom Campos MD on November 16, 2016 at 11:53 Board Certified Radiologist. This report was verified electronically.
--- NOTE | 2016-11-16 13:12 | PD.VS.PN ---
Subjective Subjective/Hospital Course left index finger darker and right index finger improved color. Objective Vitals/I&O Date Time Temp Pulse Resp B/P Pulse Ox O2 Delivery O2 Flow Rate FiO2 11/16/16 08:58 93 Nasal Cannula 3.00 11/16/16 08:00 99.2 98 20 128/63 95 11/16/16 07:41 95 11/16/16 04:00 98.0 104 18 131/62 95 11/16/16 00:00 99.3 97 17 129/66 96 11/15/16 20:59 95 Nasal Cannula 3.00 11/15/16 20:00 99.3 98 18 122/69 95 11/15/16 16:00 98.3 105 22 133/88 95 11/16/16 11/16/16 11/16/16 07:00 15:00 23:00 Intake Total 200 ml Balance 200 ml Physical Exam Palpable radial and ulnar pulses bilaterally. Left index finger dark from nailbed across 1st phalanx right index finger with mild discoloration distally. Laboratory Laboratory Tests Test 11/15/16 11/16/16 19:24 05:31 Sodium Level 137 Potassium Level 3.0 Chloride Level 99 Carbon Dioxide Level 28.4 Anion Gap 10 Blood Urea Nitrogen 3 Creatinine 0.43 Estimat Glomerular Filtration 210 Rate Random Glucose 147 Calcium Level 7.9 Total Bilirubin 0.4 Direct Bilirubin 0.1 Indirect Bilirubin 0.3 Aspartate Amino Transf 11 (AST/SGOT) Alanine Aminotransferase 14 (ALT/SGPT) Alkaline Phosphatase 60 Total Protein 5.7 Albumin 1.5 Date/Time Procedure Status Source Growth 11/15/16 11:40 Aerobic Blood Culture - Preliminary Resulted Blood Peripheral NO GROWTH IN 1 DAY 11/15/16 11:40 Anaerobic Blood Culture - Preliminary Resulted Blood Peripheral NO GROWTH IN 1 DAY Imaging Last 48 hours Impressions Brain MRI 11/16/16 0000 Signed Impressions: Service Date/Time: November 10:55 - CONCLUSION: 1. No acute findings the brain. 2. Diffuse pansinus disease. Large air-fluid level in the right maxillary and small air-fluid in the left maxillary sinus. Tom Campos MD Neck CTA 11/15/16 0000 Signed Impressions: Service Date/Time: Tuesday, November 15, 2016 16:55 - CONCLUSION: Negative for hemodynamically significant stenosis. There is strong clinical concern of an ulcerated plaque in the subclavian and her around the clavicle catheter angiography may be of benefit.. Valentin Monzon MD FACR Assessment and Plan Assessment: (1) Gangrene of finger Status: Acute Plan Patient 51 year old with distal index finger ischemia bilaterally. Bounding radial pulses and palpable ulnar pulses as well. left index great finger more impressive ischemic changes. CTA of arm and great vessels show no aneurysmal changes or flow limiting lesions. No arterial obstructive or aneurysmal process for etiology of finger ischemia. Patient will be following up with rheumatology at [facility]. Consultation appreciated. Ricardo Hassan DO, [facility] Boiler Setter of Vascular Surgery. Ricardo Hassan DO Nov 16, 2016 13:12
[2016-11-16 16:44] LABS: AMPHETAMINE, URINE NEG (NEG); BARBITURATES, URINE NEG (NEG); COCAINE, URINE NEG (NEG)
[2016-11-16] MEDS ORDERED: REMOVE OLD PATCH T-DERMAL SCH (18:00)
--- NOTE | 2016-11-16 18:44 | HHI.PR ---
Subjective Remarks No change in symptoms keeping the hands warm On calcium channel blockers and nitro paste Objective Vital Signs Date Time Temp Pulse Resp B/P Pulse Ox O2 Delivery O2 Flow Rate FiO2 11/16/16 16:00 98.0 119 20 140/75 95 11/16/16 12:00 99.2 98 20 128/63 95 11/16/16 08:58 93 Nasal Cannula 3.00 11/16/16 08:00 99.2 98 20 128/63 95 11/16/16 07:41 95 11/16/16 04:00 98.0 104 18 131/62 95 11/16/16 00:00 99.3 97 17 129/66 96 11/15/16 20:59 95 Nasal Cannula 3.00 11/15/16 20:00 99.3 98 18 122/69 95 I/O 11/15/16 11/15/16 11/15/16 11/16/16 11/16/16 11/16/16 07:00 15:00 23:00 07:00 15:00 23:00 Intake Total 1229 ml 480 ml 480 ml 200 ml 1257 ml Balance 1229 ml 480 ml 480 ml 200 ml 1257 ml Intake Oral 240 ml 480 ml 480 ml 200 ml IV Total 989 ml 1257 ml # Voids 1 1 2 2 # Bowel Movements 0 0 Examination of both hands; gangrenous tip from distal middle phalanx region left index finger purplish/pale/pinkish pulp rest of the fingers finger tips are warm to touch decreased capillary refill of the tips palpable radial arteries Result Diagram: 11/15/16 0712 11/15/16 1924 Assessment and Plan Assessment and Plan 51 year old male with diabetes and ischemic fingers likely vasculitis vs emboli Plan; Finger tips are warm with decreased capillary refill Palmar arches not visible on CTA with smooth tapering of the ulnar artery from midforearm, weak signals on hand held doppler, bilaterality suggests patient having Raynaud's phenomenon, vasculitis or emboli. angiogram of the upper extremity would better delineate the vascular anatomy for possible reconstruction depending on the findings. planning for transfer to [facility] continue keeping the hands warm nitro paste application to the palm of the hands and base of the fingers continue calcium channel blockers Seymour Huitron MD Nov 16, 2016 18:44
[2016-11-17] VITALS (7 sets, daily range): BP systolic 106–150; BP diastolic 59–72; PULSE 89–104; RESP 16–20; TEMP 97.8–100.7; O2SAT 93–98
[2016-11-17] MEDS: HYDROmorphone HCL PF 1 MG/ML VIAL IV PUSH PRN ×5 (01:26→20:33)
[2016-11-17] MEDS: INSULIN ASPART SUPPLEMENTAL SCALE SQ SCH ×4 (06:13→20:32)
[2016-11-17] MEDS: SODIUM CHLORIDE 0.9% FLUSH 10 ML FLUSH IV FLUSH SCH ×2 (09:00→20:33)
[2016-11-17] MEDS: amLODIPine BESYLATE 5 MG TAB PO SCH (09:45)
[2016-11-17] MEDS: NITROGLYCERIN 2% OINT 1 GM PACKET TOPICAL SCH (09:45)
[2016-11-17] MEDS: FAMOTIDINE 20 MG TAB PO SCH ×2 (09:45→20:32)
[2016-11-17] MEDS: SODIUM CHLOR 0.9% 1000 ML INJ 1,000 ML IV SCH ×2 (09:58→17:39)
--- NOTE | 2016-11-17 10:38 | HHI.IDPN ---
Subjective Subjective Remarks Notes reviewed Low grade temps overnight No new complaints Has chronic sinus symptoms Imaging studies reviewed Patient being transferred to [facility] All BC are negative Echo report noted Antibiotics None Lines PIV Past Medical History diabetes mellitus murphy's palsy Asthma, and patient was told it was work-related Past Surgical History Sinus surgery Allergies: Coded Allergies: No Known Allergies (Verified , 11/14/16) Objective . Vital Signs Date Time Temp Pulse Resp B/P Pulse Ox O2 Delivery O2 Flow Rate FiO2 11/17/16 08:00 100.4 101 18 133/72 96 11/17/16 04:00 97.8 104 17 142/67 98 11/17/16 00:01 100.1 104 16 136/63 97 11/16/16 20:40 109 11/16/16 20:00 98.3 106 17 127/79 98 11/16/16 16:00 98.0 119 20 140/75 95 11/16/16 12:00 99.2 98 20 128/63 95 11/16/16 11/16/16 11/17/16 15:00 23:00 07:00 Intake Total 1257 ml 440 ml Output Total 600 ml Balance 1257 ml -160 ml Intake Oral 440 ml IV Total 1257 ml Output Urine Total 600 ml # Voids 4 . Laboratory Tests Test 11/15/16 11/16/16 19:24 05:31 Sodium Level 137 MEQ/L Potassium Level 3.0 MEQ/L Chloride Level 99 MEQ/L Carbon Dioxide Level 28.4 MEQ/L Anion Gap 10 MEQ/L Blood Urea Nitrogen 3 MG/DL Creatinine 0.43 MG/DL Estimat Glomerular Filtration 210 ML/MIN Rate Random Glucose 147 MG/DL Calcium Level 7.9 MG/DL Total Bilirubin 0.4 MG/DL Direct Bilirubin 0.1 MG/DL Indirect Bilirubin 0.3 MG/DL Aspartate Amino Transf 11 U/L (AST/SGOT) Alanine Aminotransferase 14 U/L (ALT/SGPT) Alkaline Phosphatase 60 U/L Total Protein 5.7 GM/DL Albumin 1.5 GM/DL Microbiology Date/Time Procedure Status Source Growth 11/14/16 15:10 Aerobic Blood Culture - Preliminary Resulted Blood Peripheral NO GROWTH IN 2 DAYS 11/14/16 15:10 Anaerobic Blood Culture - Preliminary Resulted Blood Peripheral NO GROWTH IN 2 DAYS 11/14/16 15:11 Aerobic Blood Culture - Preliminary Resulted Blood Peripheral NO GROWTH IN 2 DAYS 11/14/16 15:11 Anaerobic Blood Culture - Preliminary Resulted Blood Peripheral NO GROWTH IN 2 DAYS 11/15/16 11:34 Aerobic Blood Culture - Preliminary Resulted Blood Peripheral NO GROWTH IN 1 DAY 11/15/16 11:34 Anaerobic Blood Culture - Preliminary Resulted Blood Peripheral NO GROWTH IN 1 DAY 11/15/16 11:40 Aerobic Blood Culture - Preliminary Resulted Blood Peripheral NO GROWTH IN 1 DAY 11/15/16 11:40 Anaerobic Blood Culture - Preliminary Resulted Blood Peripheral NO GROWTH IN 1 DAY Imaging Brain MRI 11/16/16 Signed Impressions: Service Date/Time: November 10:55 - CONCLUSION: 1. No acute findings the brain. 2. Diffuse pansinus disease. Large air-fluid level in the right maxillary and small air-fluid in the left maxillary sinus. Tom Campos MD Neck CTA 11/15/16 Signed Impressions: Service Date/Time: Tuesday, November 15, 2016 16:55 - CONCLUSION: Negative for hemodynamically significant stenosis. There is strong clinical concern of an ulcerated plaque in the subclavian and her around the clavicle catheter angiography may be of benefit.. Valentin Monzon MD FACR Upper Extremity CTA 11/14/16 Signed Impressions: Service Date/Time: Monday, November 14, 2016 16:37 - CONCLUSION: Negative CTA of the upper extremity. Flow is seen down to the wrist via the radial artery. Tom Campos MD Head CT 11/14/16 Signed Impressions: Service Date/Time: Monday, November 14, 2016 16:29 - CONCLUSION: No acute intracranial findings. Severely abnormal appearance of the sinuses and nasal cavity David Palmer MD Finger X-Ray 11/14/16 Signed Impressions: Service Date/Time: Monday, November 14, 2016 14:37 - CONCLUSION: Unremarkable examination of the left second finger. David Palmer MD Physical Exam GENERAL: awake and alert, not toxic appearing, not in respiratory distress. SKIN: Cool and dry. Has mottling in R hand, on 2 fingers, color looks darker. Dry gangrene LIF. Lesions on R foot better. HEENT: [place] conjunctivae, no petechia or subconjunctival hemorrhage. No scleral icterus. No injection or drainage. Moist oral mucosa. Troat without erythema, or exudate. Airway patent. NECK: Trachea midline. No JVD or lymphadenopathy. Supple, nontender, no meningeal signs. CARDIOVASCULAR: Regular rate and rhythm without murmurs, gallops, or rubs. Difficult exam due to the diffuse rhonchi. RESPIRATORY: Few scattered rhonchi GASTROINTESTINAL: Abdomen soft, non-tender, nondistended. Bowel sounds are present and normoactive. No hepato-splenomegaly, or palpable masses. No guarding. MUSCULOSKELETAL: Extremities without clubbing, or edema. No joint effusion, or edema noted, has good ROM. No calf tenderness. Findings also as described in the skin exam NEUROLOGICAL: Awake and alert. Has decreased nasolabial fold on R, not closing R eye, not raising R eyebrow. Five out of 5 muscle strength in all muscle groups. Normal speech. PSYCH: Calm and cooperative LINE: PIV with no evidence of infection Assessment & Plan Remarks IMPRESSION Embolic lesions to both hands and R foot, etiology? - endocarditis can do this but if he is throwing this much emboli one would expect to see more S/Sxs of sepsis, like more acutely ill appearing, fevers; ? valvular heart disease - ?autoimmune, vasculitis Sinusituis Low grade temps Asthma and sinusitis, ?CVD, Osei's Known DM RECOMMENDATION Repeat BC Rocephin for sinuses Work-up for vasculitis, autoimmune disorder Follow C/S Monitor progress Being transferred to [facility] D/W Dr Juarez Patient had a lot of questions and I answered them to his satisfaction Maggie Norman MD Nov 17, 2016 10:38
--- NOTE | 2016-11-17 11:16 | HHI.PR ---
Objective Vitals Vital Signs Date Time Temp Pulse Resp B/P Pulse Ox O2 Delivery O2 Flow Rate FiO2 11/17/16 08:00 89 11/17/16 08:00 100.4 101 18 133/72 96 11/17/16 04:00 97.8 104 17 142/67 98 11/17/16 00:01 100.1 104 16 136/63 97 11/16/16 20:40 109 11/16/16 20:00 98.3 106 17 127/79 98 11/16/16 16:00 98.0 119 20 140/75 95 11/16/16 12:00 99.2 98 20 128/63 95 I/O 11/16/16 11/16/16 11/16/16 11/17/16 11/17/16 11/17/16 07:00 15:00 23:00 07:00 15:00 23:00 Intake Total 200 ml 1257 ml 440 ml Output Total 600 ml Balance 200 ml 1257 ml -160 ml Intake Oral 200 ml 440 ml IV Total 1257 ml Output Urine Total 600 ml # Voids 2 4 Result Diagram: 11/15/16 0712 11/15/161923 Objective Remarks GENERAL: This is a well-nourished, well-developed patient, in no apparent distress. SKIN: Multiple petechial skin lesion on the sole of the right and left feet more on the right, left tip index finger gangrene, and right fingertips with multiple discoloration this has worsened. HEAD: Collapsed nose bridge due to sinus surgery, Normocephalic. EYES: Pupils equal round and reactive. Extraocular motions intact. No scleral icterus. ENT: Nose without bleeding, or drainage, Airway patent. NECK: Trachea midline. Supple CARDIOVASCULAR: Regular rate and rhythm without murmurs, gallops, or rubs. RESPIRATORY: Fair air entry bilaterally. No wheezes, rales, or rhonchi. GASTROINTESTINAL: Abdomen soft, non-tender, nondistended. Positive bowel sounds MUSCULOSKELETAL: Extremities without clubbing, cyanosis, or edema. Pedal pulses appreciated NEUROLOGICAL: Awake and alert. Moves all extremity. 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
[2016-11-17] MEDS: cefTRIAXone INJ 2,000 MG in SODIUM CHLORIDE 0.9% INJ 100 ML IV SCH (12:13)
--- NOTE | 2016-11-17 15:22 | HHI.PR ---
Subjective Remarks No change in symptoms keeping the hands warm On calcium channel blockers and nitro paste waiting for bed at [facility] for transfer Objective Vital Signs Date Time Temp Pulse Resp B/P Pulse Ox O2 Delivery O2 Flow Rate FiO2 11/17/16 13:12 96 Nasal Cannula 3.00 11/17/16 08:00 89 11/17/16 08:00 100.4 101 18 133/72 96 11/17/16 04:00 97.8 104 17 142/67 98 11/17/16 00:01 100.1 104 16 136/63 97 11/16/16 20:40 109 11/16/16 20:00 98.3 106 17 127/79 98 11/16/16 16:00 98.0 119 20 140/75 95 I/O 11/16/16 11/16/16 11/16/16 11/17/16 11/17/16 11/17/16 07:00 15:00 23:00 07:00 15:00 23:00 Intake Total 200 ml 1257 ml 440 ml Output Total 600 ml Balance 200 ml 1257 ml -160 ml Intake Oral 200 ml 440 ml IV Total 1257 ml Output Urine Total 600 ml # Voids 2 4 left hand: gangrene index finger from mid phalanx region distally pale looking fingers with decreased capillary refill right hand: purplish discoloration, pale pulp with decreased capillary refill Result Diagram: 11/15/16 0712 11/15/16 1924 Assessment and Plan Assessment and Plan 51 year old male with diabetes and ischemic fingers likely vasculitis vs emboli Plan; Left index finger gangrenous from distal mid phalanx region. Palmar arches not visible on CTA with smooth tapering of the ulnar artery from midforearm, weak signals on hand held doppler, bilaterality suggests patient having Raynaud's phenomenon, vasculitis or emboli. angiogram of the upper extremity would better delineate the vascular anatomy for possible reconstruction depending on the findings. planning for transfer to [facility] continue keeping the hands warm nitro paste application to the palm of the hands and base of the fingers continue calcium channel blockers Seymour Huitron MD Nov 17, 2016 15:22
[2016-11-17 15:54] LABS: MYELOPEROXIDASE LESS THAN 1.0 AI (<1.0); PROTEINASE-3 15.1 AI (<1.0)
--- NOTE | 2016-11-17 16:08 | HHI.PR ---
Subjective Remarks Follow-up with ischemic fingers Patient stated that he does not want to look at his fingers anymore. Waiting for a bed availability at [facility]. Spoke to patient's brother over the phone who is very upset that patient was not transferred over to [facility] yet. Patient stated that his brother can be very abrasive and that he understands that we are doing everything possible for him. Otherwise patient has no complaints. He denies any visual changes, headache, or focal neurological deficit. No other events since he was last seen. Objective Vitals Vital Signs Date Time Temp Pulse Resp B/P Pulse Ox O2 Delivery O2 Flow Rate FiO2 11/17/16 13:12 96 Nasal Cannula 3.00 11/17/16 08:00 89 11/17/16 08:00 100.4 101 18 133/72 96 11/17/16 04:00 97.8 104 17 142/67 98 11/17/16 00:01 100.1 104 16 136/63 97 11/16/16 20:40 109 11/16/16 20:00 98.3 106 17 127/79 98 I/O 11/16/16 11/16/16 11/16/16 11/17/16 11/17/16 11/17/16 07:00 15:00 23:00 07:00 15:00 23:00 Intake Total 200 ml 1257 ml 440 ml Output Total 600 ml Balance 200 ml 1257 ml -160 ml Intake Oral 200 ml 440 ml IV Total 1257 ml Output Urine Total 600 ml # Voids 2 4 Result Diagram: 11/15/16 0712 11/15/161923 Objective Remarks GENERAL: This is a well-nourished, well-developed patient, in no apparent distress. SKIN: Multiple petechial skin lesion on the sole of the right and left feet more on the right, left tip index finger gangrene, and right fingertips with multiple discoloration this has worsened. HEAD: Collapsed nose bridge due to sinus surgery, Normocephalic. EYES: Pupils equal round and reactive. Extraocular motions intact. No scleral icterus. ENT: Nose without bleeding, or drainage, Airway patent. NECK: Trachea midline. Supple CARDIOVASCULAR: Regular rate and rhythm without murmurs, gallops, or rubs. RESPIRATORY: Fair air entry bilaterally. No wheezes, rales, or rhonchi. GASTROINTESTINAL: Abdomen soft, non-tender, nondistended. Positive bowel sounds MUSCULOSKELETAL: Extremities without clubbing, cyanosis, or edema. Pedal pulses appreciated NEUROLOGICAL: Awake and alert. Moves all extremity. Normal speech.no focal neurological deficit Procedures none Medications and IVs Current Medications Sodium Chloride (NS Flush) 2 ml UNSCH PRN IVF FLUSH AFTER USING IV ACCESS Last administered on 11/14/16 14:40; Start 11/14/16 at 13:15; Stop 11/14/16 at 19:05; Status DC Morphine Sulfate (Morphine Inj) 2 mg ONCE ONCE IV PUSH Last administered on 13:41; Start 11/14/16 at 13:45; Stop 11/14/16 at 13:46; Status DC Ondansetron HCl 4 mg 4 mg ONCE ONCE IV PUSH Last administered on 11/14/16 13: 41; Start 11/14/16 at 13:45; Stop 11/14/16 at 13:46; Status DC Sodium Chloride (NS 1000 ml Inj) 1,000 ml @ 999 mls/hr BOLUS ONCE IV Last administered on 11/14/16 13:40; Start 11/14/16 at 13:45; Stop 11/14/16 at 14:45; Status DC Potassium Chloride 40 meq 40 meq ONCE ONCE PO Last administered on 11/14/16 15 :01; Start 11/14/16 at 15:00; Stop 11/14/16 at 15:01; Status DC Sodium Chloride (NS 1000 ml Inj) 1,000 ml @ 999 mls/hr BOLUS ONCE IV Last administered on 11/14/16 15:01; Start 11/14/16 at 15:00; Stop 11/14/16 at 16:00; Status DC Morphine Sulfate (Morphine Inj) 2 mg ONCE ONCE IV PUSH ; Start 11/14/16 at 15:00 ; Stop 11/14/16 at 15:00; Status DC Morphine Sulfate 4 mg 4 mg ONCE ONCE IV PUSH Last administered on 11/14/16 15: 02; Start 11/14/16 at 15:00; Stop 11/14/16 at 15:01; Status DC Sodium Chloride 1,000 ml @ 999 mls/hr BOLUS ONCE IV Last administered on 15:19; Start 11/14/16 at 15:15; Stop 11/14/16 at 16:15; Status DC Sodium Chloride 1,000 ml @ 999 mls/hr BOLUS ONCE IV Last administered on 15:20; Start 11/14/16 at 15:15; Stop 11/14/16 at 16:15; Status DC Sodium Chloride 1,000 ml @ 999 mls/hr BOLUS ONCE IV Last administered on 15:40; Start 11/14/16 at 15:15; Stop 11/14/16 at 16:15; Status DC Piperacillin Sod/ Tazobactam Sod 100 ml @ 200 mls/hr ONCE ONCE IV Last administered on 11/14/16 15:19; Start 11/14/16 at 15:15; Stop 11/14/16 at 15:44; Status DC Vancomycin HCl/ Sodium Chloride (Vancomycin Inj/ NS 250 ml Inj) 250 ml @ 250 mls/hr ONCE ONCE IV Last administered on 11/14/16 15:20; Start 11/14/16 at 15: 15; Stop 11/14/16 at 16:14; Status DC Potassium Bicarb/ Potassium Chloride 25 meq 25 meq ONCE ONCE PO Last administered on 11/14/16 17:01; Start 11/14/16 at 16:30; Stop 11/14/16 at 16:31; Status DC Potassium Chloride (KCl 20 Meq Premix Inj) 100 ml @ 50 mls/hr ONCE ONCE IV Last administered on 11/14/16 17:01; Start 11/14/16 at 16:30; Stop 11/14/16 at 18: 29; Status DC Iohexol 100 ml 100 ml STK-MED ONCE IV Last administered on 11/14/16 16:59; Start 11/14/16 at 16:59; Stop 11/14/16 at 17:00; Status DC Sodium Chloride (NS 1000 ml Inj) 1,000 ml @ 100 mls/hr Q10H IV Last administered on 11/17/16 09:58; Start 11/14/16 at 20:00 Sodium Chloride (NS Flush) 2 ml UNSCH PRN IV FLUSH FLUSH AFTER USING IV ACCESS ; Start 11/14/16 at 18:00 Sodium Chloride (NS Flush) 2 ml BID IV FLUSH Last administered on 11/16/16 21: 16; Start 11/14/16 at 21:00 Acetaminophen (Tylenol) 650 mg Q4H PRN PO TEMP > 100.4; Start 11/14/16 at 18:00 Ondansetron HCl (Zofran Inj) 4 mg Q6H PRN IVP NAUSEA OR VOMITING; Start at 18:00 Magnesium Hydroxide 30 ml 30 ml Q12H PRN PO CONSTIPATION; Start 11/14/16 at 18: 00 Piperacillin Sod/ Tazobactam Sod 100 ml @ 200 mls/hr Q6H IV Last administered on 11/15/16 08:53; Start 11/14/16 at 21:00; Stop 11/15/16 at 09:11; Status DC Vancomycin HCl 1250 mg/Sodium Chloride 262.5 ml @ 262.5 mls/ hr Q24H IV ; Start 11/14/16 at 18:00; Status UNV Pharmacy Profile Note 0 ml @ 0 mls/hr UNSCH OTHER ; Start 11/14/16 at 18:00; Stop 11/15/16 at 09:11; Status DC Vancomycin HCl/ Sodium Chloride (Vancomycin Inj/ NS 500 ml Inj) 516 ml @ 250 mls/hr Q12H IV Last administered on 11/15/16 00:16; Start 11/14/16 at 22:00; Stop 11/15/16 at 09:12; Status DC Miscellaneous Information SPECIFIC LAB TO BE MOISÉS... ONCE ONCE .XX ; Start at 09:45; Stop 11/16/16 at 09:46; Status Cancel Amlodipine Besylate (Norvasc) 5 mg DAILY PO Last administered on 11/17/16 09:45 ; Start 11/14/16 at 21:15 Albuterol Sulfate (Ventolin Hfa Inh) 1 puff Q4H PRN INH SHORTNESS OF BREATH Last administered on 11/15/16 00:25; Start 11/14/16 at 21:15 Famotidine (Pepcid) 20 mg BID PO Last administered on 11/17/16 09:45; Start 11/15/16 at 09:00 Dextrose (D50w (Vial) Inj) 25 ml UNSCH PRN IV PUSH HYPOGLYCEMIA-SEE COMMENTS; Start 11/14/16 at 21:15 Glucagon (Glucagon Inj) 1 mg UNSCH PRN OTHER HYPOGLYCEMIA-SEE COMMENTS; Start 11/14/16 at 21:15 Insulin Aspart (NovoLOG SUPPLEMENTAL SCALE) 1 ACHS SLIDING SCALE SQ Last administered on 11/17/16 15:55; Start 11/15/16 at 07:00 Hydromorphone HCl (Dilaudid Pf Inj) 0.5 mg Q4H PRN IV PUSH PAIN > 5 Last administered on 11/17/16 15:56; Start 11/14/16 at 21:15 Acetaminophen/ Hydrocodone Bitart ([place] 5-325 Mg) 1 tab Q4H PRN PO PAIN < 5 Last administered on 11/14/16 22:38; Start 11/14/16 at 21:15 Nitroglycerin (Nitro-Dur 0.2 Mg Patch.24 Hr) 1 patch ONCE ONCE T-DERMAL ; Start 11/15/16 at 17:00; Stop 11/15/16 at 17:01; Status Cancel Miscellaneous Information 1 ONCE T-DERMAL ; Start 11/16/16 at 18:00; Stop at 20:00; Status Cancel Iohexol (Omnipaque 350 Inj) 73 ml STK-MED ONCE IV Last administered on 17:01; Start 11/15/16 at 17:01; Stop 11/15/16 at 17:02; Status DC Nitroglycerin (Nitroglycerin 2% Oint) 1 inch DAILY TOPICAL Last administered on 11/17/16 09:45; Start 11/15/16 at 18:21 Lorazepam (Ativan Inj) 1 mg UNSCH X1 PRN IV PRIOR TO MRI Last administered on 10:09; Start 11/16/16 at 08:15; Stop 11/16/16 at 16:00; Status DC Gadodiamide 20 ml 20 ml STK-MED ONCE IV Last administered on 11/16/16 11:16; Start 11/16/16 at 11:16; Stop 11/16/16 at 11:17; Status DC Ceftriaxone Sodium/Sodium Chloride (Rocephin Inj/NS Inj) 100 ml @ 200 mls/hr Q24H IV Last administered on 11/17/16 12:13; Start 11/17/16 at 11:00 A/P Problem List: (1) Gangrene of finger ICD Code: I96 Status: Acute (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 Since patient did not display any symptoms of sepsis and was afebrile per infectious disease very highly unlikely that this is an septic emboli. Antibiotics was discontinued and he remained afebrile. - Hand surgeon was also consulted in which they requested vascular surgeon to be consulted and also recommending possible transfer to [facility] for rheumatology consult. - on amlodipine and nitroglycerin which did not help with symptoms. - CTA of the left upper extremity which was negative, x-ray of the hand which was also negative. - Initial autoimmune workup was obtained which all were negative the moment. CRP was elevated at 22.9. Vascular surgeon also consulted and recommend designer architect consultation. -Pending transfer to [facility]. Akins's palsy so neurologist was consulted. - CT scan of the head was done which was negative. -MRI showed sinusitis. - Apply eye patch during the night along with eye ointment at night. - An echo was done which was negative. Sinusitis -Patient was put on Rocephin. DVT prophylaxis -SCDs. Discharge Planning I spoke to patient and his brother extensively on the management. Unfortunately patient is not improving with current treatment in which a designer architect if needed for assistance. [facility] does not have a designer architect so patient is being transferred to [facility]. [facility] accepted the patient we are still waiting for a bed placement. Patient stated that I do not need to speak to his brother in regards to any updates and that he will update his brother. I spoke to patient's brother Bautista Alissayana at [phone]. Danna Juarez MD Nov 17, 2016 16:08
[2016-11-18] VITALS (10 sets, daily range): BP systolic 128–146; BP diastolic 63–89; PULSE 79–107; RESP 18–20; TEMP 97.9–99.5; O2SAT 91–97
[2016-11-18] MEDS: HYDROmorphone HCL PF 1 MG/ML VIAL IV PUSH PRN ×5 (00:58→21:19)
[2016-11-18] MEDS: SODIUM CHLOR 0.9% 1000 ML INJ 1,000 ML IV SCH ×2 (05:31→14:00)
[2016-11-18] MEDS: INSULIN ASPART SUPPLEMENTAL SCALE SQ SCH ×4 (07:00→21:18)
--- NOTE | 2016-11-18 08:14 | HHI.PR ---
Subjective Remarks f/u for ischemic fingers. Patient stated he feels the same. continues to required pain meds. Patient is very concerned that he will lose all his fingers. Patient's brother and mother are at the bedside. Objective Vitals Vital Signs Date Time Temp Pulse Resp B/P Pulse Ox O2 Delivery O2 Flow Rate FiO2 11/18/16 08:09 93 Nasal Cannula 2.00 11/18/16 05:25 99.1 95 20 142/63 97 11/18/16 00:34 99.5 79 20 133/63 96 11/17/16 20:55 98.9 104 20 150/64 95 11/17/16 20:27 99 11/17/16 16:00 100.7 103 18 106/59 93 11/17/16 13:12 96 Nasal Cannula 3.00 I/O 11/17/16 11/17/16 11/17/16 11/18/16 11/18/16 11/18/16 07:00 15:00 23:00 07:00 15:00 23:00 Intake Total 440 ml 480 ml Output Total 600 ml Balance -160 ml 480 ml Intake Oral 440 ml 480 ml Output Urine Total 600 ml # Voids 4 1 1 # Bowel Movements 0 0 Result Diagram: 11/15/16 0712 11/15/161923 Objective Remarks GENERAL: This is a well-nourished, well-developed patient, in no apparent distress. SKIN: Multiple petechial skin lesion on the sole of the right and left feet more on the right, left tip index finger gangrene, and right fingertips with multiple discoloration this has worsened. HEAD: Collapsed nose bridge, Normocephalic. EYES: Pupils equal round and reactive. Extraocular motions intact. No scleral icterus. ENT: Nose without bleeding, or drainage, Airway patent. NECK: Trachea midline. Supple CARDIOVASCULAR: Regular rate and rhythm without murmurs, gallops, or rubs. RESPIRATORY: Left basilar area with course crackles. GASTROINTESTINAL: Abdomen soft, non-tender, nondistended. Positive bowel sounds MUSCULOSKELETAL: Extremities without clubbing, cyanosis, or edema. Pedal pulses appreciated NEUROLOGICAL: Awake and alert. Moves all extremity. Normal speech.no focal neurological deficit Procedures none Medications and IVs Current Medications Sodium Chloride (NS Flush) 2 ml UNSCH PRN IVF FLUSH AFTER USING IV ACCESS Last administered on 11/14/16 14:40; Start 11/14/16 at 13:15; Stop 11/14/16 at 19:05; Status DC Morphine Sulfate (Morphine Inj) 2 mg ONCE ONCE IV PUSH Last administered on 13:41; Start 11/14/16 at 13:45; Stop 11/14/16 at 13:46; Status DC Ondansetron HCl 4 mg 4 mg ONCE ONCE IV PUSH Last administered on 11/14/16 13: 41; Start 11/14/16 at 13:45; Stop 11/14/16 at 13:46; Status DC Sodium Chloride (NS 1000 ml Inj) 1,000 ml @ 999 mls/hr BOLUS ONCE IV Last administered on 11/14/16 13:40; Start 11/14/16 at 13:45; Stop 11/14/16 at 14:45; Status DC Potassium Chloride 40 meq 40 meq ONCE ONCE PO Last administered on 11/14/16 15 :01; Start 11/14/16 at 15:00; Stop 11/14/16 at 15:01; Status DC Sodium Chloride (NS 1000 ml Inj) 1,000 ml @ 999 mls/hr BOLUS ONCE IV Last administered on 11/14/16 15:01; Start 11/14/16 at 15:00; Stop 11/14/16 at 16:00; Status DC Morphine Sulfate (Morphine Inj) 2 mg ONCE ONCE IV PUSH ; Start 11/14/16 at 15:00 ; Stop 11/14/16 at 15:00; Status DC Morphine Sulfate 4 mg 4 mg ONCE ONCE IV PUSH Last administered on 11/14/16 15: 02; Start 11/14/16 at 15:00; Stop 11/14/16 at 15:01; Status DC Sodium Chloride 1,000 ml @ 999 mls/hr BOLUS ONCE IV Last administered on 15:19; Start 11/14/16 at 15:15; Stop 11/14/16 at 16:15; Status DC Sodium Chloride 1,000 ml @ 999 mls/hr BOLUS ONCE IV Last administered on 15:20; Start 11/14/16 at 15:15; Stop 11/14/16 at 16:15; Status DC Sodium Chloride 1,000 ml @ 999 mls/hr BOLUS ONCE IV Last administered on 15:40; Start 11/14/16 at 15:15; Stop 11/14/16 at 16:15; Status DC Piperacillin Sod/ Tazobactam Sod 100 ml @ 200 mls/hr ONCE ONCE IV Last administered on 11/14/16 15:19; Start 11/14/16 at 15:15; Stop 11/14/16 at 15:44; Status DC Vancomycin HCl/ Sodium Chloride (Vancomycin Inj/ NS 250 ml Inj) 250 ml @ 250 mls/hr ONCE ONCE IV Last administered on 11/14/16 15:20; Start 11/14/16 at 15: 15; Stop 11/14/16 at 16:14; Status DC Potassium Bicarb/ Potassium Chloride 25 meq 25 meq ONCE ONCE PO Last administered on 11/14/16 17:01; Start 11/14/16 at 16:30; Stop 11/14/16 at 16:31; Status DC Potassium Chloride (KCl 20 Meq Premix Inj) 100 ml @ 50 mls/hr ONCE ONCE IV Last administered on 11/14/16 17:01; Start 11/14/16 at 16:30; Stop 11/14/16 at 18: 29; Status DC Iohexol 100 ml 100 ml STK-MED ONCE IV Last administered on 11/14/16 16:59; Start 11/14/16 at 16:59; Stop 11/14/16 at 17:00; Status DC Sodium Chloride (NS 1000 ml Inj) 1,000 ml @ 100 mls/hr Q10H IV Last administered on 11/18/16 14:00; Start 11/14/16 at 20:00 Sodium Chloride (NS Flush) 2 ml UNSCH PRN IV FLUSH FLUSH AFTER USING IV ACCESS ; Start 11/14/16 at 18:00 Sodium Chloride (NS Flush) 2 ml BID IV FLUSH Last administered on 11/17/16 20: 33; Start 11/14/16 at 21:00 Acetaminophen (Tylenol) 650 mg Q4H PRN PO TEMP > 100.4; Start 11/14/16 at 18:00 Ondansetron HCl (Zofran Inj) 4 mg Q6H PRN IVP NAUSEA OR VOMITING; Start at 18:00 Magnesium Hydroxide 30 ml 30 ml Q12H PRN PO CONSTIPATION; Start 11/14/16 at 18: 00 Piperacillin Sod/ Tazobactam Sod 100 ml @ 200 mls/hr Q6H IV Last administered on 11/15/16 08:53; Start 11/14/16 at 21:00; Stop 11/15/16 at 09:11; Status DC Vancomycin HCl 1250 mg/Sodium Chloride 262.5 ml @ 262.5 mls/ hr Q24H IV ; Start 11/14/16 at 18:00; Status UNV Pharmacy Profile Note 0 ml @ 0 mls/hr UNSCH OTHER ; Start 11/14/16 at 18:00; Stop 11/15/16 at 09:11; Status DC Vancomycin HCl/ Sodium Chloride (Vancomycin Inj/ NS 500 ml Inj) 516 ml @ 250 mls/hr Q12H IV Last administered on 11/15/16 00:16; Start 11/14/16 at 22:00; Stop 11/15/16 at 09:12; Status DC Miscellaneous Information SPECIFIC LAB TO BE MOISÉS... ONCE ONCE .XX ; Start at 09:45; Stop 11/16/16 at 09:46; Status Cancel Amlodipine Besylate (Norvasc) 5 mg DAILY PO Last administered on 11/18/16 09:28 ; Start 11/14/16 at 21:15 Albuterol Sulfate (Ventolin Hfa Inh) 1 puff Q4H PRN INH SHORTNESS OF BREATH Last administered on 11/15/16 00:25; Start 11/14/16 at 21:15 Famotidine (Pepcid) 20 mg BID PO Last administered on 11/18/16 09:28; Start 11/15/16 at 09:00 Dextrose (D50w (Vial) Inj) 25 ml UNSCH PRN IV PUSH HYPOGLYCEMIA-SEE COMMENTS; Start 11/14/16 at 21:15 Glucagon (Glucagon Inj) 1 mg UNSCH PRN OTHER HYPOGLYCEMIA-SEE COMMENTS; Start 11/14/16 at 21:15 Insulin Aspart (NovoLOG SUPPLEMENTAL SCALE) 1 ACHS SLIDING SCALE SQ Last administered on 11/18/16 12:13; Start 11/15/16 at 07:00 Hydromorphone HCl (Dilaudid Pf Inj) 0.5 mg Q4H PRN IV PUSH PAIN > 5 Last administered on 11/18/16 13:43; Start 11/14/16 at 21:15 Acetaminophen/ Hydrocodone Bitart ([place] 5-325 Mg) 1 tab Q4H PRN PO PAIN < 5 Last administered on 11/14/16 22:38; Start 11/14/16 at 21:15 Nitroglycerin (Nitro-Dur 0.2 Mg Patch.24 Hr) 1 patch ONCE ONCE T-DERMAL ; Start 11/15/16 at 17:00; Stop 11/15/16 at 17:01; Status Cancel Miscellaneous Information 1 ONCE T-DERMAL ; Start 11/16/16 at 18:00; Stop at 20:00; Status Cancel Iohexol (Omnipaque 350 Inj) 73 ml STK-MED ONCE IV Last administered on 17:01; Start 11/15/16 at 17:01; Stop 11/15/16 at 17:02; Status DC Nitroglycerin (Nitroglycerin 2% Oint) 1 inch DAILY TOPICAL Last administered on 11/18/16 09:28; Start 11/15/16 at 18:21 Lorazepam (Ativan Inj) 1 mg UNSCH X1 PRN IV PRIOR TO MRI Last administered on 10:09; Start 11/16/16 at 08:15; Stop 11/16/16 at 16:00; Status DC Gadodiamide 20 ml 20 ml STK-MED ONCE IV Last administered on 11/16/16 11:16; Start 11/16/16 at 11:16; Stop 11/16/16 at 11:17; Status DC Ceftriaxone Sodium/Sodium Chloride (Rocephin Inj/NS Inj) 100 ml @ 200 mls/hr Q24H IV Last administered on 11/18/16 12:13; Start 11/17/16 at 11:00 Methylprednisolone Sodium Succinate (SoluMEDROL INJ) 125 mg ONCE ONCE IV PUSH Last administered on 11/18/16 13:43; Start 11/18/16 at 12:45; Stop 11/18/16 at 12: 46; Status DC Potassium Chloride (KCl) 30 meq Q12HR PO Last administered on 11/18/16 13:43; Start 11/18/16 at 13:00 Methylprednisolone Sodium Succinate (SoluMEDROL INJ) 60 mg TID IV PUSH ; Start 11/18/16 at 18:00 Albuterol/ Ipratropium (Duoneb Neb) 1 ampule Q6HR NEB NEB ; Start 11/18/16 at 16 :00 Albuterol/ Ipratropium (Duoneb Neb) 1 ampule Q2HR NEB PRN NEB SHORTNESS OF BREATH; Start 11/18/16 at 13:45 A/P Problem List: (1) Gangrene of finger ICD Code: I96 Status: Acute (2) right lower motor neuron palsy Status: Acute Assessment and Plan Bilateral fingers and right foot with ischemic changes left index finger being severe and most likely gangrenous - initially treated empirically for septic embolic disease with IV antibiotics and infectious disease was consulted. Since patient did not display any symptoms of sepsis and was afebrile per infectious disease very highly unlikely that this is an septic emboli. Antibiotics was discontinued. - Hand surgeon was also consulted in which they requested vascular surgeon to be consulted both requesting thoracic surgeon input for possible vasculitis. - on amlodipine and nitroglycerin for possible Raynaud which did not help with symptoms. - CTA of the left upper extremity which was negative, x-ray of the hand which was also negative. - c-ANCA positive and CRP was elevated at 22.9. 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 I told them this is an emergency and that patient might have a rare dx that needs to be treated ARYAN or him will lose his fingers. I also spoke to [facility] and they stated they do not have [place] [facility] at there hospital. -In the meantime I spoke to the vascular surgeon over the phone in which he stated that he thinks this is a vasculitis. I also spoke to hand surgeon in person who stated that patient may need reconstruction of his hand. -Since patient is not improving with current treatment and suspecting diagnosis includes vasculitis in which patient does have elevated sedimentation rate and CRP will treat empirically with IV Solu-Medrol. Will monitor for response clinically and with CRP. -Will also obtain other autoimmune labs and ischemic workup. -Will also consult irrigationist designer Dr. Garcia to help assist. Left lower lobe crackles -Patient was asymptomatic, but due to the working diagnosis as above a chest x- ray was obtained. -Patient now has a large left pleural effusion. Most likely will need a therapeutic thoracentesis. Will consult logging tractor operator swamp. -Transmission Tester may also help in getting a possible biopsy. 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 - CT scan of the head was done which was negative. -MRI showed sinusitis. - Apply eye patch during the night along with eye ointment at night. - An echo was done which was negative. Sinusitis -Patient was put on Rocephin. -I also tried to contact Dr. Chapa patient's ENT physician in regards to his previous workup. DVT prophylaxis -SCDs. Discharge Planning That is still not available as [facility]. They stated that patient is on their emergency list. I dealt extensively at the bedside with patient, his brother, and his mother in regards of his transfer and with the current workup. All questions were answer and they were satisfied. Danna Juarez MD Nov 18, 2016 08:14
[2016-11-18] MEDS: SODIUM CHLORIDE 0.9% FLUSH 10 ML FLUSH IV FLUSH SCH ×2 (09:00→21:00)
--- NOTE | 2016-11-18 09:13 | RADRPT ---
EXAM DATE/TIME: 11/18/2016 08:20 [facility] COMPARISON: CHEST PA & LAT, March 16, 2015, 7:34. INDICATIONS : Cough. MEDICAL HISTORY : Diabetes mellitus type 2. SURGICAL HISTORY : Sinus surgery. Cyst removal. ENCOUNTER: Subsequent ACUITY: 4 - 6 days PAIN SCORE: 0/10 LOCATION: Chest. FINDINGS: PA lateral views of the chest demonstrate a new large left-sided pleural effusion with overlying atel ectasis. The remainder of the aerated lungs are clear. The heart size is normal. Osseous structures a re unremarkable. Multiple overlying wires are noted. CONCLUSION: New large left-sided pleural effusion with overlying atelectasis. Ilana Shepherd MD on November 18, 2016 at 9:11 Board Certified Radiologist. This report was verified electronically.
[2016-11-18] MEDS: NITROGLYCERIN 2% OINT 1 GM PACKET TOPICAL SCH (09:28)
[2016-11-18] MEDS: amLODIPine BESYLATE 5 MG TAB PO SCH (09:28)
[2016-11-18] MEDS: FAMOTIDINE 20 MG TAB PO SCH ×2 (09:28→21:17)
[2016-11-18 11:14] LABS: AUTOMATED NEUTROPHIL # 13.4 TH/MM3 (1.8-7.7); BASOPHIL % 0.1 % (0.0-2.0); EOSINOPHIL # 0.1 TH/MM3 (0-0.4); EOSINOPHIL % 0.9 % (0.0-4.0); HEMATOCRIT 28.1 % (39.0-51.0); LYMPH % 5.9 % (9.0-44.0); LYMPHOCYTE # 0.9 TH/MM3 (1.0-4.8); MEAN CELL VOLUME 76.8 FL (80.0-100.0); MEAN CORPUSCULAR HEMOGLOBIN 24.7 PG (27.0-34.0); MEAN CORPUSCULAR HGB CONC 32.2 % (32.0-36.0); MONO % 8.4 % (0.0-8.0); NEUT % 84.7 % (16.0-70.0); PLATELET COUNT 461 TH/MM3 (150-450); RED BLOOD COUNT 3.66 MIL/MM3 (4.50-5.90); RED CELL DISTRIBUTION WIDTH 15.5 % (11.6-17.2); WHITE BLOOD COUNT 15.8 TH/MM3 (4.0-11.0)
[2016-11-18 11:18] LABS: HEMO FLAGS AUTO DIFF
[2016-11-18 11:45] LABS: WESTERGREN SEDIMENTATION RATE GREATER THAN 140 mm/hr (0-15)
[2016-11-18 11:56] LABS: OVALOCYTES 1+ (NORMAL); SCAN/DIFF AUTO DIFF CONFIRMED
[2016-11-18 12:05] LABS: BICARBONATE 27.6 MEQ/L (21.0-32.0); HDL CHOLESTEROL 27.8 MG/DL (40.0-60.0)
[2016-11-18] MEDS: cefTRIAXone INJ 2,000 MG in SODIUM CHLORIDE 0.9% INJ 100 ML IV SCH (12:13)
[2016-11-18 12:40] LABS: POTASSIUM 2.7 MEQ/L (3.5-5.1)
[2016-11-18] MEDS ORDERED: methylPREDNISolone SOD SUCC 125 MG/2 ML VIAL IV PUSH ONE (12:45)
[2016-11-18] MEDS: POTASSIUM CHLORIDE 10 MEQ CONTROLLED RELEASE TAB PO SCH ×2 (13:43→21:17)
[2016-11-18] MEDS ORDERED: RESP: ALBUTEROL 2.5 MG/IPRATROPIUM 0.5 MG NEB (PRN) NEB (13:45)
[2016-11-18 14:08] LABS: MAGNESIUM 1.6 MG/DL (1.5-2.5)
[2016-11-18] MEDS ORDERED: IOHEXOL 350 MG/ML 10 ML VIAL (for RAD DIAG) IV ONE (15:10)
--- NOTE | 2016-11-18 15:14 | RADRPT ---
EXAM DATE/TIME: 11/18/2016 14:53 [place] Corrected on: November 18, 2016; [facility] COMPARISON: No previous studies available for comparison. INDICATIONS : Sinus disease. RADIATION DOSE: 9.21 CTDIvol (mGy) MEDICAL HISTORY : None SURGICAL HISTORY : Sinus surgery. ENCOUNTER: Initial ACUITY: 1 week PAIN SCORE: 3/10 LOCATION: Bilateral cranial TECHNIQUE: Volumetric scanning of the paranasal sinuses was performed. Using automated exposure control and adj ustment of the mA and/or kV according to patient size, radiation dose was kept as low as reasonably a chievable to obtain optimal diagnostic quality images. FINDINGS: MAXILLARY SINUSES: There is evidence of previous nasal sinus surgery with near complete opacification of the right maxil pritesh sinus. Mild to moderate mucosal thickening in the left maxillary sinus. No definite air-fluid le vels. ETHMOID SINUSES: There is evidence of previous nasal sinus surgery. There is opacification of the white sinuses bilate rally. SPHENOID SINUSES: There is almost near complete opacification of the sphenoid sinuses bilaterally. FRONTAL SINUSES: There is moderate opacification of the frontal sinuses bilaterally. NASAL FOSSA: There is evidence of previous nasal sinus surgery. There is diffuse mucosal thickening throughout the nasal cavity bilaterally. There is some chronic mastoiditis on the right side. There is mucosal thickening in the right middle ear cavity. CONCLUSION: 1. There is evidence of previous nasal sinus surgery. 2. There is diffuse bilateral pansinusitis as noted above. 3. No air-fluid levels are seen at this time. Indra Harris MD on November 18, 2016 at 15:10 Board Certified Radiologist. This report was verified electronically. Indra Harris MD on November 18, 2016 at 15:15 Board Certified Radiologist. This report was verified electronically.
[2016-11-18] MEDS ORDERED: MAGNESIUM SULFATE 1 GM PREMIX 100 ML IV ONE (15:30)
[2016-11-18] MEDS ORDERED: POTASSIUM CHLORIDE 10 MEQ CONTROLLED RELEASE TAB PO ONE (15:30)
--- NOTE | 2016-11-18 16:01 | RADRPT ---
EXAM DATE/TIME: 11/18/2016 15:00 [facility] COMPARISON: CHEST PA & LAT, November 18, 2016, 8:20. INDICATIONS : Shortness of breath. IV CONTRAST: 60 cc Omnipaque 350 (iohexol) IV RADIATION DOSE: 14.36 CTDIvol (mGy) MEDICAL HISTORY : None SURGICAL HISTORY : None. ENCOUNTER: Initial ACUITY: 1 day PAIN SCALE: 0/10 LOCATION: chest TECHNIQUE: Volumetric scanning of the chest was performed using a pulmonary embolism protocol MIP images were re constructed. Using automated exposure control and adjustment of the mA and/or kV according to patien t size, radiation dose was kept as low as reasonably achievable to obtain optimal diagnostic quality images. FINDINGS: PULMONARY ARTERIES: No filling defects are seen in the pulmonary arteries through the segmental level. LUNGS: There is some scattered areas of atelectasis in the left lower lung. Otherwise the left lung is clear . The right lung is grossly clear. However, there is a 1.8 cm density in the right cardiophrenic angl e with density measurements suggestive of a probable cyst. Given its location this is most likely a s mall pericardial cyst. There is some nonspecific parenchymal changes in both hilar areas. PLEURAE: There is a very small left pleural effusion. No pleural effusion on the right. MEDIASTINUM: There is good visualization of the great vessels of the middle mediastinum. There is some nonspecific increased soft tissue changes in both hilar areas. No evidence of mediastinal or hilar adenopathy/m ass. There appears to be a 1.8 cm probable pericardial cyst in the right cardiophrenic angle. MUSCULOSKELETAL: Within normal limits for patient age. MISCELLANEOUS: The visualized upper abdominal organs demonstrate no acute abnormality. CONCLUSION: 1. No evidence of pulmonary embolism. 2. 1.8 cm well-defined density in the right cardiophrenic angle. Density measurements suggest this is probably a pericardial cyst. However, for conservative management I would recommend a PET CT on a n onemergent outpatient basis to exclude any focal hypermetabolic activity. 3. Increased parenchymal changes in the hilar areas bilaterally. Perihilar infiltrates versus adenopa thy are the considerations. 4. Very small left pleural effusion with left lower lung atelectasis. Indra Harris MD on November 18, 2016 at 15:51 Board Certified Radiologist. This report was verified electronically.
[2016-11-18] MEDS: RESP: ALBUTEROL 2.5 MG/IPRATROPIUM 0.5 MG NEB (SCH) NEB ×2 (16:04→21:20)
[2016-11-18] MEDS: methylPREDNISolone SOD SUCC 125 MG/2 ML VIAL IV PUSH SCH (17:12)
[2016-11-18 17:49] LABS: BLOOD, URINE LARGE (NEG); GLUCOSE,URINE NEG (NEG); KETONE, URINE 80 mg/dL (NEG); MUCUS URINE FEW /lpf (OCC); NITRITE,URINE NEG (NEG); PH, URINE 6.5 (5.0-8.5); URINE COLOR YELLOW (YELLW/STRAW)
--- NOTE | 2016-11-18 17:59 | MB ---
cc: HEATHER ZHENG DATE OF CONSULTATION 11/18/16 67 HISTORY OF PRESENT ILLNESS The patient is a 51-year-old male with past medical history of bronchial asthma, diabetes mellitus, Akins's palsy, who presented to [facility] ED on November 14 with pain and cyanosis of the left index finger. In addition, he noticed some discoloration of his first three fingers on the right. He denies any similar episodes in the past. On arrival, he was found to have leukocytosis with a WBC of 22.5. His urine drug screen is negative for opiates and benzodiazepines. He had a CT of the upper extremity which was negative and flow was seen to the wrist via radial artery. CT scan of the brain negative for acute intracranial findings. He also had a CT of the neck which was negative as well for hemodynamically significant stenosis. An MRI of the brain showed no acute findings. However, it showed diffuse chapa sinus disease and large air-fluid level in the right maxillary and small air-fluid level in the left maxillary sinus. A chest x-ray from this morning showed a left pleural effusion with overlying atelectasis. Pulmonary medicine was consulted regarding left pleural effusion. During his hospital course, he was seen by vascular surgery, hand surgery, Infectious disease and neurology service. The vasculitis workup revealed elevated antiproteinase three at 15.1. His KRYSTIAN screen is negative and antimyeloperoxidase less than 1.0. In addition, the patient had normal complement levels of C3 and C4. 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 He is on 2 liters oxygen with good saturation. The patient states that he had sinus surgery back in 2014 and his voice has been hoarse for the past six months. He is a nonsmoker and takes albuterol at home p.r.n. for his bronchial asthma. He denies any chest pain, cough, fever or any constitutional symptoms. However, he reports shortness of breath with minimal exertion. Echocardiogram was performed on November 14 which showed normal LV systolic function with EF of 60-65% with no regional wall motion abnormalities. The patient denies any nausea, vomiting or abdominal pain. PAST MEDICAL HISTORY 1. Diabetes mellitus, 2. Akins's palsy. PAST SURGICAL HISTORY Previous sinus surgery. ALLERGIES NO KNOWN DRUG ALLERGIES. MEDICATIONS Current, 1. Rocephin. 2. Pepcid 3. Solu-Medrol 4. IV fluids. FAMILY HISTORY Noncontributory. SOCIAL HISTORY Nonsmoker, nondrinker. REVIEW OF SYSTEMS As per HPI. Rest of review of system unremarkable. PHYSICAL EXAMINATION GENERAL: A 51-hour male lying in bed in no acute respiratory distress. VITAL SIGNS: Temperature 98.4, pulse of 103, respiratory rate of 20, blood pressure 140/74, saturation 93% on 2 liters oxygen. HEENT: Atraumatic, normocephalic. Pupils equal, round, reactive to light and accommodation. Extraocular muscles intact. Conjunctivae pink. Nonicteric sclerae. Oral mucosa within normal. NECK: Supple. No JVD, adenopathy or thyromegaly. Trachea in the midline. CARDIOVASCULAR: Tachycardiac, normal S1-S2. No murmurs, rubs or gallops noted. LUNGS: Bilateral equal entry with few coarse breath sounds and scattered wheezing. ABDOMEN: Soft, nontender, no distension. Positive bowel sounds. EXTREMITIES: No clubbing or edema, cyanosis of the left index finger in addition to discoloration of the first three fingers on the right NEUROLOGIC: No focal sensory deficit. LABORATORY DATA Sodium of 135, potassium 3.5, chloride 97, CO2 27, BUN of seven, creatinine 0.57, glucose 190. WBC 15.8, hemoglobin nine, hematocrit 28, platelet count 461. IMAGING STUDIES Chest x-ray showed left pleural effusion with overlying atelectasis. MRI of the brain showed diffuse chapa sinus disease. CTA of the neck negative for hemodynamically significant stenosis. Upper extremity CTA negative. IMPRESSION 1. Respiratory insufficiency. 2. Vasculitis, differential diagnosis Osei's granulomatosis versus polyarteritis versus __ Kortney syndrome versus hypersensitivity vasculitis. 3. Small left pleural effusion with atelectasis. 4. History of bronchial asthma. 5. Chapa sinus disease per MRI of the brain 6. Cyanosis of left index finger. 7. Diabetes mellitus. RECOMMENDATIONS 1. Continue with oxygen and maintain sats above 92%. 2. Bronchodilators in the form of DuoNeb q. 4 plus q. 2 p.r.n. for shortness of breath 3. Continue with IV steroids. The patient was placed on Solu-Medrol 60 mg IV t.i.d. 4. We will proceed with a CTA or CT pulmonary angiogram of the chest for further evaluation of the pulmonary parenchyma and to rule out pulmonary embolism. Doubt pulmonary embolus. 5. We will need of pulmonary function test to rule out obstructive versus restrictive lung disease in the setting of likely a vasculitis picture. 6. Incentive spirometry q. 1 hour while awake. 7. Continue with antibiotics per ID. He is currently on Rocephin. Monitor for signs of infections which include fever and WBC. 8. Vascular surgery and hand surgery followup. 9. Chest x-ray from this morning reviewed which showed small pleural effusion. If there is an increase in pleural effusion, we will consider thoracentesis. 10. Primary team is arranging to transfer the patient to [facility] for vasculitis workup. 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 11. We will check a baseline IgE level 12. GI and DVT prophylaxis per primary team. further recommendations will be based on hospital course. Thank you for the consultation and allowing us to participate in this patient's care. MD LINCOLN Eller/ /1:43 PM /5:32 PM
--- NOTE | 2016-11-18 19:19 | MB ---
cc: DANNA ERNST MD, RUBY ANNE E. M.D. DATE OF CONSULTATION 11/18/16 1965 DATE OF SERVICE 11/18/[address] Danna Ernst CHIEF COMPLAINT Dr. Ernst requests a consultation for Mr. 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 Mercado is a 51-year-old man with a history of diabetes, recent Akins's palsy and recurrent sinus infection for the past six months. He presented to the emergency room with discoloration of his left index finger. He felt that the left index finger was bruised for several weeks. He noticed it was getting painful and cold. He presented to the emergency room and was admitted for concern of acute arterial thrombotic event. During the hospitalization, he was evaluated at length by vascular surgery. He appears to have ischemic fingers with decreased capillary refill. Angiogram was performed by radiology which showed negative CTA of the upper extremity. Flow is seen down to wrist via the radial artery. Given his history of sinus disease, Infectious disease was consulted. His last antibiotic course was about a month ago. He has had problems with asthma. He has had no fevers during his hospitalization, but he has elevated sed rate and C-reactive protein. CT scan of the head from 11/14/2016 showed severely abnormal-appearing appearance of the sinus and nasal cavity. Neurology was consulted for the Akins's palsy. He had right lower motor neuron facial palsy. He had findings of abnormal taste, abnormal hearing and change in the tone of his voice. He has right lower motor neuron facial palsy and long tract signs, upgoing toe on the right side. The possibility of inflammatory vasculitic process is considered. During his hospital course, the left index finger has gotten progressively worse where it is gangrenous at the present time. His right hand thumb and first finger are beginning to look mottled as the first finger. Consideration for vasculitis is made stronger with the presence of antiproteinase III positivity. KRYSTIAN screen was negative. The case was discussed with Dr. Ernst. The patient is pending transfer to rheumatology at [facility] for concerns of Osei's or and ANCA positive small vessel vasculitis. Hematology/Oncology is consulted to assist in diagnosis and management. Review of labs shows a microcytic anemia. There are no previous labs prior to this hospitalization. He is not aware of previous anemia. His renal function appeared to be normal. Interestingly, his protein is significantly diminishes. His albumin is only 1.5. Urinalysis was positive for blood and urine. His PT/PTT are mildly prolonged. Mr. Mercado denies any bleeding. Denies any cough or hemoptysis. He is pending a CT scan of the chest as discussed with Dr. Ernst. PAST MEDICAL HISTORY 1. Recurrent sinus infection 2. Akins's palsy PAST SURGICAL HISTORY None SOCIAL HISTORY Denies any tobacco, alcohol or illicit drug use. ALLERGIES NO KNOWN DRUG ALLERGIES. MEDICATIONS Current, 1. Solu-Medrol. 2. DuoNebs. 3. Ceftriaxone. 4. Pepcid. 5. Famotidine. 6. Norvasc. 7. Albuterol. 8. Hydromorphone p.r.n. FAMILY HISTORY No family history of cancer. PHYSICAL EXAMINATION VITAL SIGNS: Temperature 98.4, heart rate 103, respiratory rate 20, blood pressure 140/74, saturation 93%. GENERAL: Mr. Mercado is a well-developed obese man in no acute distress. He has a right Akins's palsy. HEENT: His pupils are round, reactive. Oropharynx is clear. NECK: Supple. LUNGS: Diminished breath sounds at the base. CARDIOVASCULAR: Mild tachycardia. ABDOMEN: Large EXTREMITIES: Lower extremity - good pulses. No edema. Bilateral hands had good pulses. There is bluish discoloration mottling of the thumb and first finger of the right hand. The left hand first finger is overtly necrotic. LABORATORY DATA As described above. PT/PTT are mildly prolonged, hemoglobin 9.0, platelet count 461, MCV 76.8. ASSESSMENT/PLAN Mr. Mercado is a 51-year-old man with history of recurrent sinus infection who presents with ischemia of the left first finger. I had a lengthy discussion with Mr. Mercado and his family present at the consultation the concern for an ANCA positive small vessel vasculitis. He has evidence for end organ damage with the proteinuria, hematuria consistent with glomerulonephritis. A 24-hour urine will be initiated. He may benefit from nephrology consultation. CT scan of the chest is on way to evaluate his lungs. So far, he has no respiratory symptoms. He has a microcytic anemia. The etiology of iron loss is not established as yet. He has ischemic changes and has led to gangrene of his left first finger as well as progression of the disease with mottling and same process occurring in his right hand. In light of the pace of his condition and his additional limbs being threatened in addition to the kidney, we discussed empiric treatment with steroids to decrease the antibody production. We discussed as well room of plasmapheresis. All of this would be nice to discuss with his accepting physician. We will try to locate. In the meantime, laboratory evaluation to rule out cold agglutinins, cryoglobulin, hepatitis C will be coordinated. His prolonged PT/PTT will be evaluated. This will be repeated as he will need vascular access for plasmapheresis to be initiated. Fibrinogen will be checked. He is noted to have decrease in albumin as suspected to be related to kidney loss of protein. He has no overt edema at present. He has had some pleural effusion most recent chest x-ray which may be related to the pulmonary component of Osei's. Mr. Mercado and his family's questions were answered to their satisfaction. Iron studies will be added, although it will be difficult to interpret in light of his elevated C-reactive protein and inflammatory condition. Supportive treatment will continue. We will initiate aspirin therapy after vascular access is established. His questions were answered to his satisfaction. MD CARLI Matta/ /2:31 PM /6:58 PM
[2016-11-18 23:00] LABS: APTT (PATIENT) 35.4 SEC (24.3-30.1); INTERNATIONAL NORMALIZED RATIO 1.2 RATIO; PROTHROMBIN TIME - PATIENT 13.8 SEC (9.8-11.6)
[2016-11-19] VITALS (10 sets, daily range): BP systolic 113–140; BP diastolic 61–78; PULSE 94–114; RESP 16–20; TEMP 97.4–98.5; O2SAT 91–95
[2016-11-19] MEDS: RESP: ALBUTEROL 2.5 MG/IPRATROPIUM 0.5 MG NEB (SCH) NEB ×4 (04:45→22:28)
[2016-11-19] MEDS: HYDROmorphone HCL PF 1 MG/ML VIAL IV PUSH PRN ×5 (04:59→23:21)
[2016-11-19] MEDS: INSULIN ASPART SUPPLEMENTAL SCALE SQ SCH ×4 (05:10→20:54)
[2016-11-19 07:34] LABS: HEMATOCRIT 27.9 % (39.0-51.0); MEAN CELL VOLUME 76.9 FL (80.0-100.0); MEAN CORPUSCULAR HEMOGLOBIN 25.3 PG (27.0-34.0); MEAN CORPUSCULAR HGB CONC 32.9 % (32.0-36.0); PLATELET COUNT 464 TH/MM3 (150-450); RED BLOOD COUNT 3.63 MIL/MM3 (4.50-5.90); RED CELL DISTRIBUTION WIDTH 15.6 % (11.6-17.2); REVIEW FLAG FINAL; WHITE BLOOD COUNT 9.4 TH/MM3 (4.0-11.0)
[2016-11-19 07:59] LABS: BICARBONATE 26.2 MEQ/L (21.0-32.0); POTASSIUM 3.4 MEQ/L (3.5-5.1)
[2016-11-19 08:00] LABS: TOTAL PROTEIN SPE 5.4 GM/DL (6.0-7.6)
[2016-11-19] MEDS: FAMOTIDINE 20 MG TAB PO SCH (08:07)
[2016-11-19] MEDS: NITROGLYCERIN 2% OINT 1 GM PACKET TOPICAL SCH (08:07)
[2016-11-19] MEDS: amLODIPine BESYLATE 5 MG TAB PO SCH (08:07)
[2016-11-19] MEDS: POTASSIUM CHLORIDE 10 MEQ CONTROLLED RELEASE TAB PO SCH ×2 (08:07→20:19)
[2016-11-19] MEDS: SODIUM CHLORIDE 0.9% FLUSH 10 ML FLUSH IV FLUSH SCH ×2 (08:10→20:16)
[2016-11-19] MEDS: methylPREDNISolone SOD SUCC 125 MG/2 ML VIAL IV PUSH SCH (08:10)
[2016-11-19] MEDS: SODIUM CHLOR 0.9% 1000 ML INJ 1,000 ML IV SCH ×3 (10:04→20:14)
[2016-11-19] MEDS: cefTRIAXone INJ 2,000 MG in SODIUM CHLORIDE 0.9% INJ 100 ML IV SCH (10:58)
--- NOTE | 2016-11-19 13:13 | HHI.PR ---
Subjective Remarks f/u for multiple ischemic fingers. He stated he feels a little better today but does not know. Patient stated that appetite has improved. Denies any shortness of breathing or upper respiratory symptoms Patient stated that he is more optimistic now. He continues have pain on his fingers but stated that it's tolerable. Patient has no other complaints today. Objective Vitals Vital Signs Date Time Temp Pulse Resp B/P Pulse Ox O2 Delivery O2 Flow Rate FiO2 11/19/16 09:13 95 Nasal Cannula 2.00 11/19/16 08:10 Nasal Cannula 2.00 11/19/16 08:00 97.9 94 20 115/67 95 11/19/16 04:00 97.7 97 18 123/61 95 11/19/16 00:00 98.5 103 18 113/65 95 11/19/16 00:00 Nasal Cannula 2.00 11/18/16 21:21 92 Nasal Cannula 2.00 11/18/16 20:14 100 11/18/16 20:00 Nasal Cannula 2.00 11/18/16 20:00 97.9 107 18 128/69 95 11/18/16 16:00 98.8 94 20 146/89 91 I/O 11/18/16 11/18/16 11/18/16 11/19/16 11/19/16 11/19/16 07:00 15:00 23:00 07:00 15:00 23:00 Intake Total 480 ml 1295 ml 1061 ml Output Total 400 ml Balance 480 ml 1295 ml 661 ml Intake Oral 480 ml 362 ml 240 ml IV Total 933 ml 821 ml Output Urine Total 400 ml # Voids 2 1 # Bowel Movements 0 1 Result Diagram: 11/19/16 0653 11/19/16 0653 Objective Remarks GENERAL: This is a well-nourished, well-developed patient, in no apparent distress. SKIN: Multiple petechial skin lesion on the sole of the right and left feet more on the right, left tip index finger gangrene, and right fingertips with multiple discoloration. HEAD: Collapsed nose bridge, Normocephalic. EYES: Pupils equal round and reactive. Extraocular motions intact. No scleral icterus. ENT: Nose without bleeding, or drainage, Airway patent. NECK: Trachea midline. Supple CARDIOVASCULAR: Regular rate and rhythm without murmurs, gallops, or rubs. RESPIRATORY: Left basilar area with course crackles. GASTROINTESTINAL: Abdomen soft, non-tender, nondistended. Positive bowel sounds MUSCULOSKELETAL: Extremities without clubbing, cyanosis, or edema. Pedal pulses appreciated NEUROLOGICAL: Awake and alert. Moves all extremity. Normal speech.no focal neurological deficit Procedures none Medications and IVs Current Medications Sodium Chloride (NS Flush) 2 ml UNSCH PRN IVF FLUSH AFTER USING IV ACCESS Last administered on 11/14/16 14:40; Start 11/14/16 at 13:15; Stop 11/14/16 at 19:05; Status DC Morphine Sulfate (Morphine Inj) 2 mg ONCE ONCE IV PUSH Last administered on 13:41; Start 11/14/16 at 13:45; Stop 11/14/16 at 13:46; Status DC Ondansetron HCl 4 mg 4 mg ONCE ONCE IV PUSH Last administered on 11/14/16 13: 41; Start 11/14/16 at 13:45; Stop 11/14/16 at 13:46; Status DC Sodium Chloride (NS 1000 ml Inj) 1,000 ml @ 999 mls/hr BOLUS ONCE IV Last administered on 11/14/16 13:40; Start 11/14/16 at 13:45; Stop 11/14/16 at 14:45; Status DC Potassium Chloride 40 meq 40 meq ONCE ONCE PO Last administered on 11/14/16 15 :01; Start 11/14/16 at 15:00; Stop 11/14/16 at 15:01; Status DC Sodium Chloride (NS 1000 ml Inj) 1,000 ml @ 999 mls/hr BOLUS ONCE IV Last administered on 11/14/16 15:01; Start 11/14/16 at 15:00; Stop 11/14/16 at 16:00; Status DC Morphine Sulfate (Morphine Inj) 2 mg ONCE ONCE IV PUSH ; Start 11/14/16 at 15:00 ; Stop 11/14/16 at 15:00; Status DC Morphine Sulfate 4 mg 4 mg ONCE ONCE IV PUSH Last administered on 11/14/16 15: 02; Start 11/14/16 at 15:00; Stop 11/14/16 at 15:01; Status DC Sodium Chloride 1,000 ml @ 999 mls/hr BOLUS ONCE IV Last administered on 15:19; Start 11/14/16 at 15:15; Stop 11/14/16 at 16:15; Status DC Sodium Chloride 1,000 ml @ 999 mls/hr BOLUS ONCE IV Last administered on 15:20; Start 11/14/16 at 15:15; Stop 11/14/16 at 16:15; Status DC Sodium Chloride 1,000 ml @ 999 mls/hr BOLUS ONCE IV Last administered on 15:40; Start 11/14/16 at 15:15; Stop 11/14/16 at 16:15; Status DC Piperacillin Sod/ Tazobactam Sod 100 ml @ 200 mls/hr ONCE ONCE IV Last administered on 11/14/16 15:19; Start 11/14/16 at 15:15; Stop 11/14/16 at 15:44; Status DC Vancomycin HCl/ Sodium Chloride (Vancomycin Inj/ NS 250 ml Inj) 250 ml @ 250 mls/hr ONCE ONCE IV Last administered on 11/14/16 15:20; Start 11/14/16 at 15: 15; Stop 11/14/16 at 16:14; Status DC Potassium Bicarb/ Potassium Chloride 25 meq 25 meq ONCE ONCE PO Last administered on 11/14/16 17:01; Start 11/14/16 at 16:30; Stop 11/14/16 at 16:31; Status DC Potassium Chloride (KCl 20 Meq Premix Inj) 100 ml @ 50 mls/hr ONCE ONCE IV Last administered on 11/14/16 17:01; Start 11/14/16 at 16:30; Stop 11/14/16 at 18: 29; Status DC Iohexol 100 ml 100 ml STK-MED ONCE IV Last administered on 11/14/16 16:59; Start 11/14/16 at 16:59; Stop 11/14/16 at 17:00; Status DC Sodium Chloride (NS 1000 ml Inj) 1,000 ml @ 100 mls/hr Q10H IV Last administered on 11/19/16 10:04; Start 11/14/16 at 20:00 Sodium Chloride (NS Flush) 2 ml UNSCH PRN IV FLUSH FLUSH AFTER USING IV ACCESS ; Start 11/14/16 at 18:00 Sodium Chloride (NS Flush) 2 ml BID IV FLUSH Last administered on 11/17/16 20: 33; Start 11/14/16 at 21:00 Acetaminophen (Tylenol) 650 mg Q4H PRN PO TEMP > 100.4; Start 11/14/16 at 18:00 Ondansetron HCl (Zofran Inj) 4 mg Q6H PRN IVP NAUSEA OR VOMITING; Start at 18:00 Magnesium Hydroxide 30 ml 30 ml Q12H PRN PO CONSTIPATION; Start 11/14/16 at 18: 00 Piperacillin Sod/ Tazobactam Sod 100 ml @ 200 mls/hr Q6H IV Last administered on 11/15/16 08:53; Start 11/14/16 at 21:00; Stop 11/15/16 at 09:11; Status DC Vancomycin HCl 1250 mg/Sodium Chloride 262.5 ml @ 262.5 mls/ hr Q24H IV ; Start 11/14/16 at 18:00; Status UNV Pharmacy Profile Note 0 ml @ 0 mls/hr UNSCH OTHER ; Start 11/14/16 at 18:00; Stop 11/15/16 at 09:11; Status DC Vancomycin HCl/ Sodium Chloride (Vancomycin Inj/ NS 500 ml Inj) 516 ml @ 250 mls/hr Q12H IV Last administered on 11/15/16 00:16; Start 11/14/16 at 22:00; Stop 11/15/16 at 09:12; Status DC Miscellaneous Information SPECIFIC LAB TO BE MOISÉS... ONCE ONCE .XX ; Start at 09:45; Stop 11/16/16 at 09:46; Status Cancel Amlodipine Besylate (Norvasc) 5 mg DAILY PO Last administered on 11/19/16 08:07 ; Start 11/14/16 at 21:15 Albuterol Sulfate (Ventolin Hfa Inh) 1 puff Q4H PRN INH SHORTNESS OF BREATH Last administered on 11/15/16 00:25; Start 11/14/16 at 21:15 Famotidine (Pepcid) 20 mg BID PO Last administered on 11/19/16 08:07; Start 11/15/16 at 09:00; Stop 11/19/16 at 14:25; Status DC Dextrose (D50w (Vial) Inj) 25 ml UNSCH PRN IV PUSH HYPOGLYCEMIA-SEE COMMENTS; Start 11/14/16 at 21:15 Glucagon (Glucagon Inj) 1 mg UNSCH PRN OTHER HYPOGLYCEMIA-SEE COMMENTS; Start 11/14/16 at 21:15 Insulin Aspart (NovoLOG SUPPLEMENTAL SCALE) 1 ACHS SLIDING SCALE SQ Last administered on 11/19/16 12:09; Start 11/15/16 at 07:00 Hydromorphone HCl (Dilaudid Pf Inj) 0.5 mg Q4H PRN IV PUSH PAIN > 5 Last administered on 11/19/16 14:55; Start 11/14/16 at 21:15 Acetaminophen/ Hydrocodone Bitart ([place] 5-325 Mg) 1 tab Q4H PRN PO PAIN < 5 Last administered on 11/14/16 22:38; Start 11/14/16 at 21:15 Nitroglycerin (Nitro-Dur 0.2 Mg Patch.24 Hr) 1 patch ONCE ONCE T-DERMAL ; Start 11/15/16 at 17:00; Stop 11/15/16 at 17:01; Status Cancel Miscellaneous Information 1 ONCE T-DERMAL ; Start 11/16/16 at 18:00; Stop at 20:00; Status Cancel Iohexol (Omnipaque 350 Inj) 73 ml STK-MED ONCE IV Last administered on 17:01; Start 11/15/16 at 17:01; Stop 11/15/16 at 17:02; Status DC Nitroglycerin (Nitroglycerin 2% Oint) 1 inch DAILY TOPICAL Last administered on 11/19/16 08:07; Start 11/15/16 at 18:21 Lorazepam (Ativan Inj) 1 mg UNSCH X1 PRN IV PRIOR TO MRI Last administered on 10:09; Start 11/16/16 at 08:15; Stop 11/16/16 at 16:00; Status DC Gadodiamide 20 ml 20 ml STK-MED ONCE IV Last administered on 11/16/16 11:16; Start 11/16/16 at 11:16; Stop 11/16/16 at 11:17; Status DC Ceftriaxone Sodium/Sodium Chloride (Rocephin Inj/NS Inj) 100 ml @ 200 mls/hr Q24H IV Last administered on 11/19/16 10:58; Start 11/17/16 at 11:00 Methylprednisolone Sodium Succinate (SoluMEDROL INJ) 125 mg ONCE ONCE IV PUSH Last administered on 11/18/16 13:43; Start 11/18/16 at 12:45; Stop 11/18/16 at 12: 46; Status DC Potassium Chloride (KCl) 30 meq Q12HR PO Last administered on 11/19/16 08:07; Start 11/18/16 at 13:00 Methylprednisolone Sodium Succinate (SoluMEDROL INJ) 60 mg TID IV PUSH Last administered on 11/19/16 08:10; Start 11/18/16 at 18:00; Stop 11/19/16 at 14:09; Status DC Albuterol/ Ipratropium (Duoneb Neb) 1 ampule Q6HR NEB NEB Last administered on 11/19/16 09:12; Start 11/18/16 at 16:00 Albuterol/ Ipratropium (Duoneb Neb) 1 ampule Q2HR NEB PRN NEB SHORTNESS OF BREATH; Start 11/18/16 at 13:45 Iohexol (Omnipaque 350 Inj) 60 ml STK-MED ONCE IV Last administered on 15:10; Start 11/18/16 at 15:10; Stop 11/18/16 at 15:11; Status DC Potassium Chloride 30 meq 30 meq ONCE ONCE PO Last administered on 11/18/16 17 :12; Start 11/18/16 at 15:30; Stop 11/18/16 at 15:31; Status DC Magnesium Sulfate/ Dextrose (Magnesium Sulfate 1 Gm Premix) 100 ml @ 100 mls/ hr ONCE ONCE IV Last administered on 11/18/16 17:12; Start 11/18/16 at 15:30; Stop 11/18/16 at 16:29; Status DC Methylprednisolone Sodium Succinate (SoluMEDROL INJ) 1,000 mg ONCE IV ; Start at 15:00; Stop 11/19/16 at 15:15; Status DC Pantoprazole Sodium (Protonix) 40 mg DAILY PO ; Start 11/19/16 at 14:15 Granisetron HCl 1 mg 1 mg ONCE ONCE IV PUSH ; Start 11/19/16 at 15:00; Stop 11/19 at 15:01; Status DC Cyclophosphamide 1000 mg/Sodium Chloride 500 ml @ 500 mls/hr DAILY@17 ONCE IV ; Start 11/19/16 at 17:00; Stop 11/19/16 at 17:59 Methylprednisolone Sodium Succinate/ Dextrose (SoluMEDROL INJ/ D5W 100 ml Inj) 116 ml @ 116 mls/hr ONCE ONCE IV ; Start 11/19/16 at 16:00; Stop 11/19/16 at 16: 59 A/P Problem List: (1) Gangrene of finger ICD Code: I96 Status: Acute (2) right lower motor neuron palsy Status: Acute Assessment and Plan Bilateral fingers and right foot with ischemic changes left index finger being severe and most likely gangrenous - initially treated empirically for septic embolic disease with IV antibiotics and infectious disease was consulted. Since patient did not display any symptoms of sepsis and was afebrile per infectious disease very highly unlikely that this is an septic emboli. Antibiotics was discontinued. - Hand surgeon and vascular surgeon to be consulted both requesting boating safety officer input for possible vasculitis. - on amlodipine and nitroglycerin for possible Raynaud which did not help with symptoms. - CTA of the left upper extremity which was negative, x-ray of the hand which was also negative. - c-ANCA positive and CRP was elevated at 22.9. 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 Appreciate their assistance and input. -Dealt with Dr. Johnson and Dr. Rincon the phone. Also dealt with Dr. Blount the boating safety officer at [facility] in regards to patient. -Pending results of autoimmune, cold agglutinins,cryoglobulin, hepatitis. So far KRYSTIAN negative, C3-C4 within normal limits, immunoglobulins within normal limits, negative Rh factor, negative anti-myeloperoxidase. -I dealt with Dr. Pineda the boating safety officer at [facility] in which he agreed with the workup and management. He stated to continue with the high dose steroid and hopefully patient will be at [facility] the next [address] Pineda also suggests getting a renal biopsy for definitive diagnosis. Dealt with Dr. Rincon in regards to this case and he also agrees with the renal biopsy. Dr. Rincon stated that if patient is going to be transferred within 24 hours this can be done at there. If not we will proceed with the renal biopsy. -I called the call center at [facility] again to express my concern that patient has not been transfer yet and expressed again this is an emergency due to patient having possibility of losing more fingers. Transfer center personal stated "as I previously stated before patient is listed as emergency for transfer and now he is first on their list." -We will continue with current regimen. Left lower lobe crackles -Patient was asymptomatic, but due to the working diagnosis as above a chest x- ray was obtained. -Chest x-ray suggest pleural effusion. CTA was done which showed no PE. CTA show a possible cardiac cysts in which they recommended outpatient PET CT scan. It also so some infrahilar infiltrate. -Motion Study Technician following. -Patient is Rocephin. 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 - CT scan of the head was done which was negative. -MRI showed sinusitis. - Apply eye patch during the night along with eye ointment at night. - An echo was done which was negative. Sinusitis -Patient on Rocephin. -I also tried to contact Dr. Chapa patient's ENT physician in regards to his previous workup. DVT prophylaxis -SCDs. Discharge Planning Per [facility] transfer center patient is first on the list to be transfer. Danna Juarez MD Nov 19, 2016 13:13
--- NOTE | 2016-11-19 13:21 | HHI.PR ---
Subjective Remarks No change in symptoms keeping the hands warm On calcium channel blockers and nitro paste waiting for bed at [facility] for transfer patient started on steroids Objective Vital Signs Date Time Temp Pulse Resp B/P Pulse Ox O2 Delivery O2 Flow Rate FiO2 11/19/16 09:13 95 Nasal Cannula 2.00 11/19/16 08:10 Nasal Cannula 2.00 11/19/16 08:00 97.9 94 20 115/67 95 11/19/16 04:00 97.7 97 18 123/61 95 11/19/16 00:00 98.5 103 18 113/65 95 11/19/16 00:00 Nasal Cannula 2.00 11/18/16 21:21 92 Nasal Cannula 2.00 11/18/16 20:14 100 11/18/16 20:00 Nasal Cannula 2.00 11/18/16 20:00 97.9 107 18 128/69 95 11/18/16 16:00 98.8 94 20 146/89 91 I/O 11/18/16 11/18/16 11/18/16 11/19/16 11/19/16 11/19/16 07:00 15:00 23:00 07:00 15:00 23:00 Intake Total 480 ml 1295 ml 1061 ml Output Total 400 ml Balance 480 ml 1295 ml 661 ml Intake Oral 480 ml 362 ml 240 ml IV Total 933 ml 821 ml Output Urine Total 400 ml # Voids 2 1 # Bowel Movements 0 1 bilateral hands; necrotic left index finger from middle phalanx region distally mild purplish discoloration of the middle finger rest of the fingers look pink with decreased capillary refill Result Diagram: 11/19/16 0653 11/19/16 0653 Assessment and Plan Assessment and Plan 51 year old male with diabetes and ischemic fingers likely vasculitis vs emboli Plan; Left index finger gangrenous from mid phalanx region. Palmar arches not visible on CTA with smooth tapering of the ulnar artery from midforearm, weak signals on hand held doppler, bilaterality suggests patient having Raynaud's phenomenon, vasculitis or emboli vs blockage angiogram of the upper extremity would better delineate the vascular anatomy for possible reconstruction depending on the findings. planning for transfer to [facility], waiting for bed continue keeping the hands warm nitro paste application to the palm of the hands and base of the fingers continue calcium channel blockers Seymour Huitron MD Nov 19, 2016 13:21
--- NOTE | 2016-11-19 14:11 | PD.ONC.PN ---
Subjective Subjective Remarks Afebrile overnight. Pt resting in bed watching TV with visitors at bedside. He states the pain in his L finger is worse today. Objective Data Date Time Temp Pulse Resp B/P Pulse Ox O2 Delivery O2 Flow Rate FiO2 11/19/16 09:13 95 Nasal Cannula 2.00 11/19/16 08:10 Nasal Cannula 2.00 11/19/16 08:00 97.9 94 20 115/67 95 11/19/16 04:00 97.7 97 18 123/61 95 11/19/16 00:00 98.5 103 18 113/65 95 11/19/16 00:00 Nasal Cannula 2.00 11/18/16 21:21 92 Nasal Cannula 2.00 11/18/16 20:14 100 11/18/16 20:00 Nasal Cannula 2.00 11/18/16 20:00 97.9 107 18 128/69 95 11/18/16 16:00 98.8 94 20 146/89 91 11/19/16 11/19/16 11/19/16 07:00 15:00 23:00 Intake Total 1061 ml Output Total 400 ml Balance 661 ml Result Diagram: 11/19/16 0653 11/19/16 0653 Laboratory Results Laboratory Tests Test 11/18/16 11/18/16 11/19/16 17:00 21:09 06:53 Urine Color YELLOW Urine Turbidity CLEAR Urine pH 6.5 Urine Specific Notrees GREATER THAN 1.050 Urine Protein 30 mg/dL Urine Glucose (UA) NEG mg/dL Urine Ketones 80 mg/dL Urine Occult Blood LARGE Urine Nitrite NEG Urine Bilirubin NEG Urine Urobilinogen LESS THAN 2.0 MG/DL Urine Leukocyte Esterase NEG Urine RBC 86 /hpf Urine WBC 23 /hpf Urine Mucus FEW /lpf Urine Yeast (Budding) OCC Microscopic Urinalysis Comment Prothrombin Time 13.8 SEC Prothromb Time International 1.2 RATIO Ratio Activated Partial 35.4 SEC Thromboplast Time Fibrinogen 541 mg/dL White Blood Count 9.4 TH/MM3 Red Blood Count 3.63 MIL/MM3 Hemoglobin 9.2 GM/DL Hematocrit 27.9 % Mean Corpuscular Volume 76.9 FL Mean Corpuscular Hemoglobin 25.3 PG Mean Corpuscular Hemoglobin 32.9 % Concent Red Cell Distribution Width 15.6 % Platelet Count 464 TH/MM3 Mean Platelet Volume 6.8 FL Sodium Level 137 MEQ/L Potassium Level 3.4 MEQ/L Chloride Level 101 MEQ/L Carbon Dioxide Level 26.2 MEQ/L Anion Gap 10 MEQ/L Blood Urea Nitrogen 8 MG/DL Creatinine 0.43 MG/DL Estimat Glomerular Filtration 210 ML/MIN Rate Random Glucose 308 MG/DL Calcium Level 8.2 MG/DL Magnesium Level 2.0 MG/DL C-Reactive Protein 22.60 MG/DL Total Protein 5.4 GM/DL Immunoglobulin G Total 964 MG/DL Immunoglobulin A 415 MG/DL Immunoglobulin M 175 MG/DL Culture Results Microbiology Date/Time Procedure Status Source Growth 11/17/16 11:53 Aerobic Blood Culture - Preliminary Resulted Blood Peripheral NO GROWTH IN 2 DAYS 11/17/16 11:53 Anaerobic Blood Culture - Preliminary Resulted Blood Peripheral NO GROWTH IN 2 DAYS 11/17/16 12:06 Aerobic Blood Culture - Preliminary Resulted Blood Peripheral NO GROWTH IN 2 DAYS 11/17/16 12:06 Anaerobic Blood Culture - Preliminary Resulted Blood Peripheral NO GROWTH IN 2 DAYS Imaging Studies Last [address] 11/18/16 Signed Impressions: Service Date/Time: Friday, November 18, 2016 14:53 - CONCLUSION: 1. There is evidence of previous nasal sinus surgery. 2. There is diffuse bilateral pansinusitis as noted above. 3. No air-fluid levels are seen at this time. Indra Harris MD Chest X-Ray 11/18/16 Signed Impressions: Service Date/Time: Friday, November 18, 2016 08:20 - CONCLUSION: New large left-sided pleural effusion with overlying atelectasis. Ilana Shepherd MD CT Angiography 11/18/16 Signed Impressions: Service Date/Time: Friday, November 18, 2016 15:00 - CONCLUSION: 1. No evidence of pulmonary embolism. 2. 1.8 cm well-defined density in the right cardiophrenic angle. Density measurements suggest this is probably a pericardial cyst. However, for conservative management I would recommend a PET CT on a nonemergent outpatient basis to exclude any focal hypermetabolic activity. 3. Increased parenchymal changes in the hilar areas bilaterally. Perihilar infiltrates versus adenopathy are the considerations. 4. Very small left pleural effusion with left lower lung atelectasis. Indra Harris MD Administered Medications Medications (Trade) Dose Ordered Sig/Aravind Route PRN Reason Start Time Stop Time Status Last Admin Dose Admin Sodium Chloride (NS 1000 ml Inj) 1,000 ml @ 100 mls/hr Q10H IV 11/14/16 20:00 11/19/16 10:04 Sodium Chloride (NS Flush) 2 ml BID IV FLUSH 11/14/16 21:00 11/17/16 20:33 Amlodipine Besylate (Norvasc) 5 mg DAILY PO 11/14/16 21:15 11/19/16 08:07 Albuterol Sulfate (Ventolin Hfa Inh) 1 puff Q4H PRN INH SHORTNESS OF BREATH 11/14/16 21:15 11/15/16 00:25 Famotidine (Pepcid) 20 mg BID PO 11/15/16 09:00 11/19/16 08:07 Hydromorphone HCl (Dilaudid Pf Inj) 0.5 mg Q4H PRN IV PUSH PAIN > 5 11/14/16 21:15 11/19/16 09:13 Acetaminophen/ Hydrocodone Bitart (Mears 5-325 Mg) 1 tab Q4H PRN PO PAIN < 5 11/14/16 21:15 11/14/16 22:38 Nitroglycerin 1 inch 1 inch DAILY TOPICAL 11/15/16 18:21 11/19/16 08:07 Ceftriaxone Sodium/Sodium Chloride (Rocephin Inj/NS Inj) 100 ml @ 200 mls/hr Q24H IV 11/17/16 11:00 11/19/16 10:58 Potassium Chloride (KCl) 30 meq Q12HR PO 11/18/16 13:00 11/19/16 08:07 Methylprednisolone Sodium Succinate (SoluMEDROL INJ) 60 mg TID IV PUSH 11/18/16 18:00 11/19/16 08:10 Objective Remarks GENERAL: Middle aged male sitting up in bed in no distress. SKIN: Warm and dry. L 1st finger necrotic. R hand digits with discoloration to multiple fingers. HEAD: Normocephalic. EYES: No injection or drainage. NECK: Supple, trachea midline. CARDIOVASCULAR: +S1/S2. RESPIRATORY: No accessory muscle use. GASTROINTESTINAL: Abdomen soft, non-tender, nondistended. EXTREMITIES: No BLE edema. NEUROLOGICAL: No obvious focal deficit. Awake, alert, and oriented x3. Assessment/Plan Problem List: (1) Small vessel vasculitis Status: Acute Plan: -- ANCA positive small vessel vasculitis -- Dr Garcia discussed over the phone with Dr. Strickland. -- Evidence for end organ damage. Assessment 51 y/o male who presents to the hospital with discoloration of fingertip for the past 2-[address] Garcia spoke with local supervisor evaporator Dr Strickland over the phone. 2. Plan for Cytoxan 1gm today, with 3 doses of IV solumedrol. 3. Will possibly plan to do plasma pheresis after this is complete. 4. Supportive care. Attending Statement The exam, history, and the medical decision-making described in the above note were completed with the assistance of the mid-level provider. I reviewed and agree with the findings presented. I attest that I had a [id number] encounter with the patient on the same day, and personally performed and documented my assessment and findings in the medical record. Pt seen and examined. Left first finger looks worse with more erythema and necrotic tip. R first finger and thumb have increase mottling. No hemoptysis. Noted results of CT scan, reviewed with Dr. Johnson and Discussed w/ Dr. Woody. Case discussed with rheumatology , who will see pt tomorrow. Given the problem on hand and digits are risk we discussed plans for immunosuppression. Agree to proceed with Solumedrol x 1gm IV x3 days and Cytoxan x 1 gm today. Discussed risk and benefit of tx with patient, who agree, understanding that transfer to [facility] still pending. Discussed role of plasma pheresis deferred pending response to above treatment. Supportive care continue. Swetha Redman Nov 19, 2016 14:11 Danielle Garcia MD Nov 19, 2016 17:08
[2016-11-19] MEDS ORDERED: methylPREDNISolone SOD SUCC 125 MG/2 ML VIAL IV SCH (15:00)
[2016-11-19] MEDS ORDERED: GRANISETRON HCL 1 MG/ML VIAL IV PUSH ONE (15:00)
[2016-11-19] MEDS: PANTOPRAZOLE SOD 40 MG DELAYED RELEASE TAB PO SCH (15:46)
[2016-11-19] MEDS ORDERED: methylPREDNISolone SO SUCC INJ 1,000 MG in DEXTROSE 5% IN WATER 100ML INJ 100 ML IV ONE ×2 (16:00)
[2016-11-19] MEDS ORDERED: SODIUM CHLORID 0.9% IV ONE (17:00)
[2016-11-19] MEDS ORDERED: CYCLOPHOSPHAMIDE IV ONE (17:00)
--- NOTE | 2016-11-19 17:29 | MB ---
cc: KEI BROUSSARD MD DATE OF CONSULTATION 11/19/16 REASON FOR CONSULTATION Vasculitis and GN evaluation. HISTORY OF PRESENT ILLNESS This is a 51-year-old male with history of diabetes and recent Akins's palsy. He apparently has had recurrent sinus infections for several months. He presented on November 14 for admission with discoloration and apparent gangrene of his left index finger. He was also found to have the lesions at his right-hand and as well as his left foot. Extensive workup was evaluated with multiple specialties here including angiogram studies of the arm and infectious disease was also consulted. There are no infectious etiologies ascertained from this and per evaluation with vascular as well as Heme/Onc the patient had apparent findings of vasculitis with small vessel vasculitis. 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 The patient also had findings of a pleural effusion and given these multiorgan systemic findings vasculitis has been given a stronger concern for his diagnosis. Regarding his renal function his creatinine is actually stable at 0.4, however, his urinalysis has showed consistent proteinuria with 30 protein and 80 RBCs in the urine now. A 24-hour urine collection is being started. Given the suspected diagnosis of vasculitis with Osei's disease the patient has been empirically started with Solu-Medrol as well as Cytoxan and the plan is for eventual plasmapheresis. The patient is pending transfer to [facility] at this time as we do not have rheumatology in house here and nephrology was consulted for further evaluation for consideration of renal biopsy with a concern for any possible GN secondary to vasculitis. At this point the patient is resting in bed. He does have facemask oxygen, here for some ongoing soreness and fatigue, however, no other complaints otherwise. Nephrology was consulted for further evaluation. PAST MEDICAL HISTORY Past medical history includes diabetes, Akins's palsy, recurrent sinus infections. PAST SURGICAL HISTORY Includes sinus surgery. MEDICATIONS AT HOME Include: 1. Zantac. 2. Albuterol. 3. Glampiermide. 4. Metformin. ALLERGIES NO KNOWN DRUG ALLERGIES. SOCIAL HISTORY No alcohol, tobacco or drug use. FAMILY HISTORY No reported history of renal disease or cancers. PHYSICAL EXAMINATION VITAL SIGNS: At time of evaluation blood pressure 115/67, pulse 94, respiratory rate 20, temperature 97.9. GENERAL: Awake, alert, oriented. HEENT: Neck soft, supple. CARDIAC: Regular rate and rhythm. PULMONARY: Decreased breath sounds at bases. ABDOMEN: Soft, nontender, nondistended. EXTREMITIES: The patient with left first finger necrosis, right hand digits with discoloration of multiple fingers. LABORATORY FINDINGS White count 9.4, hemoglobin 9.2, hematocrit 27.9 with platelet count of 464, sodium 137, potassium 3.4, chloride 101, bicarb 26.2, BUN 8, creatinine 0.4 with glucose of 308. CRP was 22. Tox screen negative. Urinalysis with 30 protein, 80 ketones, 86 RBCs, 23 WBCs, few mucus seen, occasional yeast. Apparent positive ANCA with positive anti-proteinase 3; C3 122, C4 22. ASSESSMENT/PLAN PROBLEM #1 Vasculitis: The patient has a presumptive diagnosis of Osei's vasculitis with positive c-ANCA. At this point there is a question of any renal involvement and there are red blood cells present in the urine. He has multiple systemic issues including gangrene at the digits on his left hand, discoloration on his right hand with recent pleural effusions. I do suspect there may be a vasculitis process going on with some possible renal involvement. Nephrology was consulted for further evaluation of possible renal biopsy. I do agree that a renal biopsy would be warranted at this point, however, there is a plan for possible transfer to [facility] within the next 24 hours. Given possible transfer, will defer actual biopsy at this point as ideally we would not mobilize the patient in transport from one hospital to another immediately post renal biopsy. Apparently, the patient is a priority for transfer to [facility]. If the patient is still here tomorrow may consider for renal biopsy on Sunday as tissue diagnosis for treatment will be helpful. At this point his renal function is otherwise stable with the stable creatinine. The patient is voiding on his own and has a 24-hour urine collection being processed at this point. Agree with empiric Cytoxan and steroids and possible plasmapheresis at this time. Continue follow up with Heme/Onc service pending potential transfer to [facility]. Kei Broussard MD DVP/EO /4:15 PM /5:09 PM ROSIBEL
[2016-11-20] VITALS (7 sets, daily range): BP systolic 139–147; BP diastolic 72–96; PULSE 65–96; RESP 18–20; TEMP 96.9–98.4; O2SAT 93–95
[2016-11-20 02:26] LABS: CREAT 24 TIMED 57.7 MG/DL; URINE TOTAL PROTEIN TIMED 88.9 MG/DL
[2016-11-20] MEDS: RESP: ALBUTEROL 2.5 MG/IPRATROPIUM 0.5 MG NEB (SCH) NEB ×3 (03:42→16:27)
[2016-11-20 03:59] LABS: MAGNESIUM 2.1 MG/DL (1.5-2.5); POTASSIUM 3.8 MEQ/L (3.5-5.1)
[2016-11-20] MEDS: HYDROmorphone HCL PF 1 MG/ML VIAL IV PUSH PRN ×3 (04:10→17:39)
[2016-11-20] MEDS: SODIUM CHLOR 0.9% 1000 ML INJ 1,000 ML IV SCH (06:13)
[2016-11-20] MEDS: INSULIN ASPART SUPPLEMENTAL SCALE SQ SCH ×2 (06:14→11:51)
[2016-11-20] MEDS: PANTOPRAZOLE SOD 40 MG DELAYED RELEASE TAB PO SCH (09:42)
[2016-11-20] MEDS: POTASSIUM CHLORIDE 10 MEQ CONTROLLED RELEASE TAB PO SCH (09:43)
[2016-11-20] MEDS: amLODIPine BESYLATE 5 MG TAB PO SCH (09:43)
[2016-11-20] MEDS: SODIUM CHLORIDE 0.9% FLUSH 10 ML FLUSH IV FLUSH SCH (09:43)
[2016-11-20] MEDS: NITROGLYCERIN 2% OINT 1 GM PACKET TOPICAL SCH (09:43)
--- NOTE | 2016-11-20 09:51 | HHI.NPPN ---
Subjective General Problems: Anemia Interval History Having more hand pain. On IVF. Possible transfer to [facility] today. Renal function is stable. (Tiffanie Mills) Review of Systems Skin Skin: Lesions, Ulcers (Tiffanie Mills) Objective Data Data 11/19/16 11/20/16 19:00 07:00 Intake Total 2980 ml Output Total 1100 ml Balance 1880 ml Intake Oral 980 ml IV Total 2000 ml Output Urine Total 1100 ml # Bowel Movements 0 Vital Signs Date Time Temp Pulse Resp B/P Pulse Ox O2 Delivery O2 Flow Rate FiO2 11/20/16 08:00 98.0 65 20 147/72 93 11/20/16 04:32 96 11/20/16 04:00 96.9 88 19 139/85 93 11/20/16 01:34 88 11/19/16 23:30 98.2 100 17 120/70 94 11/19/16 22:28 93 Nasal Cannula 2.00 11/19/16 21:10 93 11/19/16 20:49 95 11/19/16 20:30 93 Nasal Cannula 2.50 11/19/16 20:00 97.4 110 16 138/72 91 11/19/16 17:30 93 Nasal Cannula 2.50 11/19/16 17:30 97.5 114 20 140/78 92 (Tiffanie Mills) -: 11/19/16 0653 11/20/16 0318 Imaging Last [address] 11/18/16 0000 Signed Impressions: Service Date/Time: Friday, November 18, 2016 14:53 - CONCLUSION: 1. There is evidence of previous nasal sinus surgery. 2. There is diffuse bilateral pansinusitis as noted above. 3. No air-fluid levels are seen at this time. Indra Harris MD Chest X-Ray 11/18/16 0000 Signed Impressions: Service Date/Time: Friday, November 18, 2016 08:20 - CONCLUSION: New large left-sided pleural effusion with overlying atelectasis. Ilana Shepherd MD CT Angiography 11/18/16 0000 Signed Impressions: Service Date/Time: Friday, November 18, 2016 15:00 - CONCLUSION: 1. No evidence of pulmonary embolism. 2. 1.8 cm well-defined density in the right cardiophrenic angle. Density measurements suggest this is probably a pericardial cyst. However, for conservative management I would recommend a PET CT on a nonemergent outpatient basis to exclude any focal hypermetabolic activity. 3. Increased parenchymal changes in the hilar areas bilaterally. Perihilar infiltrates versus adenopathy are the considerations. 4. Very small left pleural effusion with left lower lung atelectasis. Indra Harris MD (Tiffanie Mills) Physical Exam General Appearance: Well Developed, Comfortable (Tiffanie Mills) Eyes Eye Exam: Pupils Equal (Tiffanie Mills) Throat Throat Exam: Oral Mucosa Keller & Moist (Tiffanie Mills) Pulmonary Resp Exam: Clear Bilaterally, Breath Sounds Equal (Tiffanie Mills) Cardiology CV Exam: Regular, Normal Sinus Rhythm, Good Perfusion (Tiffanie Mills) Gastrointestinal/Abdomen GI Exam: Soft, Non-Tender, Bowel Sounds Present (Tiffanie Mills) Musculoskeletal MS Exam: Joints Intact, Normal Tone (Tiffanie Mills) Integumentary Skin Exam: Warm, Dry Skin Remarks right finger necrosis; left hand edematous (Tiffanie Mills) Extremeties Extremities Exam: Pedal Pulses Palpable (Tiffanie Mills) Neurologic Neuro Exam: Alert, Awake, Oriented, Speech Clear, Moving All Extremities ( Tiffanie Mills) Assessment/Plan Discussed Condition With: Patient Electrolyte Assessment: Hypokalemia Problem List: (1) ANCA-positive vasculitis Plan: with apparent normal renal function CRP elevated he was given 3 days of solumedrol, started on Cytoxan pending [facility] transfer for rheumatology evaluation may need biopsy if still admitted this week to evaluate for renal involvement at this time continue IVF and present management reevaluate renal function in the morning (2) Gangrene of finger Plan: due to above vascular following, appreciate recommendations (3) Hypokalemia Plan: replaced, follow up BMP (Tiffanie Mills) Plan Findings consistent with ANCA positive Vasculitis. Renal function is well preserved so far, but he has abnormal UA, has proteinuria. He has been placed on Cytoxan and steroid. Consider biopsy of the nasal mucosa: may reveal granulomas and findings of vasculitis. (Refugio Fisher MD) Tiffanie Mills [facility] Nov 20, 2016 09:51 Refugio Fisher MD Nov 20, 2016 11:07
--- NOTE | 2016-11-20 11:20 | HHI.PR ---
Subjective Remarks No change in symptoms keeping the hands warm On calcium channel blockers and nitro paste waiting for bed at [facility] for transfer patient started on steroids and cyclophosphamide Objective Vital Signs Date Time Temp Pulse Resp B/P Pulse Ox O2 Delivery O2 Flow Rate FiO2 11/20/16 09:55 94 Nasal Cannula 2.00 11/20/16 08:00 98.0 65 20 147/72 93 11/20/16 04:32 96 11/20/16 04:00 96.9 88 19 139/85 93 11/20/16 01:34 88 11/19/16 23:30 98.2 100 17 120/70 94 11/19/16 22:28 93 Nasal Cannula 2.00 11/19/16 21:10 93 11/19/16 20:49 95 11/19/16 20:30 93 Nasal Cannula 2.50 11/19/16 20:00 97.4 110 16 138/72 91 11/19/16 17:30 93 Nasal Cannula 2.50 11/19/16 17:30 97.5 114 20 140/78 92 I/O 11/19/16 11/19/16 11/19/16 11/20/16 11/20/16 11/20/16 07:00 15:00 23:00 07:00 15:00 23:00 Intake Total 1061 ml 1705 ml 1275 ml Output Total 400 ml 500 ml 600 ml Balance 661 ml 1205 ml 675 ml Intake Oral 240 ml 480 ml 500 ml IV Total 821 ml 1225 ml 775 ml Output Urine Total 400 ml 500 ml 600 ml # Voids 1 # Bowel Movements 0 bilateral hand: gangrenous left index finger tip purplish, pale finger tips finger tips are warm decreased capillary refill Result Diagram: 11/19/16 0653 11/20/16 0318 Assessment and Plan Assessment and Plan 51 year old male with diabetes and ischemic fingers likely vasculitis vs emboli vs blockage Plan; Left index finger gangrenous from mid phalanx region. Palmar arches not visible on CTA with smooth tapering of the ulnar artery from midforearm, weak signals on hand held doppler, bilaterality suggests patient having Raynaud's phenomenon, vasculitis or emboli vs blockage Patient will need angiogram for vascular anatomy and possible reconstruction both upper extremities planning for transfer to [facility], waiting for bed continue keeping the hands warm nitro paste application to the palm of the hands and base of the fingers twice daily if the patient can tolerate continue calcium channel blockers Seymour Huitron MD Nov 20, 2016 11:20
[2016-11-20] MEDS: cefTRIAXone INJ 2,000 MG in SODIUM CHLORIDE 0.9% INJ 100 ML IV SCH (11:52)
--- NOTE | 2016-11-20 15:12 | PD.ONC.PN ---
Subjective Subjective Remarks Afebrile overnight. Patient resting comfortably without complaint. Objective Data Date Time Temp Pulse Resp B/P Pulse Ox O2 Delivery O2 Flow Rate FiO2 11/20/16 12:00 98.4 85 20 145/72 95 11/20/16 09:55 94 Nasal Cannula 2.00 11/20/16 09:35 Nasal Cannula 2.00 11/20/16 08:00 98.0 65 20 147/72 93 11/20/16 04:32 96 11/20/16 04:00 96.9 88 19 139/85 93 11/20/16 01:34 88 11/19/16 23:30 98.2 100 17 120/70 94 11/19/16 22:28 93 Nasal Cannula 2.00 11/19/16 21:10 93 11/19/16 20:49 95 11/19/16 20:30 93 Nasal Cannula 2.50 11/19/16 20:00 97.4 110 16 138/72 91 11/19/16 17:30 93 Nasal Cannula 2.50 11/19/16 17:30 97.5 114 20 140/78 92 Result Diagram: 11/19/16 0653 11/20/16 0318 Laboratory Results Laboratory Tests Test 11/19/16 11/20/16 16:45 03:18 Urine Total Volume 24 Hours 1200 ML Urine Creatinine 24 Hour 0.69 GM/24HR Urine Total Protein 24 Hour 1067 MG/24HR Potassium Level 3.8 MEQ/L Magnesium Level 2.1 MG/DL Administered Medications Medications (Trade) Dose Ordered Sig/Aravind Route PRN Reason Start Time Stop Time Status Last Admin Dose Admin Sodium Chloride (NS 1000 ml Inj) 1,000 ml @ 100 mls/hr Q10H IV 11/14/16 20:00 11/20/16 06:13 Sodium Chloride (NS Flush) 2 ml UNSCH PRN IV FLUSH FLUSH AFTER USING IV ACCESS 11/14/16 18:00 11/19/16 22:33 Sodium Chloride (NS Flush) 2 ml BID IV FLUSH 11/14/16 21:00 11/20/16 09:43 Amlodipine Besylate (Norvasc) 5 mg DAILY PO 11/14/16 21:15 11/20/16 09:43 Albuterol Sulfate (Ventolin Hfa Inh) 1 puff Q4H PRN INH SHORTNESS OF BREATH 11/14/16 21:15 11/15/16 00:25 Hydromorphone HCl (Dilaudid Pf Inj) 0.5 mg Q4H PRN IV PUSH PAIN > 5 11/14/16 21:15 11/20/16 10:08 Acetaminophen/ Hydrocodone Bitart 1 tab 1 tab Q4H PRN PO PAIN < 5 11/14/16 21:15 11/14/16 22:38 Ceftriaxone Sodium/Sodium Chloride (Rocephin Inj/NS Inj) 100 ml @ 200 mls/hr Q24H IV 11/17/16 11:00 11/20/16 11:52 Potassium Chloride (KCl) 30 meq Q12HR PO 11/18/16 13:00 11/20/16 09:43 Pantoprazole Sodium (Protonix) 40 mg DAILY PO 11/19/16 14:15 11/20/16 09:42 Objective Remarks GENERAL: Middle aged male, sitting up in bed in NAD SKIN: Warm and dry. HEAD: Normocephalic. EYES: No injection or drainage. NECK: Supple, trachea midline. CARDIOVASCULAR: Regular rate and rhythm RESPIRATORY: Breath sounds equal bilaterally. No accessory muscle use. GASTROINTESTINAL: Abdomen soft, non-tender, nondistended. EXTREMITIES: No cyanosis NEUROLOGICAL: awake and alert, normal speech. moving all extremities. Assessment/Plan Problem List: (1) Small vessel vasculitis Status: Acute Plan: -- ANCA positive small vessel vasculitis -- Dr Garcia discussed over the phone with Dr. Strickland. -- Evidence of end organ damage. Assessment 51 y/o male who presents to the hospital with discoloration of fingertip for the past 2-3 weeks Plan 1. monitor blood counts 2. supportive care 3. Dr. Strickland will see the patient this evening after clinic Attending Statement The exam, history, and the medical decision-making described in the above note were completed with the assistance of the mid-level provider. I reviewed and agree with the findings presented. I attest that I had a [id number] encounter with the patient on the same day, and personally performed and documented my assessment and findings in the medical record. Pt seen and examined in AM. Akins's palsy unchanged. Tolerated Solumedrol and Cytoxan. Denies nausea or vomiting. No change in R hand with mottling worsen on other fingers. L hand first digit still necrotic but appear to be less swollen. Nephrology consult appreciated. Pending consult with Dr. Strickland his afternoon. Transfer to [facility] still pending bed. Kylah Graff Nov 20, 2016 15:12 Danielle Garcia MD Nov 20, 2016 22:13
--- NOTE | 2016-11-20 15:36 | HHI.PR ---
Subjective Remarks Follow-up for bilateral finger tips ischemia Patient stated that he feels like he is the same. He does not feel like it has worsened. Patient asking if he can have SCDs off intermittently because his legs are sweating profusely. Patient also asked that his brother Misha be the vault person. Patient still very anxious about the transfer. When I told patient that he should consider a renal biopsy tomorrow if he still here he stated that he would like to hold off if he does not want this to delay his transfer. Patient brother asked if is possible for patient to be transferred to [place] if he can get someone to accept the patient. Patient also asked about the nitroglycerin and stated that Dr. Dunlap told him that dosage was increased but he was told by the nurse that it is the same. He asked me to look into this. Patient's mother and brother at the bedside. Objective Vitals Vital Signs Date Time Temp Pulse Resp B/P Pulse Ox O2 Delivery O2 Flow Rate FiO2 11/20/16 12:00 98.4 85 20 145/72 95 11/20/16 09:55 94 Nasal Cannula 2.00 11/20/16 09:35 Nasal Cannula 2.00 11/20/16 08:00 98.0 65 20 147/72 93 11/20/16 04:32 96 11/20/16 04:00 96.9 88 19 139/85 93 11/20/16 01:34 88 11/19/16 23:30 98.2 100 17 120/70 94 11/19/16 22:28 93 Nasal Cannula 2.00 11/19/16 21:10 93 11/19/16 20:49 95 11/19/16 20:30 93 Nasal Cannula 2.50 11/19/16 20:00 97.4 110 16 138/72 91 11/19/16 17:30 93 Nasal Cannula 2.50 11/19/16 17:30 97.5 114 20 140/78 92 I/O 11/19/16 11/19/16 11/19/16 11/20/16 11/20/16 11/20/16 07:00 15:00 23:00 07:00 15:00 23:00 Intake Total 1061 ml 1705 ml 1275 ml Output Total 400 ml 500 ml 600 ml Balance 661 ml 1205 ml 675 ml Intake Oral 240 ml 480 ml 500 ml IV Total 821 ml 1225 ml 775 ml Output Urine Total 400 ml 500 ml 600 ml # Voids 1 # Bowel Movements 0 Result Diagram: 11/19/16 0653 11/20/16 0318 Objective Remarks GENERAL: This is a well-nourished, well-developed patient, in no apparent distress. SKIN: Multiple petechial skin lesion on the sole of the right and left feet more on the right, left tip index finger gangrene, and right fingertips with multiple discoloration. some left finger tips with discoloration too. HEAD: Collapsed nose bridge, Normocephalic. EYES: Pupils equal round and reactive. Extraocular motions intact. No scleral icterus. ENT: Nose without bleeding, or drainage, Airway patent. NECK: Trachea midline. Supple CARDIOVASCULAR: Regular rate and rhythm without murmurs, gallops, or rubs. RESPIRATORY: Left basilar area with course crackles. GASTROINTESTINAL: Abdomen soft, non-tender, nondistended. Positive bowel sounds MUSCULOSKELETAL: Extremities without clubbing, cyanosis, or edema. Pedal pulses appreciated NEUROLOGICAL: Awake and alert. Moves all extremity. Normal speech.no focal neurological deficit Procedures none Medications and IVs Current Medications Sodium Chloride (NS Flush) 2 ml UNSCH PRN IVF FLUSH AFTER USING IV ACCESS Last administered on 11/14/16 14:40; Start 11/14/16 at 13:15; Stop 11/14/16 at 19:05; Status DC Morphine Sulfate (Morphine Inj) 2 mg ONCE ONCE IV PUSH Last administered on 13:41; Start 11/14/16 at 13:45; Stop 11/14/16 at 13:46; Status DC Ondansetron HCl 4 mg 4 mg ONCE ONCE IV PUSH Last administered on 11/14/16 13: 41; Start 11/14/16 at 13:45; Stop 11/14/16 at 13:46; Status DC Sodium Chloride (NS 1000 ml Inj) 1,000 ml @ 999 mls/hr BOLUS ONCE IV Last administered on 11/14/16 13:40; Start 11/14/16 at 13:45; Stop 11/14/16 at 14:45; Status DC Potassium Chloride 40 meq 40 meq ONCE ONCE PO Last administered on 11/14/16 15 :01; Start 11/14/16 at 15:00; Stop 11/14/16 at 15:01; Status DC Sodium Chloride (NS 1000 ml Inj) 1,000 ml @ 999 mls/hr BOLUS ONCE IV Last administered on 11/14/16 15:01; Start 11/14/16 at 15:00; Stop 11/14/16 at 16:00; Status DC Morphine Sulfate (Morphine Inj) 2 mg ONCE ONCE IV PUSH ; Start 11/14/16 at 15:00 ; Stop 11/14/16 at 15:00; Status DC Morphine Sulfate 4 mg 4 mg ONCE ONCE IV PUSH Last administered on 11/14/16 15: 02; Start 11/14/16 at 15:00; Stop 11/14/16 at 15:01; Status DC Sodium Chloride 1,000 ml @ 999 mls/hr BOLUS ONCE IV Last administered on 15:19; Start 11/14/16 at 15:15; Stop 11/14/16 at 16:15; Status DC Sodium Chloride 1,000 ml @ 999 mls/hr BOLUS ONCE IV Last administered on 15:20; Start 11/14/16 at 15:15; Stop 11/14/16 at 16:15; Status DC Sodium Chloride 1,000 ml @ 999 mls/hr BOLUS ONCE IV Last administered on 15:40; Start 11/14/16 at 15:15; Stop 11/14/16 at 16:15; Status DC Piperacillin Sod/ Tazobactam Sod 100 ml @ 200 mls/hr ONCE ONCE IV Last administered on 11/14/16 15:19; Start 11/14/16 at 15:15; Stop 11/14/16 at 15:44; Status DC Vancomycin HCl/ Sodium Chloride (Vancomycin Inj/ NS 250 ml Inj) 250 ml @ 250 mls/hr ONCE ONCE IV Last administered on 11/14/16 15:20; Start 11/14/16 at 15: 15; Stop 11/14/16 at 16:14; Status DC Potassium Bicarb/ Potassium Chloride 25 meq 25 meq ONCE ONCE PO Last administered on 11/14/16 17:01; Start 11/14/16 at 16:30; Stop 11/14/16 at 16:31; Status DC Potassium Chloride (KCl 20 Meq Premix Inj) 100 ml @ 50 mls/hr ONCE ONCE IV Last administered on 11/14/16 17:01; Start 11/14/16 at 16:30; Stop 11/14/16 at 18: 29; Status DC Iohexol 100 ml 100 ml STK-MED ONCE IV Last administered on 11/14/16 16:59; Start 11/14/16 at 16:59; Stop 11/14/16 at 17:00; Status DC Sodium Chloride (NS 1000 ml Inj) 1,000 ml @ 100 mls/hr Q10H IV Last administered on 11/20/16 06:13; Start 11/14/16 at 20:00 Sodium Chloride (NS Flush) 2 ml UNSCH PRN IV FLUSH FLUSH AFTER USING IV ACCESS Last administered on 11/19/16 22:33; Start 11/14/16 at 18:00 Sodium Chloride (NS Flush) 2 ml BID IV FLUSH Last administered on 11/20/16 09: 43; Start 11/14/16 at 21:00 Acetaminophen (Tylenol) 650 mg Q4H PRN PO TEMP > 100.4; Start 11/14/16 at 18:00 Ondansetron HCl (Zofran Inj) 4 mg Q6H PRN IVP NAUSEA OR VOMITING; Start at 18:00 Magnesium Hydroxide 30 ml 30 ml Q12H PRN PO CONSTIPATION; Start 11/14/16 at 18: 00 Piperacillin Sod/ Tazobactam Sod 100 ml @ 200 mls/hr Q6H IV Last administered on 11/15/16 08:53; Start 11/14/16 at 21:00; Stop 11/15/16 at 09:11; Status DC Vancomycin HCl 1250 mg/Sodium Chloride 262.5 ml @ 262.5 mls/ hr Q24H IV ; Start 11/14/16 at 18:00; Status UNV Pharmacy Profile Note 0 ml @ 0 mls/hr UNSCH OTHER ; Start 11/14/16 at 18:00; Stop 11/15/16 at 09:11; Status DC Vancomycin HCl/ Sodium Chloride (Vancomycin Inj/ NS 500 ml Inj) 516 ml @ 250 mls/hr Q12H IV Last administered on 11/15/16 00:16; Start 11/14/16 at 22:00; Stop 11/15/16 at 09:12; Status DC Miscellaneous Information SPECIFIC LAB TO BE MOISÉS... ONCE ONCE .XX ; Start at 09:45; Stop 11/16/16 at 09:46; Status Cancel Amlodipine Besylate (Norvasc) 5 mg DAILY PO Last administered on 11/20/16 09: 43; Start 11/14/16 at 21:15 Albuterol Sulfate (Ventolin Hfa Inh) 1 puff Q4H PRN INH SHORTNESS OF BREATH Last administered on 11/15/16 00:25; Start 11/14/16 at 21:15 Famotidine (Pepcid) 20 mg BID PO Last administered on 11/19/16 08:07; Start 11/15/16 at 09:00; Stop 11/19/16 at 14:25; Status DC Dextrose (D50w (Vial) Inj) 25 ml UNSCH PRN IV PUSH HYPOGLYCEMIA-SEE COMMENTS; Start 11/14/16 at 21:15 Glucagon (Glucagon Inj) 1 mg UNSCH PRN OTHER HYPOGLYCEMIA-SEE COMMENTS; Start 11/14/16 at 21:15 Insulin Aspart (NovoLOG SUPPLEMENTAL SCALE) 1 ACHS SLIDING SCALE SQ Last administered on 11/20/16 11:51; Start 11/15/16 at 07:00; Stop 11/20/16 at 13:43 ; Status DC Hydromorphone HCl (Dilaudid Pf Inj) 0.5 mg Q4H PRN IV PUSH PAIN > 5 Last administered on 11/20/16 10:08; Start 11/14/16 at 21:15 Acetaminophen/ Hydrocodone Bitart ([place] 5-325 Mg) 1 tab Q4H PRN PO PAIN < 5 Last administered on 11/14/16 22:38; Start 11/14/16 at 21:15 Nitroglycerin (Nitro-Dur 0.2 Mg Patch.24 Hr) 1 patch ONCE ONCE T-DERMAL ; Start 11/15/16 at 17:00; Stop 11/15/16 at 17:01; Status Cancel Miscellaneous Information 1 ONCE T-DERMAL ; Start 11/16/16 at 18:00; Stop at 20:00; Status Cancel Iohexol (Omnipaque 350 Inj) 73 ml STK-MED ONCE IV Last administered on 17:01; Start 11/15/16 at 17:01; Stop 11/15/16 at 17:02; Status DC Nitroglycerin (Nitroglycerin 2% Oint) 1 inch DAILY TOPICAL Last administered on 11/20/16 09:43; Start 11/15/16 at 18:21; Stop 11/20/16 at 13:55; Status DC Lorazepam (Ativan Inj) 1 mg UNSCH X1 PRN IV PRIOR TO MRI Last administered on 10:09; Start 11/16/16 at 08:15; Stop 11/16/16 at 16:00; Status DC Gadodiamide 20 ml 20 ml STK-MED ONCE IV Last administered on 11/16/16 11:16; Start 11/16/16 at 11:16; Stop 11/16/16 at 11:17; Status DC Ceftriaxone Sodium/Sodium Chloride (Rocephin Inj/NS Inj) 100 ml @ 200 mls/hr Q24H IV Last administered on 11/20/16 11:52; Start 11/17/16 at 11:00 Methylprednisolone Sodium Succinate (SoluMEDROL INJ) 125 mg ONCE ONCE IV PUSH Last administered on 11/18/16 13:43; Start 11/18/16 at 12:45; Stop 11/18/16 at 12: 46; Status DC Potassium Chloride (KCl) 30 meq Q12HR PO Last administered on 11/20/16 09:43; Start 11/18/16 at 13:00 Methylprednisolone Sodium Succinate (SoluMEDROL INJ) 60 mg TID IV PUSH Last administered on 11/19/16 08:10; Start 11/18/16 at 18:00; Stop 11/19/16 at 14:09; Status DC Albuterol/ Ipratropium (Duoneb Neb) 1 ampule Q6HR NEB NEB Last administered on 11/20/16 09:51; Start 11/18/16 at 16:00 Albuterol/ Ipratropium (Duoneb Neb) 1 ampule Q2HR NEB PRN NEB SHORTNESS OF BREATH; Start 11/18/16 at 13:45 Iohexol (Omnipaque 350 Inj) 60 ml STK-MED ONCE IV Last administered on 15:10; Start 11/18/16 at 15:10; Stop 11/18/16 at 15:11; Status DC Potassium Chloride 30 meq 30 meq ONCE ONCE PO Last administered on 11/18/16 17 :12; Start 11/18/16 at 15:30; Stop 11/18/16 at 15:31; Status DC Magnesium Sulfate/ Dextrose (Magnesium Sulfate 1 Gm Premix) 100 ml @ 100 mls/ hr ONCE ONCE IV Last administered on 11/18/16 17:12; Start 11/18/16 at 15:30; Stop 11/18/16 at 16:29; Status DC Methylprednisolone Sodium Succinate (SoluMEDROL INJ) 1,000 mg ONCE IV ; Start at 15:00; Stop 11/19/16 at 15:15; Status DC Pantoprazole Sodium (Protonix) 40 mg DAILY PO Last administered on 11/20/16 09 :42; Start 11/19/16 at 14:15 Granisetron HCl 1 mg 1 mg ONCE ONCE IV PUSH Last administered on 11/19/16 20: 45; Start 11/19/16 at 15:00; Stop 11/19/16 at 15:01; Status DC Cyclophosphamide 1000 mg/Sodium Chloride 500 ml @ 500 mls/hr DAILY@17 ONCE IV Last administered on 11/19/16 21:15; Start 11/19/16 at 17:00; Stop 11/19/16 at 17:59; Status DC Methylprednisolone Sodium Succinate/ Dextrose (SoluMEDROL INJ/ D5W 100 ml Inj) 116 ml @ 116 mls/hr ONCE ONCE IV Last administered on 11/19/16 17:44; Start 11/19/16 at 16:00; Stop 11/19/16 at 16:59; Status DC Insulin Aspart (NovoLOG SUPPLEMENTAL SCALE) 1 ACHS SLIDING SCALE SQ ; Start 05/29 at 16:00 Insulin Detemir (Levemir Inj) 5 units Q12HR SQ ; Start 11/20/16 at 21:00 Nitroglycerin (Nitroglycerin 2% Oint) 1 inch BID TOPICAL ; Start 11/20/16 at 21: 00 A/P Problem List: (1) Gangrene of finger ICD Code: I96 Status: Acute (2) right lower motor neuron palsy Status: Acute Assessment and Plan Bilateral fingers and right foot with ischemic changes left index finger tip gangrenous -Positive c-ANCA small vessel vasculitis - initially treated empirically for septic embolic disease but that was ruled out. - Hand surgeon and vascular surgeon requesting motorcycle deliverer input for possible vasculitis still pending transfer to [facility]. I was told yesterday patient 1st on the list. - on amlodipine and nitroglycerin for possible Raynaud which did not help with symptoms. Hand surgeon increase nitro today to BID as tolerated so will increased. - CTA of the left upper extremity which was negative, x-ray of the hand which was also negative. - c-ANCA positive and CRP was elevated at 22.9. -tourist escort, edge burnisher, and consultant internship ff. Appreciate their assistance and input. -So far KRYSTIAN negative, C3-C4 within normal limits, immunoglobulins within normal limits, negative Rh factor, negative anti-myeloperoxidase. -Patient started on high-dose Solu-Medrol 1 g once a day and cyclophosphamide. -Per Dr. Jose Garza motorcycle deliverer will see patient today. -We will continue with current regimen. -Renal biopsy held due to possible transfer today since patient was first on the list yesterday. As consultant internship recommended if patient is still here on Sunday for possible biopsy. At the moment patient declined because he is scared that this may delay the transfer. Positive c-ANCA vasculitis -Empiric treatment with cyclophosphamide and high dose of Solu-Medrol. See treatment as above. Left lower lobe crackles -Patient was asymptomatic, but due to the working diagnosis as above a chest x- ray was obtained. -Chest x-ray suggest pleural effusion. CTA was done which showed no PE. CTA show a possible cardiac cysts in which they recommended outpatient PET CT scan. It also so some infrahilar infiltrate. -Corporate Security Officer following. -Patient is Rocephin. 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 - CT scan of the head was done which was negative. -MRI showed sinusitis. - Apply eye patch during the night along with eye ointment at night. - An echo was done which was negative. Sinusitis -Patient on Rocephin. Hyperglycemia -Due to steroid use. -Increase insulin sliding scale to medium scale. Will add Levemir. DVT prophylaxis -SCDs. -Will allow patient to remove SCDs intermittently for brief periods time as long as he is moving his limbs or ambulating. Discharge Planning Per [facility] patient is first on the list to be transferred as of yesterday. Dealt with case management and she stated that she has a most likely today. Dealt with patient's brother Misha Mercado who will be the vault person. His number is [phone]. His brother is considering having patient transferred to [place] since he has not been transfer yet to [facility]. I dealt with case management with his brother present in regards to this. I told his brother that this has to be safe transfer so I will need to consult the other specialist in regards to this. He stated that in the mean time he will wait to see if patient will be transferred to [facility]. Danna Juarez MD Nov 20, 2016 15:36
[2016-11-20] MEDS ORDERED: INSULIN ASPART SUPPLEMENTAL SCALE SQ SCH (16:00)
[2016-11-20] MEDS ORDERED: LORazepam 2 MG/ML VIAL IV PUSH ONE (18:15)
[2016-11-20] MEDS ORDERED: INSULIN DETEMIR 100 UNITS/ML VIAL SQ SCH ×2 (21:00)
[2016-11-20] MEDS ORDERED: NITROGLYCERIN 2% OINT 1 GM PACKET TOPICAL SCH (21:00)
[2016-11-22 17:05] LABS: ALBUMIN SPE 1.71 GM/DL (3.50-5.00); ALPHA 1 GLOBULIN 0.44 GM/DL (0.11-0.29); ALPHA 2 GLOBULIN 1.24 GM/DL (0.22-1.00); BETA GLOBULINS (SPE) 0.69 GM/DL (0.53-1.03)
== END 2016-11-20 18:14 | disposition short-term general hospital (02) | DRG 546 ==
LOC: NEPE 12:57 → NEDA 18:32 → N04B 20:35 → HOCA 11-19 17:30
PROVIDERS: ADMIT Family Medicine; ATTEND Family Medicine
DX: I77.6 Arteritis, unspecified (principal); M31.31 Wegener's granulomatosis with renal involvement; J90 Pleural effusion, not elsewhere classified; M30.0 Polyarteritis nodosa; E11.52 Type 2 diabetes mellitus with diabetic peripheral angiopathy with gangrene; D50.9 Iron deficiency anemia, unspecified; F10.10 Alcohol abuse, uncomplicated; J98.11 Atelectasis; E11.65 Type 2 diabetes mellitus with hyperglycemia; E87.6 Hypokalemia; G51.0 Bell's palsy; J45.909 Unspecified asthma, uncomplicated; I45.10 Unspecified right bundle-branch block; J32.9 Chronic sinusitis, unspecified; R23.0 Cyanosis; M95.0 Acquired deformity of nose; T38.0X5A Adverse effect of glucocorticoids and synthetic analogues, initial encounter; Z79.84 Long term (current) use of oral hypoglycemic drugs
CPT/HCPCS: 70470; 70486; 70498; 70553; 71020; 71275; 73140; 73206; 76937; 80048; 80061; 80076; 80307; 81001; 82570; 82595; 82784; 82785; 82948; 83605; 83615; 83735; 84132; 84157; 84165; 84443; 85025; 85027; 85384; 85610; 85652; 85730; 85810; 86021; 86038; 86140; 86157; 86160; 86335; 86430; 87040; 88184; 93005; 93306; 94150; 94640; 94664; 96361; 96365; 96366; 96367; 96368; 96375; 96376; A9579; J0696; J1170; J1626; J1815; J2060; J2270; J2405; J2543; J2930; J3370; J3475; J3480; J7030; J7040; J7050; J9070; Q9967